=== PATIENT | female | born 1960 | race Caucasian/White ===

== ENCOUNTER 2019-05-27 18:10 | Inpatient (IN) | payer BC, SELFPAY ==
[2019-05-27 18:37] VITALS: BP 158/95; PULSE 78; RESP 16; TEMP 36.6; O2SAT 100; BMI 40.3
[2019-05-27 19:18] LABS: Basophils % 0.4 %; Eosinophils # 0.3 10^3/uL (0.0-0.8); Eosinophils % 2.6 %; Hematocrit 33.9 % (37.0-47.0); Hemoglobin 9.9 g/dL (11.5-15.3); Lymphocytes # 2.7 10^3/uL (0.8-4.8); Lymphocytes % 23.6 %; Mean Corpuscular HGB Conc 29.2 g/dL (30.0-36.0); Mean Corpuscular Hemoglobin 22.8 pg (28.0-34.0); Mean Corpuscular Volume 78.1 fL (81-99); Mean Platelet Volume 8.2 fL (7.4-10.4); Monocytes # 0.8 10^3/uL (0.2-0.9); Monocytes % 6.7 %; Neutrophils # 7.5 10^3/uL (1.8-7.7); Neutrophils % 65.1 %; Nucleated Red Blood Cells % 0 %; Platelet Count 613 10^3/cmm (130-400); Red Blood Count 4.34 10^6/uL (4.1-5.3); White Blood Count 11.4 10^3/uL (4.0-10.0)
[2019-05-27 19:31] LABS: Alanine Aminotransferase 13 U/L (0-33); Albumin Level 3.4 g/dL (3.5-5.2); Alkaline Phosphatase 183 IU/L (35-105); Anion Gap 17.2 (5-19); Aspartate Amino Transferase 17 U/L (0-32); Blood Urea Nitrogen 21 mg/dL (6-20); Calcium 9.6 mg/Dl (8.6-10.0); Carbon Dioxide 28 mmol/L (22-29); Chloride 98 mmol/L (98-107); Globulin 6.2 g/dL (1.3-4.6); Glomerular Filtration Rate 27.2 mL/min (90-130); Glucose 127 mg/dL (74-109); Lipase 58 U/L (13-60); Potassium 4.2 mmol/L (3.5-5.1); Sodium 139 mmol/L (136-145); Total Bilirubin 0.4 mg/dL (0.15-1.2); Total Protein 9.6 g/dL (6.6-8.7)
[2019-05-27 20:11] VITALS: PULSE 72; RESP 16; TEMP 36.6; O2SAT 94
--- NOTE | 2019-05-27 20:35 | ED_ITS ---
Entered by Tania Apple, acting as scribe for Aixa Bueno Heidy May 27, 2019 18:10 HPI - Abdominal Pain General: Chief Complaint: Abdominal Pain Stated Complaint: N/V/D Time Seen by Provider: 05/27/19 20:36 Source: patient and family Mode of arrival: ambulatory History of Present Illness: HPI narrative: 58 y/o female presents to the ED with complaint of L sided abd pain. She reports having N/V/D for about a week. Pt states she was seen by Dr. De La Cruz and was advised to come to the ER for fluids and CTA. MD elicited complaint: abdominal pain Onset (ago): week(s) (1) Severity: moderate Quality: cramping Associated Symptoms: Reports diarrhea, nausea and vomiting; Denies chills, dysuria, fever(s), hematuria and syncope Review of Systems Const: Denies: fever, chills, body aches, fatigue, malaise or diaphoresis Eyes: Denies: change in vision or blurry vision ENMT: Denies: throat pain, painful swallowing, hoarseness, ear pain, ear discharge, Change in hearing or nasal discharge Card: Denies: chest pain, palpitations, irregular heart rhythm, syncope, pre- syncope, shortness of breath on exertion or shortness of breath when lying down Resp: Denies: shortness of breath, productive cough, non-productive cough, wheezing, coughing up blood or chest congestion GI: Reports: nausea, vomiting and diarrhea : Denies: flank pain, painful urination, urinary frequency, urinary urgency, decreased urine ouput, urinary incontinence or blood in urine Musc: Denies: neck pain, back pain, extremity pain, extremity swelling, joint pain, joint swelling, joint warmth or joint stiffness Skin/Breast: Denies: rash, skin tenderness or yellow skin Neuro: Denies: headache, numbness in extremities, weakness in extremities, changes in sensation, lack of coordination, difficulty walking, dizziness, vertigo or confusion Endo: Denies: excessive thirst, tired all the time, cold intolerance, excessive sweating, flushing or hot flashes Zaheer/Lymph: Denies: easy bruising, easy bleeding, petechiae or enlarged lymph nodes All/Imm: Denies: hives, throat swelling, tongue swelling, facial swelling or acute wheezing PFSH ED PFSH: Statuses (acute, chronic, etc) shown below reflect problem list status as previously entered and may not be historically accurate Social History Smoking and tobacco status: never smoked Physical Exam Const: COMMON NORMALS: no apparent distress, oriented x3, no limitations, healthy appearing and well nourished EXAM LIMITATIONS: no altered mental status GENERAL APPEARANCE: cooperative, well kempt and well developed ORIENTATION/CONSCIOUSNESS: Yes awake HENMT: COMMON NORMALS: normocephalic, head/scalp atraumatic, hearing grossly normal bilaterally, external ears normal, EAC's normal, external nose normal and moist oral mucous membranes HEAD & SCALP: normal to inspection, normocephalic and atraumatic FACE & SINUS: normal facial exam and face symmetric NOSE: external nose normal and nares normal EXTERNAL EAR: Yes external ears normal EXTERNAL AUDITORY CANAL: EAC's normal MOUTH: oral and palatal mucosa normal and tongue normal Eye: COMMON NORMALS: PERRL, EOMs intact bilaterally, conjunctivae normal and no scleral icterus GENERAL EYE: normal appearance of both eyes and normal light reflex CONJUNCTIVA: Yes conjunctivae normal SCLERA: sclerae normal CORNEA: Yes corneas normal PUPIL: Yes PERRL DIRECT OPHTHALMOSCOPY: Yes normal light reflex Neck/C-Spine: COMMON NORMALS: full ROM, no lymphadenopathy, supple, no meningeal signs and no JVD GENERAL: Yes normal visual inspection and Yes trachea midline CERVICAL SPINE: Yes cervical ROM normal Chest: COMMONS NORMALS: inspection of chest normal and palpation of chest normal Resp: COMMON NORMALS: normal respiratory effort, no retractions, no use of accessory muscles and clear to auscultation bilaterally EFFORT & INSPECTION: Yes able to speak in complete sentences AUSCULTATION: clear to auscultation bilaterally Cardio: COMMON NORMALS: no JVD, regular rate, regular rhythm, S1 normal heart sound, S2 normal heart sound, no gallops, no clicks, no murmurs and no rub JUGULAR VENOUS DISTENTION: no JVD RATE: regular rate RHYTHM: regular rhythm HEART SOUNDS: S1 normal and S2 normal : COMMON NORMALS: Yes no CVA tenderness BLADDER/KIDNEY EXAM: Yes no CVA tenderness Back/Pelvis: COMMON NORMALS: no CVA tenderness, thoracic and lumbar spine normal to inspection, no thoracic nor lumbar tenderness and thoraco-lumbar ROM normal Extremity: COMMON NORMALS: normal to inspection, full ROM, normal capillary refill, no joint enlargement, no clubbing, cyanosis or edema and no calf tenderness Neuro: COMMON NORMALS: oriented x3, CN's II-XII intact bilaterally, moves all extremities, no focal motor deficits and no sensory deficits noted MENINGEAL SIGNS: Yes no meningeal signs Psych: COMMON NORMALS: mental status grossly normal, thought process normal, cooperative, affect normal, speech normal and activity/motor behavior normal APPEARANCE: Yes well kempt SPEECH: Yes normal speech THOUGHT PROCESS: normal thought process Skin: COMMON NORMALS: no rashes or lesions noted, skin turgor normal, no jaundice, no petechiae and no mottling GENERAL SKIN EXAM: no rashes or lesions noted and turgor normal Course Vital Signs: Vital signs: Vital Signs Temperature 97.9 F 05/27/19 20:11 Pulse Rate 79 05/27/19 21:45 Respiratory Rate 16 05/27/19 20:41 Blood Pressure 156/94 05/27/19 21:45 Pulse Oximetry 94 05/27/19 20:41 MDM - Abdominal Pain MDM Narrative: Medical decision making narrative: The case was reviewed in full with Dr. Waldrop, he will admit to the hospital for further care. The patient will be admitted for IV hydration for her renal insufficiency, Zosyn for her diverticulitis and further evaluation of her anemia and the mass on her liver. Lab Data: Attestation: I reviewed the patient's lab results. Labs: Lab Results 05/27/19 05/27/19 05/27/19 Range/Units 19:12 19:12 19:12 WBC 11.4 H (4.0-10.0) 10^3/ uL RBC 4.34 (4.1-5.3) 10^6/u L Hgb 9.9 L (11.5-15.3) g/dL Hct 33.9 L (37.0-47.0) % MCV 78.1 L (81-99) fL MCH 22.8 L (28.0-34.0) pg MCHC 29.2 L (30.0-36.0) g/dL RDW 19.0 H (12.1-15.1) % Plt Count 613 H (130-400) 10^3/c mm MPV 8.2 (7.4-10.4) fL Neut % (Auto) 65.1 % Lymph % (Auto) 23.6 % Swift % (Auto) 6.7 % Eos % (Auto) 2.6 % Baso % (Auto) 0.4 % Neut # (Auto) 7.5 (1.8-7.7) 10^3/u L Lymph # (Auto) 2.7 (0.8-4.8) 10^3/u L Swift # (Auto) 0.8 (0.2-0.9) 10^3/u L Eos # (Auto) 0.3 (0.0-0.8) 10^3/u L Baso # (Auto) 0.0 (0.0-0.1) 10^3/u L Nucleated RBC % (a uto) 0 % Nucleated RBCs # 0.0 /100WBC Sodium 139 (136-145) mmol/L Potassium 4.2 (3.5-5.1) mmol/L Chloride 98 (98-107) mmol/L Carbon Dioxide 28 (22-29) mmol/L Anion Gap 17.2 (5-19) BUN 21 H (6-20) mg/dL Creatinine 1.9 H (0.5-0.9) mg/dL GFR Calculation 27.2 L (90-130) mL/min Glucose 127 H (74-109) mg/dL Calcium 9.6 (8.6-10.0) mg/Dl Magnesium (1.7-2.3) mg/dL Total Bilirubin 0.4 (0.15-1.2) mg/dL AST 17 (0-32) U/L ALT 13 (0-33) U/L Alkaline Phosphata se 183 H (35-105) IU/L Troponin T Baselin e (0-10) ng/mL Total Protein 9.6 H (6.6-8.7) g/dL Albumin 3.4 L (3.5-5.2) g/dL Globulin 6.2 H (1.3-4.6) g/dL Lipase 58 (13-60) U/L Urine Color (Yellow) Urine Appearance (CLEAR) Urine pH (5-7) Ur Specific Gravit y (1.005-1.030) Urine Protein (Negative) Urine Glucose (UA) (Normal) Urine Ketones (Negative) Urine Occult Blood (Negative) Urine Nitrate (Negative) Urine Bilirubin (NEGATIVE) Urine Urobilinogen (Negative) mg/dL Ur Leukocyte Zarina ase (Negative) Urine RBC (0-2) /hpf Urine WBC (0-5) /hpf Ur Squamous Epith Cells (0-5) Urine Bacteria (NONE) Urine Mucus Serum Ketones Negative (Negative) 05/27/19 05/27/19 05/27/19 Range/Units 19:12 19:12 21:36 WBC (4.0-10.0) 10^3/ uL RBC (4.1-5.3) 10^6/u L Hgb (11.5-15.3) g/dL Hct (37.0-47.0) % MCV (81-99) fL MCH (28.0-34.0) pg MCHC (30.0-36.0) g/dL RDW (12.1-15.1) % Plt Count (130-400) 10^3/c mm MPV (7.4-10.4) fL Neut % (Auto) % Lymph % (Auto) % Swift % (Auto) % Eos % (Auto) % Baso % (Auto) % Neut # (Auto) (1.8-7.7) 10^3/u L Lymph # (Auto) (0.8-4.8) 10^3/u L Swift # (Auto) (0.2-0.9) 10^3/u L Eos # (Auto) (0.0-0.8) 10^3/u L Baso # (Auto) (0.0-0.1) 10^3/u L Nucleated RBC % (a uto) % Nucleated RBCs # /100WBC Sodium (136-145) mmol/L Potassium (3.5-5.1) mmol/L Chloride (98-107) mmol/L Carbon Dioxide (22-29) mmol/L Anion Gap (5-19) BUN (6-20) mg/dL Creatinine (0.5-0.9) mg/dL GFR Calculation (90-130) mL/min Glucose (74-109) mg/dL Calcium (8.6-10.0) mg/Dl Magnesium 2.3 (1.7-2.3) mg/dL Total Bilirubin (0.15-1.2) mg/dL AST (0-32) U/L ALT (0-33) U/L Alkaline Phosphata se (35-105) IU/L Troponin T Baselin e 24 H (0-10) ng/mL Total Protein (6.6-8.7) g/dL Albumin (3.5-5.2) g/dL Globulin (1.3-4.6) g/dL Lipase (13-60) U/L Urine Color Dark yellow (Yellow) Urine Appearance Cloudy (CLEAR) Urine pH 5 (5-7) Ur Specific Gravit y 1.020 (1.005-1.030) Urine Protein 1+ H (Negative) Urine Glucose (UA) Norm (Normal) Urine Ketones 1+ H (Negative) Urine Occult Blood 2+ H (Negative) Urine Nitrate Positive H (Negative) Urine Bilirubin 1+ H (NEGATIVE) Urine Urobilinogen Norm (Negative) mg/dL Ur Leukocyte Zarina ase 2+ H (Negative) Urine RBC 15-25 H (0-2) /hpf Urine WBC Too numerous to c nt H (0-5) /hpf Ur Squamous Epith Cells 5-10 H (0-5) Urine Bacteria 3+ H (NONE) Urine Mucus Trace Serum Ketones (Negative) Imaging Data ^: CT Abd/Pel: Radiologist's impression: [place] [address] CT Scan Report Signed Patient: Nona Sevilla Unit #: [id number] : 1960 Age/Sex: 58 / F ADM Date: 05/27/19 Loc: ER Room/Bed: Attending Dr: Ordering Provider/Ordering MD: Aixa Bueno DO Date of Service: 05/27/19 Procedure(s): CT abdomen pelvis con [id number] Accession Number(s): [id number] Report Number: [id number] PROCEDURE INFORMATION: Exam: CT Abdomen And Pelvis Without Contrast Exam date and time: 05/27/2019 8:53 PM Age: 58 years old Clinical indication: Nausea and vomiting and other: Diarrhea; Abdominal pain; Localized; Left; Prior surgery; Surgery type: Gb TECHNIQUE: Imaging protocol: Computed tomography of the abdomen and pelvis without contrast. Total DLP: 1784.65 mGy-cm Radiation optimization: All CT scans at this facility use at least one of these dose optimization techniques: automated exposure control; mA and/or kV adjustment per patient size (includes targeted exams where dose is matched to clinical indication); or iterative reconstruction. COMPARISON: No relevant prior studies available. FINDINGS: There is scarring and atelectasis within the lung bases. There are degenerative changes of the spine. There is a 2.7 cm mass along the margin of the medial segment of the left lobe of the liver. This is indeterminate on this noncontrast exam. No additional liver masses are identified. The there is no intrahepatic biliary dilatation. The patient is status post cholecystectomy. The pancreas is unremarkable. The spleen is unremarkable. There is no adrenal mass. There is bilateral perinephric fat stranding. No renal mass is identified. There are no renal calculi or hydronephrosis. The ureters are normal in caliber. No calculi are seen along the course of the ureters. The aorta is normal in caliber. The IVC is normal in caliber. There is no retroperitoneal adenopathy. There is no mesenteric adenopathy. The stomach is unremarkable. There is some mild small bowel distention within the left mid abdomen which may represent ileus. No small bowel wall thickening or transition zone is seen. There is no small bowel obstruction. The ascending and transverse colon appear normal. There are diverticuli involving the descending colon. There is noted to be some thickening of the wall of the distal descending colon and sigmoid colon with some mild pericolonic fat stranding. Findings would suggest mild diverticulitis. There is no abscess or perforation. Within the pelvis: The appendix is not visualized to advantage. However, there is no CT evidence for acute appendicitis. The bladder is unremarkable. The patient is status post hysterectomy. There are no adnexal masses. There is no free fluid within the pelvis. There is no inguinal adenopathy. There is no pelvic adenopathy. CT/CT abdomen pelvis wo con [id number] IMPRESSION: 1. Findings suggestive of diverticulitis involving the sigmoid descending junction. No abscess or perforation. 2. There is some adjacent small bowel distention which may represent reactive ileus. No evidence for small bowel obstruction is seen. 3. 2.7 cm indeterminate mass involving the left lobe of the liver. Comparison to old studies would be helpful. Further evaluation with contrast-enhanced CT or MRI on a nonemergent basis could be performed. Radiation Dose CTDIVOL = (mGy): DLP = 1784.65 (mGy-cm) Dictated By: Yoan Llamas MD Signed By: Yoan Llamas MD Signed Date/Time: 05/27/192121 DD/ 20 EKG Data ^: EKG 1: Attestation: I personally reviewed and interpreted this EKG as follows: EKG interpretation date: 05/27/19 EKG interpretation time: 21:06 Interpretation: Normal sinus rhythm at 70 beats a minute, LVH, normal axis, normal ST-T wave segments. Discharge Plan Discharge Patient Disposition: Admitted As Inpatient Clinical Impression: Diverticulitis, Acute kidney insufficiency Condition: Stable Referrals: Ruel Corral DO [Primary Care Provider] - Coding Level of Care Code ED Photoengraving Photographer for Chg Fwd Exam Problem Focused The documentation recorded by the Zechariah iqbal Ashley, accurately reflects the service I personally performed and the decisions made by Ximena silva Eli N May 27, 2019 18:10
[2019-05-27 20:41] VITALS: BP 155/93; PULSE 75; RESP 16; O2SAT 94
--- NOTE | 2019-05-27 20:44 | ECG_ITS ---
Measurements Intervals [place] Rate: 71 P: 23 AL: 160 QRS: 3 QRSD: 107 T: 56 QT: 396 QTc: 431 SINUS RHYTHM MODERATE VOLTAGE CRITERIA FOR LVH, CONSIDER NORMAL VARIANT [MEETS CRITERIA IN ONE ONE OF: R(aVL), S(V1), R(V5), R(V5/V6)+S(V1)] NONSPECIFIC T-WAVE ABNORMALITY No previous ECG available for comparison Electronically Signed On 05-27-2019 22:03:22 DIGESTER CAPPER by Lubna Koenig M.D. [email or web address] renae
--- NOTE | 2019-05-27 20:44 | CTR_ITS ---
PROCEDURE INFORMATION: Exam: CT Abdomen And Pelvis Without Contrast Exam date and time: 05/27/2019 8:53 PM Age: 58 years old Clinical indication: Nausea and vomiting and other: Diarrhea; Abdominal pain; Localized; Left; Prior surgery; Surgery type: Gb TECHNIQUE: Imaging protocol: Computed tomography of the abdomen and pelvis without contrast. Total DLP: 1784.65 mGy-cm Radiation optimization: All CT scans at this facility use at least one of these dose optimization techniques: automated exposure control; mA and/or kV adjustment per patient size (includes targeted exams where dose is matched to clinical indication); or iterative reconstruction. COMPARISON: No relevant prior studies available. FINDINGS: There is scarring and atelectasis within the lung bases. There are degenerative changes of the spine. There is a 2.7 cm mass along the margin of the medial segment of the left lobe of the liver. This is indeterminate on this noncontrast exam. No additional liver masses are identified. The there is no intrahepatic biliary dilatation. The patient is status post cholecystectomy. The pancreas is unremarkable. The spleen is unremarkable. There is no adrenal mass. There is bilateral perinephric fat stranding. No renal mass is identified. There are no renal calculi or hydronephrosis. The ureters are normal in caliber. No calculi are seen along the course of the ureters. The aorta is normal in caliber. The IVC is normal in caliber. There is no retroperitoneal adenopathy. There is no mesenteric adenopathy. The stomach is unremarkable. There is some mild small bowel distention within the left mid abdomen which may represent ileus. No small bowel wall thickening or transition zone is seen. There is no small bowel obstruction. The ascending and transverse colon appear normal. There are diverticuli involving the descending colon. There is noted to be some thickening of the wall of the distal descending colon and sigmoid colon with some mild pericolonic fat stranding. Findings would suggest mild diverticulitis. There is no abscess or perforation. Within the pelvis: The appendix is not visualized to advantage. However, there is no CT evidence for acute appendicitis. The bladder is unremarkable. The patient is status post hysterectomy. There are no adnexal masses. There is no free fluid within the pelvis. There is no inguinal adenopathy. There is no pelvic adenopathy. CT/CT abdomen pelvis wo con [id number] IMPRESSION: 1. Findings suggestive of diverticulitis involving the sigmoid descending junction. No abscess or perforation. 2. There is some adjacent small bowel distention which may represent reactive ileus. No evidence for small bowel obstruction is seen. 3. 2.7 cm indeterminate mass involving the left lobe of the liver. Comparison to old studies would be helpful. Further evaluation with contrast-enhanced CT or MRI on a nonemergent basis could be performed. Radiation Dose CTDIVOL = (mGy): DLP = 1784.65 (mGy-cm)
[2019-05-27] MEDS: ondansetron 2 mg/ML SDV 2 mL 4 MG IVP (21:02)
[2019-05-27] MEDS: sodium chloride 0.9% 1,000 ML 999 ML IV (21:02)
[2019-05-27] MEDS: morphine 4 mg/mL SDV 1 mL IVP (21:02)
[2019-05-27 21:04] LABS: Ketone (Acetest) Serum Negative (Negative)
--- NOTE | 2019-05-27 21:05 | PC.NURSE ---
Introduced self to patient and initiated vital signs. Pt is A&O x 3 and agreeable. Pt states that the reason for the ER visit today is due to abdominal pain in LLQ of torso. Pt also complaining of some n/v. Reassured patient of needs and will continue to monitor. Awaiting provider at bedside.
[2019-05-27 21:09] LABS: Magnesium 2.3 mg/dL (1.7-2.3)
--- NOTE | 2019-05-27 21:28 | ECG_ITS ---
Measurements Intervals [place] Rate: 70 P: -21 MN: 131 QRS: 3 QRSD: 108 T: 47 QT: 388 QTc: 419 SINUS RHYTHM MODERATE VOLTAGE CRITERIA FOR LVH, CONSIDER NORMAL VARIANT [MEETS CRITERIA IN ONE ONE OF: R(aVL), S(V1), R(V5), R(V5/V6)+S(V1)] NONSPECIFIC T-WAVE ABNORMALITY No previous ECG available for comparison Electronically Signed On 05-27-2019 22:03:17 DISTRIBUTION ANALYST by Lubna Koenig M.D. [email or web address]
[2019-05-27 21:44] LABS: Troponin(5th) Baseline 24 ng/mL (0-10)
[2019-05-27 21:45] VITALS: BP 131/88; BP 143/86; BP 156/94; PULSE 79; PULSE 85; PULSE 98
[2019-05-27 21:55] LABS: Blood Urine 2+ (Negative); Glucose Urine UA Norm (Normal); Ketones Urine 1+ (Negative); Protein Urine 1+ (Negative); Urine Appearance Cloudy (CLEAR); Urine Color Dark Yellow (Yellow); pH Urine 5 (5-7)
[2019-05-27 21:56] LABS: Bilirubin Urine 1+ (NEGATIVE); Leukocyte Esterase Urine 2+ (Negative); Nitrate Urine Positive (Negative); Urobilinogen Urine Norm (Negative)
[2019-05-27 22:04] LABS: Add Urine Culture? Yes; Bacteria Urine 3+; Mucus Urine TRACE; RBC Urine 15-25 /hpf (0-2); WBC Urine TOO NUMEROUS TO CNT /hpf (0-5)
[2019-05-27] MEDS: piperacillin-tazobactam 3.375 GM in sodium chloride 0.9% (plus) 50 ML IV (22:50)
[2019-05-27 23:02] LABS: Glucose Point of Care 93 mg/dL (70-110)
--- NOTE | 2019-05-27 23:07 | P.HP_ITS ---
Providers/Chief Complaint Primary Care Provider: Ruel Corral DO Chief Complaint: DIVERTICULITIS History of Present Illness Nona Sevilla is a 58 year old female who presented to the hospital with chief complaint of 1 week history of nausea vomiting and diarrhea. Patient is stating that she went to [place] with her and 8 breakfast at [facility] last week around Sunday and since then she has been having nausea and vomiting, she has not been able to keep anything down, she has had more than 20 episodes of emesis, she has not noticed any blood in her vomitus, she also experienced diarrhea after few episodes of nausea and vomiting her diarrhea consisted of small quantity of liquid stools without any blood, she did notice subjective fever but did not measure temperature with thermometer, she was feeling extrem marsha tired and lethargic, for last 1 week her p.o. intake has been very poor, she is denying recent travel outside [facility], camping. She has cats as pets, her has an outside dog. Patient is stating that her PCP Dr. Corral did EGD and colonoscopy. EGD showed gastric ulcer and colonoscopy was unremarkable. She is denying any history of constipation. Diagnostics in ER showed normal hemodynamics with leukocytosis and diverticulitis without abscess hospital service was requested to admit the patient because of her recurrent nausea and vomiting and poor p.o. intake with [facility], there are incidental finding of liver mass, Review of Systems Const: Reports: chills, body aches, change in appetite, change in weight, fatigue and malaise Eyes: Denies: change in vision ENMT: Denies: throat pain Card: Denies: chest pain Resp: Denies: shortness of breath GI: Reports: abdominal pain, nausea, vomiting, heartburn/indigestion and diarrhea; Denies: vomiting blood, coffee grounds in vomit, difficulty swallowing, constipation, bloating or cramping : Denies: flank pain or difficulty urinating Musc: Denies: neck pain Skin/Breast: Denies: rash Neuro: Denies: headache Psych: Reports: anxiety Endo: Denies: excessive urination Zaheer/Lymph: Denies: easy bruising All/Imm: Denies: hives Medications/Allergies Allergies Allergy/AdvReac Type Severity Reaction Status Date / Time nabumetone [From Relafen] Allergy ADR-Nausea Verified 05/27/19 18:37 prochlorperazine Allergy ADR/ALGY-Pa Verified 05/27/19 18:37 [From Compazine] lpitations topiramate [From Topamax] Allergy ADR-Agitate Verified 05/27/19 18:37 d lodine Allergy ADV-Weaknes Uncoded 05/27/19 18:37 s nasoquart Allergy ADR-Nausea Uncoded 05/27/19 18:37 PFSH Acute PFSH: Statuses (acute, chronic, etc) shown below reflect problem list status as previously entered and may not be historically accurate Medical History (Updated 05/27/19 @ 23:32 by Aria Waldrop MD) Anxiety (Acute) Chronic GERD (Acute) Gastric ulcer (Acute) HX: benign breast biopsy (Acute) Insulin dependent diabetes mellitus (Acute) Iron deficiency anemia (Acute) Normal colonoscopy (Acute) Type 2 diabetes mellitus (Acute) Surgical History (Updated 05/27/19 @ 23:32 by Aria Waldrop MD) H/O arthroscopic knee surgery (Acute) H/O discectomy (Acute) History of esophagogastroduodenoscopy (EGD) (Acute) History of hysterectomy (Acute) History of tubal ligation (Acute) Hx of cholecystectomy (Acute) Family History (Updated 05/27/19 @ 23:33 by Aria Waldrop MD) Father CAD (coronary artery disease) Mother CAD (coronary artery disease) Social History (Updated 05/27/19 @ 23:33 by Aria Waldrop MD) Smoking and tobacco status: never smoked Alcohol intake: never Substance/Drug Use: never Lives independently: Yes Household members: spouse Marital status: Vitals/I&O/Wt Last Vital Signs Temp 97.9 F 05/27/19 20:11 Pulse 79 05/27/19 21:45 Resp 16 05/27/19 20:41 BP 156/94 05/27/19 21:45 Pulse Ox 94 05/27/19 20:41 05/27/19 05/27/19 05/28/19 14:59 22:59 06:59 Intake Total 340.19 / 340.19 Balance 340.19 / 340.19 Weight last 48 hrs Weight 113.398 kg Physical Exam Narrative: EXAM NARRATIVE: Morbidly obese female who is sitting comfortably in her bed Normal hemodynamics S1-S2 without any murmur or signs of heart failure or JVD Clear to auscultation lungs without any adventitious sounds or wheezing Abdomen is soft, bowel sounds are present in all quadrants, visceral obesity positive, mild tenderness on deep palpation left lower quadrant otherwise no signs of peritonitis No CVA tenderness Nonfocal neurological exam Skin shows no signs ischemia gangrene ulcer No lower extremity swelling Appropriate mood and affect Data : 05/27/19 19:12 05/27/19 19:12 A&P Assessment and plan (1) Diverticulitis: Status: Acute Code(s): K57.92 - Diverticulitis of intestine, part unspecified, without perforation or abscess without bleeding (2) Acute kidney insufficiency: Status: Acute Code(s): N28.9 - Disorder of kidney and ureter, unspecified (3) Anemia: Status: Acute Code(s): D64.9 - Anemia, unspecified (4) Liver mass: Status: Acute Code(s): R16.0 - Hepatomegaly, not elsewhere classified Additional A&P Information Mild non-complicated diverticulitis No signs of abscess on CT abdomen Recurrent nausea vomiting secondary to ileus necessitating inpatient care I will keep her on IV fluids with clear liquid diet and advance diet as tolerated, keep her on Zosyn for now Once she is able to tolerate her diet she will be ready for discharge Incidental finding of liver mass 2.7 cm No previous history of cancers or family history of gastric cancers however she had EGD with positive gastric ulcer PCP is Dr. Corral would request records in the morning I will get liver ultrasound, she will need another ultrasound in 6 months Iron deficiency anemia She had EGD and colonoscopy in 2019 which showed gastric ulcer Acute kidney injury secondary to dehydration and recurrent emesis I will keep her on IV fluids, anticipating improvement with IV fluid resuscitation GERD and gastric ulcer: I would keep her on Protonix 20mg IV daily Full code DVT prophylaxis: Contraindicated her hemoglobin trended down to 9, her baseline is around 10-11, I would use SCDs for now Attestations Medical Necessity Statement*: Anticipating her discharge in less than 48 hours once she is able to tolerate her diet Time Spent in Patient Care: (>than 50% of time spent in counselling and/or direct pt care on unit) . 50 Coding Level of Care Code Acute Capacitor Repairer for Chg Fwd Diagnoses Diverticulitis K57.92 Acute kidney insufficiency N28.9 Anemia D64.9 Liver mass R16.0
[2019-05-28] VITALS (8 sets, daily range): BP systolic 115–137; BP diastolic 76–89; PULSE 71–93; RESP 16–32; TEMP 36.7–37; O2SAT 90–97
[2019-05-28] MEDS: ondansetron 2 mg/ML SDV 2 mL 4 MG IVP ×4 (01:50→19:42)
[2019-05-28] MEDS: sodium chloride 0.9% 1,000 ML 75 ML IV ×2 (01:50→16:45)
[2019-05-28 02:28] LABS: Ferritin 85 ng/mL (15-150); Iron 31 ug/dL (37-145); Percent Saturation 12.7 % (20-50); Total Iron Binding Capacity 244 mg/dL; Unsaturated Iron Binding 213 ug/dL (112-347)
[2019-05-28] MEDS: piperacillin-tazobactam 3.375 GM in sodium chloride 0.9% (plus) 50 ML IV ×3 (06:19→22:41)
[2019-05-28 06:49] LABS: Glucose Point of Care 45 mg/dL (70-110)
--- NOTE | 2019-05-28 06:52 | PC.NURSE ---
HYPOGLYCEMIA BS in AM is 42, per protocol patient given 8 oz of orange juice, patient is alert and oriented x 4 and no acute distress at this time. Will recheck BS again in 15 minutes.
--- NOTE | 2019-05-28 07:19 | PC.NURSE ---
HYPOGLYCEMIA BS in AM is 45, per protocol patient given 8 oz of orange juice, patient is alert and oriented x 4 and no acute distress at this time. Will recheck BS again in 15 minutes
[2019-05-28 07:27] LABS: Glucose Point of Care 45 mg/dL (70-110)
[2019-05-28 07:49] LABS: Glucose Point of Care 70 mg/dL (70-110)
[2019-05-28] MEDS: pantoprazole 40 mg SDV 20 MG IVP (09:45)
--- NOTE | 2019-05-28 10:35 | PC.RESP ---
pt sleeping with s/s ayad
[2019-05-28 12:14] LABS: Glucose Point of Care 161 mg/dL (70-110)
[2019-05-28 16:49] LABS: Glucose Point of Care 138 mg/dL (70-110)
--- NOTE | 2019-05-28 19:31 | PM.PN ---
Subjective Subjective: Interval history: Patient states that she is doing better this morning, mild, no vomiting, no lightheadedness, no dizziness, continues to have some left lower quadrant pain, no fevers, no chills Vitals/I&O/Wt Last Vital Signs Temp 98.6 F 05/28/19 15:51 Pulse 72 05/28/19 15:51 Resp 16 05/28/19 15:51 BP 115/76 05/28/19 15:51 Pulse Ox 96 05/28/19 15:51 05/28/19 05/28/19 05/28/19 06:59 14:59 22:59 Intake Total 4693.00 / 5033.19 530 / 530 1476.75 / Balance 4693.00 / 5033.19 530 / 530 1476.75 / Weight last 48 hrs Weight 113.398 kg Physical Exam Const: COMMON NORMALS: no apparent distress and oriented x3 HENMT: COMMON NORMALS: normocephalic HEAD & SCALP: normocephalic Neck/C-Spine: COMMON NORMALS: no JVD Resp: COMMON NORMALS: normal respiratory effort, no retractions, no use of accessory muscles and clear to auscultation bilaterally AUSCULTATION: clear to auscultation bilaterally Cardio: COMMON NORMALS: no JVD, regular rate, regular rhythm, S1 normal heart sound and S2 normal heart sound RATE: regular rate RHYTHM: regular rhythm HEART SOUNDS: S1 normal and S2 normal GI: COMMON NORMALS: normal to inspection, nondistended, normoactive bowel sounds, soft to palpation, no hepatosplenomegaly and no masses AUSCULTATION: Yes hypoactive bowel sounds PALPATION: Yes soft, Yes tender Details: LLQ and Yes no hepatosplenomegaly Extremity: COMMON NORMALS: normal capillary refill, no clubbing, cyanosis or edema, no calf tenderness and no pedal edema Neuro: COMMON NORMALS: oriented x3 Psych: COMMON NORMALS: mental status grossly normal Data : 05/27/19 19:12 05/27/19 19:12 A&P Assessment and plan (1) Diverticulitis: -Continue gentle hydration -Advance to full liquid diet -Continue Zosyn Status: Acute Code(s): K57.92 - Diverticulitis of intestine, part unspecified, without perforation or abscess without bleeding (2) Acute kidney insufficiency: Continue IV fluids Status: Acute Code(s): N28.9 - Disorder of kidney and ureter, unspecified (3) Anemia: Likely related to slow GI bleed related to gastric ulcer seen on EGD a year ago Continue Protonix, add Carafate Ferrous sulfate twice daily Will require an outpatient EGD once stable Status: Acute Code(s): D64.9 - Anemia, unspecified (4) Liver mass: Has a 2.7 cm liver mass We will order an AFP Will require outpatient follow-up with oncology Status: Acute Code(s): R16.0 - Hepatomegaly, not elsewhere classified Additional A&P Information Mild non-complicated diverticulitis No signs of abscess on CT abdomen Recurrent nausea vomiting secondary to ileus necessitating inpatient care I will keep her on IV fluids with clear liquid diet and advance diet as tolerated, keep her on Zosyn for now Once she is able to tolerate her diet she will be ready for discharge Incidental finding of liver mass 2.7 cm No previous history of cancers or family history of gastric cancers however she had EGD with positive gastric ulcer PCP is Dr. Corral would request records in the morning I will get liver ultrasound, she will need another ultrasound in 6 months Iron deficiency anemia She had EGD and colonoscopy in 2019 which showed gastric ulcer Acute kidney injury secondary to dehydration and recurrent emesis I will keep her on IV fluids, anticipating improvement with IV fluid resuscitation GERD and gastric ulcer: I would keep her on Protonix 20mg IV daily Full code DVT prophylaxis: Contraindicated her hemoglobin trended down to 9, her baseline is around 10-11, I would use SCDs for now Attestations Medical Necessity Statement*: Patient requires continued hospitalization, for acute diverticulitis Coding Level of Care Code Acute Clinical Services Manager for [facility] Diagnoses Diverticulitis K57.92 Acute kidney insufficiency N28.9 Anemia D64.9 Liver mass R16.0
[2019-05-28] MEDS: ferrous sulfate EC 325 mg Tablet PO (20:08)
[2019-05-28] MEDS: sucralfate 1 gm Tablet PO (20:25)
[2019-05-28 20:47] LABS: Tumor Marker Alpha Fetoprotein 1.1 ng/mL (0-8.3)
[2019-05-28 21:19] LABS: Glucose Point of Care 133 mg/dL (70-110)
[2019-05-28] MEDS: insulin glargine 100 units/1 mL 30 UNIT SUBCUT (22:41)
[2019-05-29] VITALS: BP 127/74; PULSE 78; RESP 20; TEMP 36.9; O2SAT 95
[2019-05-29] MEDS: ondansetron 2 mg/ML SDV 2 mL 4 MG IVP ×2 (01:05→08:49)
[2019-05-29 04:00] VITALS: BP 132/76; PULSE 74; RESP 20; TEMP 36.6; O2SAT 94
[2019-05-29 06:05] LABS: Basophils % 0.3 %; Eosinophils # 0.2 10^3/uL (0.0-0.8); Eosinophils % 2.6 %; Hematocrit 29.1 % (37.0-47.0); Hemoglobin 8.3 g/dL (11.5-15.3); Lymphocytes # 1.6 10^3/uL (0.8-4.8); Lymphocytes % 21.6 %; Mean Corpuscular HGB Conc 28.5 g/dL (30.0-36.0); Mean Corpuscular Hemoglobin 23.4 pg (28.0-34.0); Mean Corpuscular Volume 82.2 fL (81-99); Mean Platelet Volume 7.8 fL (7.4-10.4); Monocytes # 0.5 10^3/uL (0.2-0.9); Neutrophils % 67.6 %; Nucleated Red Blood Cells % 0 %; Platelet Count 449 10^3/cmm (130-400); Red Blood Count 3.54 10^6/uL (4.1-5.3); Red Cell Distribution Width 19.4 % (12.1-15.1); White Blood Count 7.4 10^3/uL (4.0-10.0)
[2019-05-29] MEDS: sucralfate 1 gm Tablet PO ×2 (06:15→12:21)
[2019-05-29] MEDS: sodium chloride 0.9% 1,000 ML 75 ML IV (06:17)
[2019-05-29] MEDS: piperacillin-tazobactam 3.375 GM in sodium chloride 0.9% (plus) 50 ML IV (06:17)
[2019-05-29 06:25] LABS: Alanine Aminotransferase 7 U/L (0-33); Albumin Level 2.7 g/dL (3.5-5.2); Alkaline Phosphatase 133 IU/L (35-105); Anion Gap 14.1 (5-19); Aspartate Amino Transferase 11 U/L (0-32); Blood Urea Nitrogen 11 mg/dL (6-20); Calcium 8.8 mg/Dl (8.6-10.0); Carbon Dioxide 27 mmol/L (22-29); Chloride 108 mmol/L (98-107); Globulin 5.1 g/dL (1.3-4.6); Glomerular Filtration Rate 38.6 mL/min (90-130); Glucose 68 mg/dL (74-109); Magnesium 1.9 mg/dL (1.7-2.3); Phosphorus 3.4 mg/dL (2.5-4.5); Potassium 4.1 mmol/L (3.5-5.1); Sodium 145 mmol/L (136-145); Total Bilirubin 0.4 mg/dL (0.15-1.2); Total Protein 7.8 g/dL (6.6-8.7)
[2019-05-29 07:01] LABS: Glucose Point of Care 61 mg/dL (70-110)
[2019-05-29 07:44] VITALS: BP 134/79; PULSE 70; RESP 18; TEMP 37.2; O2SAT 93
[2019-05-29] MEDS: pantoprazole 40 mg SDV IVP (08:49)
[2019-05-29] MEDS: ferrous sulfate EC 325 mg Tablet PO (08:49)
[2019-05-29 11:09] LABS: Glucose Point of Care 197 mg/dL (70-110)
[2019-05-29 12:00] VITALS: BP 133/82; PULSE 79; RESP 18; TEMP 36.9; O2SAT 94
[2019-05-29] MEDS: metroNIDAZOLE 500 MG Tablet PO (14:25)
--- NOTE | 2019-05-29 15:01 | PM.DCS ---
Discharge Providers Date of Admission: 05/28/19 19:35 Date of Discharge: 05/29/19 Attending Provider at Admission: Aria Waldrop MD Attending Provider at Discharge: Baudilio Navarrete MD Primary Care Provider: Ruel Corral DO Diagnoses at Discharge Discharge Diagnosis (1) Diverticulitis: Status: Acute (2) Acute kidney insufficiency: Status: Acute (3) Anemia: Status: Acute (4) Liver mass: Status: Acute Reason for Visit Reason for Visit: Reason For Visit: DIVERTICULITIS Hospital Course Hospital Course: This is a 15-year-old female who presents to clinic for a one-week history of abdominal pain, nausea, vomiting and diarrhea. Patient was admitted for acute diverticulitis, received IV hydration, pain control, broad-spectrum antibiotics, clinically improved, was discharged on ciprofloxacin and Flagyl for 12 remaining days, and instructions to drink plenty of electrolyte balance fluids, and to slowly advance diet as tolerated. Patient was also found to have anemia on admission, had a an EGD in 2019 which showed a gastric ulcer, has a history of iron deficiency anemia, thus likely patient has a slow upper GI bleed related to her gastric ulcer. She was discharged on Protonix 40 twice daily, Carafate, hemoglobin on discharge was 8.3, she was instructed to recheck her hemoglobin in 3 days, with a follow-up with primary care provider next week, and consideration of a repeat EGD with surgery as outpatient in 1 month. Patient was advised if she had bloody or black stools or lightheadedness or dizziness come back to the emergency room. Patient was advised to avoid NSAIDs or aspirin. In addition patient on imaging was found to have an incidental 2.7 cm indeterminate mass involving the left lobe of the liver, her AFP was 1.1, patient was instructed to follow-up with oncology in 1 month. Physical Exam Const: COMMON NORMALS: no apparent distress and oriented x3 HENMT: COMMON NORMALS: normocephalic HEAD & SCALP: normocephalic Neck/C-Spine: COMMON NORMALS: no JVD Resp: COMMON NORMALS: normal respiratory effort, no retractions, no use of accessory muscles and clear to auscultation bilaterally AUSCULTATION: clear to auscultation bilaterally Cardio: COMMON NORMALS: no JVD, regular rate, regular rhythm, S1 normal heart sound and S2 normal heart sound RATE: regular rate RHYTHM: regular rhythm HEART SOUNDS: S1 normal and S2 normal GI: COMMON NORMALS: normal to inspection, nondistended, normoactive bowel sounds, soft to palpation and no hepatosplenomegaly AUSCULTATION: Yes hypoactive bowel sounds PALPATION: Yes soft, Yes tender and Yes no hepatosplenomegaly Extremity: COMMON NORMALS: normal capillary refill, no clubbing, cyanosis or edema, no calf tenderness and no pedal edema Neuro: COMMON NORMALS: oriented x3 Psych: COMMON NORMALS: mental status grossly normal Discharge Data Data Completed and Pending: Completed Studies During Hospitalization Category Date Time Status CT abdomen pelvis wo con [id number] Urge nt Cat Scan 05/27/19 20:44 Completed Pending at discharge Category Date Time Status CBC [Complete Blo od Count w/Auto] A M LABS Lab 05/30/19 04:00 Ordered CBC [Complete Blo od Count w/Auto] A M LABS Lab 05/31/19 04:00 Ordered Comprehensive Met abolic Panel AM LA BS Lab 05/30/19 04:00 Ordered Comprehensive Met abolic Panel AM LA BS Lab 05/31/19 04:00 Ordered Gastricult Occult BLD Routine Lab 05/28/19 01:27 Ordered Magnesium AM LABS Lab 05/30/19 04:00 Ordered Magnesium AM LABS Lab 05/31/19 04:00 Ordered Phosphorus AM LAB S Lab 05/30/19 04:00 Ordered Phosphorus AM LAB S Lab 05/31/19 04:00 Ordered Urine Culture Sta t Lab 05/27/19 21:36 Results Labs from last 24 hours 05/29/19 05/29/19 05/29/19 11:03 06:43 05:54 WBC RBC Hgb Hct MCV MCH MCHC RDW Plt Count MPV Neut % (Auto) Lymph % (Auto) [place] % (Auto) Eos % (Auto) Baso % (Auto) Neut # (Auto) Lymph # (Auto) [place] # (Auto) Eos # (Auto) Baso # (Auto) Nucleated RBC % (a uto) Nucleated RBCs # Sodium 145 Potassium 4.1 Chloride 108 H Carbon Dioxide 27 Anion Gap 14.1 BUN 11 Creatinine 1.4 H GFR Calculation 38.6 L Glucose 68 L POC Glucose 197 61 Calcium 8.8 Phosphorus 3.4 Magnesium 1.9 Total Bilirubin 0.4 AST 11 ALT 7 Alkaline Phosphata se 133 H Total Protein 7.8 Albumin 2.7 L Globulin 5.1 H Tumor Marker AFP 05/29/19 05/28/19 05/28/19 05:54 21:10 19:56 WBC 7.4 RBC 3.54 L Hgb 8.3 L Hct 29.1 L MCV 82.2 MCH 23.4 L MCHC 28.5 L RDW 19.4 H Plt Count 449 H MPV 7.8 Neut % (Auto) 67.6 Lymph % (Auto) 21.6 [place] % (Auto) 7.0 Eos % (Auto) 2.6 Baso % (Auto) 0.3 Neut # (Auto) 5.0 Lymph # (Auto) 1.6 [place] # (Auto) 0.5 Eos # (Auto) 0.2 Baso # (Auto) 0.0 Nucleated RBC % (a uto) 0 Nucleated RBCs # 0.0 Sodium Potassium Chloride Carbon Dioxide Anion Gap BUN Creatinine GFR Calculation Glucose POC Glucose 133 Calcium Phosphorus Magnesium Total Bilirubin AST ALT Alkaline Phosphata se Total Protein Albumin Globulin Tumor Marker AFP 1.1 05/28/19 16:43 WBC RBC Hgb Hct MCV MCH MCHC RDW Plt Count MPV Neut % (Auto) Lymph % (Auto) [place] % (Auto) Eos % (Auto) Baso % (Auto) Neut # (Auto) Lymph # (Auto) [place] # (Auto) Eos # (Auto) Baso # (Auto) Nucleated RBC % (a uto) Nucleated RBCs # Sodium Potassium Chloride Carbon Dioxide Anion Gap BUN Creatinine GFR Calculation Glucose POC Glucose 138 Calcium Phosphorus Magnesium Total Bilirubin AST ALT Alkaline Phosphata se Total Protein Albumin Globulin Tumor Marker AFP Vitals: Last Vital Signs Temp 98.4 F 05/29/19 12:00 Pulse 79 05/29/19 12:00 Resp 18 05/29/19 12:00 BP 133/82 05/29/19 12:00 Pulse Ox 94 05/29/19 12:00 Discharge Plan Discharge Patient Disposition: Home, Self-Care Condition: Stable Prescriptions: New sucralfate 1 gram Tablet 1 g PO AC&BEDTIME 14 Days Qty: 28 RF: 0 metronidazole 500 mg Tablet 500 mg PO TID 12 Days Qty: 36 RF: 0 ciprofloxacin HCl 500 mg Tablet 500 mg PO BID 12 Days Qty: 24 RF: 0 ferrous sulfate 325 mg (65 mg iron) Tablet,Delayed Release (Dr/Ec) 325 mg PO BIDWM 30 Days Qty: 6 RF: 0 Continued Lantus U-100 Insulin 100 unit/mL Solution 80 unit SUBCUT BID RF: 0 Effexor XR 150 mg Capsule,Extended Release 24hr 150 mg PO DAILY RF: 0 metformin 1,000 mg Tablet Extended Release 24hr 1,000 mg PO BID RF: 0 Changed pantoprazole 40 mg Tablet,Delayed Release (Dr/Ec) 40 mg PO BIDWM 30 Days Qty: 60 RF: 0 Discontinued iron 325 mg (65 mg iron) Tablet 325 mg PO DAILY RF: 0 Discharge Orders: Discharge Order (Routine); Ordered 05/29/19 Ordered By: Baudilio Navarrete Other Ambulatory Orders: Complete Blood Count w/Auto (Routine) Timeframe: 3 Days Location: Determined by Patient Ordered By: Baudilio Navarrete Referrals: Fer Grady MD [Physician] - 1 month Joaquin Natarajan MD [Hospitalist] - 1 month Ruel Corral DO [Primary Care Provider] - Discharge Diet: Advance as tolerated Discharge Activity: Resume usual activity Patient Instructions: Diverticulitis (GEN) Activity Restrictions/Additional Instructions: -For your diverticulitis take antibiotics as prescribed -Please drink plenty of electrolyte balance fluids -If you have recurrent abdominal pain, fevers, nausea please come to the emergency room -For your anemia, follow-up with primary care, continue iron, Protonix, Carafate as prescribed -Please follow-up with general surgery in 1 month for consideration for repeat EGD -For your liver mass please follow-up with oncology in 1 month -For your anemia, hemoglobin discharge was 8.3, recheck hemoglobin in 3 days, follow-up with primary care Discharge Attestations Time Spent in Discharge Care*: greater than 30 min Quality Metrics Clinical Quality Measures During this hospital stay, did patient experience: None Coding Level of Care Code Acute Calibration Engineer for g Fwd Diagnoses Diverticulitis K57.92 Acute kidney insufficiency N28.9 Anemia D64.9 Liver mass R16.0
[2019-05-29 15:13] VITALS: BP 133/82; PULSE 79; RESP 18; TEMP 36.9; O2SAT 94
[2019-05-29 15:35] VITALS: BP 120/71; PULSE 81; RESP 16; TEMP 36.7; O2SAT 95
== END 2019-05-29 15:59 | disposition home or self-care (01) | DRG 392 ==
LOC: ER 23:39 → MEDSURG 05-28 07:44
PROVIDERS: Admitting Provider Internal Medicine; Emergency Provider Emergency Medicine; Family Provider Electrodiagnostic Medicine; PCP Electrodiagnostic Medicine; Visit Provider Family Medicine
DX: K57.92 Diverticulitis of intestine, part unspecified, without perforation or abscess without bleeding (principal); N17.9 Acute kidney failure, unspecified; K56.7 Ileus, unspecified; F41.9 Anxiety disorder, unspecified; K21.9 Gastro-esophageal reflux disease without esophagitis; E86.0 Dehydration; K25.9 Gastric ulcer, unspecified as acute or chronic, without hemorrhage or perforation; E11.9 Type 2 diabetes mellitus without complications; D50.9 Iron deficiency anemia, unspecified; Z90.710 Acquired absence of both cervix and uterus; Z90.49 Acquired absence of other specified parts of digestive tract; R16.0 Hepatomegaly, not elsewhere classified
CPT/HCPCS: 12345; 36415; 36416; 74176; 80053; 81001; 82009; 82105; 82728; 82962; 83540; 83550; 83690; 83735; 84100; 84484; 85025; 87077; 87086; 87186; 93005; 96361; 96365; 96366; 96372; 96374; 96375; 99283; C9113; G0378; J1815; J2270; J2405; J2543; J7030

== ENCOUNTER 2019-06-09 08:02 | Outpatient (CLI) | payer BC, SELFPAY ==
--- NOTE | 2019-06-09 08:21 | CT_ITS ---
WS: [id number] CT ABDOMEN NON-CONTRAST PLUS CONTRAST TECHNIQUE: Noncontrast CT of the abdomen and contrast-enhanced CT of the abdomen with coronal and sag ittal reformatted images. CLINICAL INFORMATION: LIVER MASS COMPARISON: May 27, 2019 DLP: [id number] scans at [facility] use at least one of these dose optimization techniques: automat ed exposure control; mA and/or kV adjustment per patient size (includes targeted exams where dose is matched to clinical indication); or iterative reconstruction. FINDINGS: Again seen is the lobulated low-attenuation lesion in the left hepatic lobe measuring 2.2 x 2.5 cm ad jacent to the falciform ligament. Central stellate enhancement on the arterial phase with persistence on the 5 minute delayed images. Differential considerations include FNH, atypical cavernous hemangio ma, or less likely hepatic adenoma. Recommend 3-6 month follow-up contrast enhanced liver MRI. Lung bases are well aerated. Normal gastroesophageal junction. Normal pancreas. Adrenal glands are no rmal. Normal renal parenchymal enhancement. Upper abdominal aorta is normal. Small disc protrusion L3 -4. CT/CT abdomen wo/w con [id number] IMPRESSION: 1. Again seen is the 2.2 x 2.5 cm low-attenuation lesion left hepatic lobe wit h central stellate enhancement. This persists on the delayed imaging. Different ial considerations include focal nodular hyperplasia, atypical cavernous estella ioma, or less likely hepatic adenoma. Recommend 3-6 month follow-up with gadoli nium enhanced MRI 2. Otherwise no significant changes from the recent examination
[2019-06-09] MEDS: iohexol 300 mg/mL 50 mL Btl PO (08:42)
[2019-06-09] MEDS: iodixanol 320 mg/mL 100mL Btl IV (09:01)
== END 2019-06-09 08:03 | disposition home or self-care (01) ==
LOC: RAD 08:13
PROVIDERS: Family Provider Electrodiagnostic Medicine; PCP Electrodiagnostic Medicine; Visit Provider Electrodiagnostic Medicine
DX: R16.0 Hepatomegaly, not elsewhere classified (principal)
CPT/HCPCS: 74170

== ENCOUNTER 2019-07-08 10:02 | Emergency (ER) | payer BC, SELFPAY ==
[2019-07-08 10:08] VITALS: BP 196/125; PULSE 105; RESP 16; TEMP 36.4; O2SAT 98; BMI 38.7
[2019-07-08 10:57] LABS: Basophils % 0.3 %; Eosinophils # 0.2 10^3/uL (0.0-0.8); Eosinophils % 1.7 %; Hematocrit 36.3 % (37.0-47.0); Hemoglobin 10.8 g/dL (11.5-15.3); Lymphocytes # 2.4 10^3/uL (0.8-4.8); Lymphocytes % 18.4 %; Mean Corpuscular HGB Conc 29.8 g/dL (30.0-36.0); Mean Corpuscular Hemoglobin 24.3 pg (28.0-34.0); Mean Corpuscular Volume 81.8 fL (81-99); Mean Platelet Volume 8.9 fL (7.4-10.4); Monocytes # 0.6 10^3/uL (0.2-0.9); Monocytes % 4.9 %; Neutrophils # 9.5 10^3/uL (1.8-7.7); Neutrophils % 74.4 %; Nucleated Red Blood Cells % 0 %; Platelet Count 328 10^3/cmm (130-400); Red Blood Count 4.44 10^6/uL (4.1-5.3); Red Cell Distribution Width 19.3 % (12.1-15.1); White Blood Count 12.8 10^3/uL (4.0-10.0)
[2019-07-08 11:12] LABS: Alanine Aminotransferase 11 U/L (0-33); Albumin Level 3.8 g/dL (3.5-5.2); Alkaline Phosphatase 127 IU/L (35-105); Anion Gap 18.8 (5-19); Aspartate Amino Transferase 16 U/L (0-32); Blood Urea Nitrogen 10 mg/dL (6-20); Carbon Dioxide 25 mmol/L (22-29); Chloride 100 mmol/L (98-107); Globulin 5.6 g/dL (1.3-4.6); Glomerular Filtration Rate 64.3 mL/min (90-130); Glucose 145 mg/dL (65-115); Lipase 8 U/L (13-60); Potassium 3.8 mmol/L (3.5-5.1); Sodium 140 mmol/L (136-145); Total Bilirubin 0.4 mg/dL (0.15-1.2); Total Protein 9.4 g/dL (6.6-8.7)
--- NOTE | 2019-07-08 11:55 | ED_ITS ---
Entered by Ila Jay, acting as scribe for Jez Lake DO HPI - Abdominal Pain General: Chief Complaint: Abdominal Pain Stated Complaint: ABD PAIN Time Seen by Provider: 07/08/19 11:55 Review of Systems Musc: Denies: joint warmth All/Imm: Denies: acute wheezing PFSH ED PFSH: Social History (Updated 05/27/19 @ 23:33 by Aria Waldrop MD) Smoking and tobacco status: never smoked Alcohol intake: never Lives independently: Yes Household members: spouse Marital status: Course Vital Signs: Vital signs: Vital Signs Temperature 97.6 F 07/08/19 10:08 Pulse Rate 79 07/08/19 13:04 Respiratory Rate 18 07/08/19 13:04 Blood Pressure 155/104 07/08/19 13:04 Pulse Oximetry 98 07/08/19 13:04 MDM - Abdominal Pain Lab Data: Labs: Lab Results 07/08/19 07/08/19 07/08/19 Range/Units 10:40 10:40 12:20 WBC 12.8 H (4.0-10.0) 10^3/ uL RBC 4.44 (4.1-5.3) 10^6/u L Hgb 10.8 L (11.5-15.3) g/dL Hct 36.3 L (37.0-47.0) % MCV 81.8 (81-99) fL MCH 24.3 L (28.0-34.0) pg MCHC 29.8 L (30.0-36.0) g/dL RDW 19.3 H (12.1-15.1) % Plt Count 328 (130-400) 10^3/c mm MPV 8.9 (7.4-10.4) fL Neut % (Auto) 74.4 % Lymph % (Auto) 18.4 % [place] % (Auto) 4.9 % Eos % (Auto) 1.7 % Baso % (Auto) 0.3 % Neut # (Auto) 9.5 H (1.8-7.7) 10^3/u L Lymph # (Auto) 2.4 (0.8-4.8) 10^3/u L [place] # (Auto) 0.6 (0.2-0.9) 10^3/u L Eos # (Auto) 0.2 (0.0-0.8) 10^3/u L Baso # (Auto) 0.0 (0.0-0.1) 10^3/u L Nucleated RBC % (a uto) 0 % Nucleated RBCs # 0.0 /100WBC Sodium 140 (136-145) mmol/L Potassium 3.8 (3.5-5.1) mmol/L Chloride 100 (98-107) mmol/L Carbon Dioxide 25 (22-29) mmol/L Anion Gap 18.8 (5-19) BUN 10 (6-20) mg/dL Creatinine 0.9 (0.5-0.9) mg/dL GFR Calculation 64.3 L (90-130) mL/min Glucose 145 H (65-115) mg/dL Calcium 10.0 (8.5-10.5) mg/dL Total Bilirubin 0.4 (0.15-1.2) mg/dL AST 16 (0-32) U/L ALT 11 (0-33) U/L Alkaline Phosphata se 127 H (35-105) IU/L Total Protein 9.4 H (6.6-8.7) g/dL Albumin 3.8 (3.5-5.2) g/dL Globulin 5.6 H (1.3-4.6) g/dL Lipase 8 L (13-60) U/L Urine Color Yellow (Yellow) Urine Appearance Sl hazy (CLEAR) Urine pH 5 (5-7) Ur Specific Gravit y 1.020 (1.005-1.030) Urine Protein 1+ H (Negative) Urine Glucose (UA) Norm (Normal) Urine Ketones 1+ H (Negative) Urine Blood Neg (Negative) Urine Nitrate Negative (Negative) Urine Bilirubin 1+ H (NEGATIVE) Urine Urobilinogen 1 H (Negative) mg/dL Ur Leukocyte Zarina ase Negative (Negative) Urine RBC 0-4 H (0-2) /hpf Urine WBC 10-15 H (0-5) /hpf Ur Squamous Epith Cells 15-25 H (0-5) Urine Bacteria 1+ H (NONE) Hyaline Casts 0-4 H Urine Mucus 2+ Discharge Plan Discharge Patient Disposition: Home, Self-Care Clinical Impression: Abdominal pain Qualifiers: Abdominal location: left lower quadrant Qualified Code(s): R10.32 - Left lower quadrant pain Condition: Stable Prescriptions: New dicyclomine 20 mg tablet 20 mg PO QID Qty: 20 RF: 0 No Action Lantus U-100 Insulin 100 unit/mL Solution 80 unit SUBCUT BID RF: 0 venlafaxine [Effexor XR] 150 mg Capsule,Extended Release 24hr 150 mg PO DAILY RF: 0 metformin 1,000 mg Tablet Extended Release 24hr 1,000 mg PO BID RF: 0 omeprazole 40 mg Capsule,Delayed Release(Dr/Ec) 40 mg PO DAILY RF: 0 iron 325 mg (65 mg iron) Tablet 325 mg PO DAILY RF: 0 ibuprofen 400 mg Tablet 400 mg PO Q6H PRN (Reason: Pain) RF: 0 Basaglar KwikPen U-100 Insulin 100 unit/mL (3 mL) Insulin Pen See Rx Instructions .ROUTE .COMPLEX RF: 0 Discharge Orders: Discharge Order (Routine); Ordered 07/08/19 Ordered By: Jez Lake Referrals: Ruel Corral DO [Primary Care Provider] - Patient Instructions: Cholecystitis (ED), Abdominal Pain (ED) Coding Level of Care Code ED Manager Validation for Chg Fwd The documentation recorded by the Pierre iqbal Bridget Annette, accurately reflects the service I personally performed and the decisions made by Aleksandra silva Donald P, DO Jul 08, 2019 10:02
--- NOTE | 2019-07-08 12:19 | CT_ITS ---
WS: [id number] CT scan of the abdomen and pelvis with IV contrast. Additional two-dimensional coronal and sagittal r econstruction was performed. 07/08/2019 Clinical Data: diverticulitis Comparison: CT abdomen and pelvis, 06/09/2019. DLP: 1781.[address] scans at [facility] use at least one of these dose optimization techniques: automat ed exposure control; mA and/or kV adjustment per patient size (includes targeted exams where dose is matched to clinical indication); or iterative reconstruction. Findings: The lower lungs show no nodules, masses or effusions. The gallbladder, spleen, adrenal glands and pancreas are normal. The low-attenuation changes in the l eft lobe of liver again are seen. This could also represent focal fat. No change has occurred since t he last examination. The kidneys show equal bilateral contrast excretion with no cyst or masses. The abdominal aorta is normal in size. No appendicitis or diverticulitis is seen. The stomach, small bowel and colon again show only sigmoid diverticula. The bladder is unremarkable. The uterus is absent. No inguinal hernia is seen. 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 L3 and L4 with disc space narrowing and then disc space narrowing at L5-S1.. CT/CT abdomen pelvis w con* [id number] Impression: 1. Numerous sigmoid diverticula but no diverticulitis is seen. 2. Low-density lesion in the left lobe of the liver unchanged.
[2019-07-08 13:04] VITALS: BP 155/104; PULSE 79; RESP 18; O2SAT 98
[2019-07-08 13:30] LABS: Add Urine Microscopic? YES; Bilirubin Urine 1+ (NEGATIVE); Blood Urine Neg (Negative); Glucose Urine UA Norm (Normal); Ketones Urine 1+ (Negative); Leukocyte Esterase Urine Negative (Negative); Nitrate Urine Negative (Negative); Protein Urine 1+ (Negative); Urine Appearance SL Hazy (CLEAR); Urine Color Yellow (Yellow); Urobilinogen Urine 1 mg/dL (Negative); pH Urine 5 (5-7)
[2019-07-08 13:44] LABS: RBC Urine 0-4 /hpf (0-2)
[2019-07-08 13:45] LABS: Bacteria Urine 1+; Mucus Urine 2+; Squamous Epithelial Cell Urine 15-25 (0-5)
[2019-07-08 13:46] LABS: Hyaline Casts Urine 0-4
[2019-07-08 13:47] LABS: Add Urine Culture? No
[2019-07-08] MEDS: iohexol 300 mg/mL 100 mL Btl 95 ML IV (13:57)
[2019-07-08 15:35] VITALS: BP 146/64; PULSE 86; RESP 18; O2SAT 96
== END 2019-07-08 15:35 | disposition home or self-care (01) ==
PROVIDERS: Nurse Practitioner Family; Emergency Provider Family Medicine; Family Provider Electrodiagnostic Medicine; PCP Electrodiagnostic Medicine
DX: R10.9 Unspecified abdominal pain (principal)
CPT/HCPCS: 36415; 74177; 80053; 81001; 83690; 85025; 99282; 99283; Q9967

== ENCOUNTER 2020-03-10 12:05 | Emergency (ER) | payer BC, SELFPAY ==
[2020-03-10 12:15] VITALS: BP 177/146; PULSE 91; RESP 20; TEMP 36.2; O2SAT 97; BMI 42.4
--- NOTE | 2020-03-10 12:24 | XR_ITS ---
WS: [id number] XR chest 1V portable [id number] REASON FOR EXAM: COVID r/o FINDINGS: Mediastinum is somewhat prominent which is likely due to excess mediastinal fat and moderate tortuosi ty of the thoracic aorta. The heart size is normal. No active pulmonary parenchymal pleural disease is noted. The bony thorax is intact. XR/XR chest 1V portable [id number] IMPRESSION: No acute chest abnormality.
--- NOTE | 2020-03-10 12:49 | W.ED.COVID ---
HPI - COVID General: Chief Complaint: COVID symptoms Stated Complaint: SOB, MUSCLE ACHES, DIARRHEA, FEVER Time Seen by Provider: 03/10/20 12:16 Triage information: Has fever, cough or shortness of breath. Exposure to COVID + person last 14 days History of Present Illness: HPI Narrative: This patient is a 59-year-old female who presents today with concerns for Covid. She started having symptoms on Sunday which include body aches, fever, shortness of breath, cough, sore throat, headache, decreased taste and smell. She denies nausea vomiting or diarrhea. She has had 3 potential exposures over the past week. 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 She cannot tell me exactly when the exposures were. She has not been tested. She has a history of diabetes controlled with pills and insulin. She is obese. She denies any history of heart or lung problems. MD complaint: reported COVID exposure and has COVID symptoms Prior covid testing: no COVID 19 common symptoms: positive fever(s), chills, cough, non-productive cough, dyspnea, fatigue, body aches, headache(s), loss of sense of smell and/or taste, throat pain and nasal congestion; negative nausea or vomiting COVID 19 other sytmptoms: negative chest pain Onset (ago): day(s) (4) Severity: moderate Pertinent comorbid conditions: diabetes and obesity Treatment prior to arrival: none COVID Results: SARS-CoV-2 Antigen (Rapid) Negative (Negative) 03/10/20 12:58 03/10/20 Review of Systems General: Reports: 10 or more systems reviewed and unremarkable except in HPI and below Const: Reports: fever(s), chills, body aches and fatigue Eyes: Denies: change in vision ENMT: Reports: throat pain and nasal congestion Card: Denies: chest pain or swelling of feet/ankles Resp: Reports: dyspnea and non-productive cough GI: Denies: abdominal pain, nausea or vomiting : Denies: flank pain or difficulty voiding Musc: Denies: neck pain or back pain Skin/Breast: Denies: rash Neuro: Reports: headache(s) Zaheer/Lymph: Denies: easy bruising or easy bleeding PFS ED PFSH: Medical History Anxiety Chronic GERD Gastric ulcer HX: benign breast biopsy Insulin dependent diabetes mellitus Iron deficiency anemia Normal colonoscopy Type 2 diabetes mellitus Surgical History H/O arthroscopic knee surgery H/O discectomy History of esophagogastroduodenoscopy (EGD) History of hysterectomy History of tubal ligation Hx of cholecystectomy Family History Father CAD (coronary artery disease) Mother CAD (coronary artery disease) Social History Smoking and tobacco status: never smoked Alcohol intake: never Lives independently: Yes Household members: spouse Marital status: Physical Exam Const: COMMON NORMALS: patient oriented x3, no limitations and alert GENERAL APPEARANCE: cooperative HENMT: HEAD & SCALP: normal to inspection FACE & SINUS: normal facial exam Eye: GENERAL EYE: appearance normal, both eyes and all related structures Neck/C-Spine: COMMON NORMALS: supple, no meningeal signs and no JVD Chest: COMMONS NORMALS: normal inspection of the chest Resp: COMMON NORMALS: normal respiratory effort and No use of accessory muscles EFFORT & INSPECTION: Yes decreased respiratory effort Cardio: COMMON NORMALS: no JVD, regular rate, regular rhythm and No murmurs present (Cardio) RATE: regular rate RHYTHM: regular rhythm GI: COMMON NORMALS: Normal to inspection, nondistended, normoactive bowel sounds present, Soft to palpation and non-tender INSPECTION: Yes normal to inspection AUSCULTATION: Yes normoactive bowel sounds PALPATION: Yes Soft to palpation Back/Pelvis: COMMON NORMALS: thoracic and lumbar spine normal to inspection Extremity: COMMON NORMALS: normal to inspection Neuro: COMMON NORMALS: patient oriented x3, moves all extremities, no focal motor deficits and no sensory deficits noted SENSORIUM/ORIENTATION: Yes alert MENINGEAL SIGNS: Yes no meningeal signs Psych: COMMON NORMALS: mental status grossly normal, cooperative and normal affect Skin: COMMON NORMALS: no rashes or lesions noted and turgor normal GENERAL SKIN EXAM: no rashes or lesions noted and turgor normal Course ED course: Patient presents with multiple complaints which could be related to Covid infection. She says she has had 3 exposures over the past week or 2. She has been having malaise. Sats are excellent in the ER. Her work-up is quite benign with no significant changes in inflammatory markers. After some fluid and rest she said she did feel better. We discussed that even though everything looks good today she needs to return if she is feeling worse in any way. What ever is causing her symptoms is still likely contagious and I put her off work until she is symptom-free for 24 hours. Vital Signs: Vital signs: Vital Signs Temperature 97.2 F L 03/10/20 12:15 Pulse Rate 86 03/10/20 16:28 Respiratory Rate 21 H 03/10/20 16:28 Blood Pressure 132/75 03/10/20 16:28 Pulse Oximetry 96 03/10/20 16:28 MDM - COVID Lab Data Result diagrams: 03/10/20 12:58 03/10/20 12:58 Labs: Lab Results 03/10/20 03/10/20 03/10/20 Range/Units 12:58 12:58 12:58 WBC 10.0 (4.0-10.0) 10^3/uL RBC 4.80 (4.1-5.3) 10^6/uL Hgb 11.6 (11.5-15.3) g/dL Hct 39.6 (37.0-47.0) % MCV 82.5 (81-99) fL MCH 24.2 L (28.0-34.0) pg MCHC 29.3 L (30.0-36.0) g/dL RDW 16.4 H (12.1-15.1) % Plt Count 381 (130-400) 10^3/cmm MPV 8.9 (7.4-10.4) fL Neut % (Auto) 73.7 % Lymph % (Auto) 17.5 % Routt % (Auto) 5.5 % Eos % (Auto) 2.2 % Baso % (Auto) 0.8 % Neut # (Auto) 7.35 (1.8-7.7) 10^3/uL Lymph # (Auto) 1.8 (0.8-4.8) 10^3/uL Routt # (Auto) 0.6 (0.2-0.9) 10^3/uL Eos # (Auto) 0.2 (0.0-0.8) 10^3/uL Baso # (Auto) 0.1 (0.0-0.1) 10^3/uL Nucleated RBC % (auto) 0 % Nucleated RBCs # 0.0 /100WBC Fibrinogen 494 (174-498) mg/dL D-Dimer 0.41 (0-0.59) ug/mIFEU Sodium 137 (136-145) mmol/L Potassium 4.5 (3.5-5.1) mmol/L Chloride 100 (98-107) mmol/L Carbon Dioxide 24 (22-29) mmol/L Anion Gap 17.5 (5-19) BUN 18 (6-20) mg/dL Creatinine 1.0 H (0.5-0.9) mg/dL GFR Calculation 56.7 L (90-130) mL/min Glucose 208 H (65-115) mg/dL Calculated Osmolality 292 (285-295) mOsm/kg Lactic Acid (0.5-2.2) mmol/L Lactic Acid (Sepsis) (0.5-2.2) mmol/L Calcium 9.4 (8.5-10.5) mg/dL Ferritin 25 (15-150) ng/mL Total Bilirubin 0.4 (0.15-1.2) mg/dL AST 17 (0-32) U/L ALT 14 (0-33) U/L Alkaline Phosphatase 139 H (35-105) IU/L Troponin T Baseline (0-10) ng/L Troponin T 120 Minute (0-10) ng/L Delta Troponin T (0-10) ABS# C-Reactive Protein 22.8 H (0.0-4.9) mg/L NT-Pro-B Natriuret Pep 31 (0-125) pg/mL Total Protein 8.1 (6.6-8.7) g/dL Albumin 3.9 (3.5-5.2) g/dL Globulin 4.2 (1.3-4.6) g/dL Procalcitonin 0.07 (0-0.5) ng/mL Influenza Type A Ag (Negative) Influenza Type B Ag (Negative) SARS-CoV-2 Ag (Rapid) (Negative) 03/10/20 03/10/20 03/10/20 Range/Units 12:58 12:58 12:58 WBC (4.0-10.0) 10^3/uL RBC (4.1-5.3) 10^6/uL Hgb (11.5-15.3) g/dL Hct (37.0-47.0) % MCV (81-99) fL MCH (28.0-34.0) pg MCHC (30.0-36.0) g/dL RDW (12.1-15.1) % Plt Count (130-400) 10^3/cmm MPV (7.4-10.4) fL Neut % (Auto) % Lymph % (Auto) % Routt % (Auto) % Eos % (Auto) % Baso % (Auto) % Neut # (Auto) (1.8-7.7) 10^3/uL Lymph # (Auto) (0.8-4.8) 10^3/uL Routt # (Auto) (0.2-0.9) 10^3/uL Eos # (Auto) (0.0-0.8) 10^3/uL Baso # (Auto) (0.0-0.1) 10^3/uL Nucleated RBC % (auto) % Nucleated RBCs # /100WBC Fibrinogen (174-498) mg/dL D-Dimer (0-0.59) ug/mIFEU Sodium (136-145) mmol/L Potassium (3.5-5.1) mmol/L Chloride (98-107) mmol/L Carbon Dioxide (22-29) mmol/L Anion Gap (5-19) BUN (6-20) mg/dL Creatinine (0.5-0.9) mg/dL GFR Calculation (90-130) mL/min Glucose (65-115) mg/dL Calculated Osmolality (285-295) mOsm/kg Lactic Acid 2.3 H (0.5-2.2) mmol/L Lactic Acid (Sepsis) (0.5-2.2) mmol/L Calcium (8.5-10.5) mg/dL Ferritin (15-150) ng/mL Total Bilirubin (0.15-1.2) mg/dL AST (0-32) U/L ALT (0-33) U/L Alkaline Phosphatase (35-105) IU/L Troponin T Baseline 15 H (0-10) ng/L Troponin T 120 Minute (0-10) ng/L Delta Troponin T (0-10) ABS# C-Reactive Protein (0.0-4.9) mg/L NT-Pro-B Natriuret Pep (0-125) pg/mL Total Protein (6.6-8.7) g/dL Albumin (3.5-5.2) g/dL Globulin (1.3-4.6) g/dL Procalcitonin (0-0.5) ng/mL Influenza Type A Ag Negative (Negative) Influenza Type B Ag Negative (Negative) SARS-CoV-2 Ag (Rapid) (Negative) 03/10/20 03/10/20 03/10/20 Range/Units 12:58 14:45 15:31 WBC (4.0-10.0) 10^3/uL RBC (4.1-5.3) 10^6/uL Hgb (11.5-15.3) g/dL Hct (37.0-47.0) % MCV (81-99) fL MCH (28.0-34.0) pg MCHC (30.0-36.0) g/dL RDW (12.1-15.1) % Plt Count (130-400) 10^3/cmm MPV (7.4-10.4) fL Neut % (Auto) % Lymph % (Auto) % Routt % (Auto) % Eos % (Auto) % Baso % (Auto) % Neut # (Auto) (1.8-7.7) 10^3/uL Lymph # (Auto) (0.8-4.8) 10^3/uL Routt # (Auto) (0.2-0.9) 10^3/uL Eos # (Auto) (0.0-0.8) 10^3/uL Baso # (Auto) (0.0-0.1) 10^3/uL Nucleated RBC % (auto) % Nucleated RBCs # /100WBC Fibrinogen (174-498) mg/dL D-Dimer (0-0.59) ug/mIFEU Sodium (136-145) mmol/L Potassium (3.5-5.1) mmol/L Chloride (98-107) mmol/L Carbon Dioxide (22-29) mmol/L Anion Gap (5-19) BUN (6-20) mg/dL Creatinine (0.5-0.9) mg/dL GFR Calculation (90-130) mL/min Glucose (65-115) mg/dL Calculated Osmolality (285-295) mOsm/kg Lactic Acid (0.5-2.2) mmol/L Lactic Acid (Sepsis) 1.8 (0.5-2.2) mmol/L Calcium (8.5-10.5) mg/dL Ferritin (15-150) ng/mL Total Bilirubin (0.15-1.2) mg/dL AST (0-32) U/L ALT (0-33) U/L Alkaline Phosphatase (35-105) IU/L Troponin T Baseline (0-10) ng/L Troponin T 120 Minute 15.04 H (0-10) ng/L Delta Troponin T 0.04 (0-10) ABS# C-Reactive Protein (0.0-4.9) mg/L NT-Pro-B Natriuret Pep (0-125) pg/mL Total Protein (6.6-8.7) g/dL Albumin (3.5-5.2) g/dL Globulin (1.3-4.6) g/dL Procalcitonin (0-0.5) ng/mL Influenza Type A Ag (Negative) Influenza Type B Ag (Negative) SARS-CoV-2 Ag (Rapid) Negative (Negative) COVID Results: SARS-CoV-2 Antigen (Rapid) Negative (Negative) 03/10/20 12:58 03/10/20 Discharge Plan Discharge Patient Disposition: Home Clinical Impression: Acute viral syndrome, Exposure to severe acute respiratory syndrome coronavirus 2 (SARS-CoV-2) Condition: Stable Prescriptions: No Action Tylenol Extra Strength 500 mg Tablet 1,000 mg PO PRN RF: 0 metformin 1,000 mg tablet 1,000 mg PO BID RF: 0 duloxetine 60 mg capsule,delayed release(DR/EC) 60 mg PO DAILY RF: 0 omeprazole 40 mg Capsule,Delayed Release(Dr/Ec) 40 mg PO DAILY RF: 0 ferrous sulfate [iron] 325 mg (65 mg iron) Tablet 325 mg PO DAILY RF: 0 Basaglar KwikPen U-100 Insulin 100 unit/mL (3 mL) Insulin Pen 80 unit SUBCUT BID RF: 0 Discharge Orders: Discharge Order (Routine); Ordered 03/10/20 Ordered By: Tiana Lo Referrals: Ruel Corral, [Primary Care Provider] - Discharge Diet: Usual diet Discharge Activity: Resume usual activity Patient Instructions: Viral Syndrome (ED) Stand Alone Forms: Work/School Release Discharge Date/Time: 03/10/20 16:29 Coding Level of Care Code ED Transit Planning Director for Chg Fwd Exam Comprehensive
--- NOTE | 2020-03-10 13:02 | ECG_ITS ---
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 Measurements Intervals [place] Rate: 79 P: -33 NV: 108 QRS: 9 QRSD: 88 T: 67 QT: 353 QTc: 405 Interpretive Statements SINUS RHYTHM WITH SHORT NV INTERVAL NONSPECIFIC T-WAVE ABNORMALITY Compared to ECG 05/27/2019 21:31:43 Short NV interval now present T-wave abnormality still present Electronically Signed On 03-10-2020 18:59:05 COLOR TELEVISION CONSOLE MONITOR by Nuzhat Carter M.D. [id number]
[2020-03-10 13:12] LABS: Basophils # 0.1 10^3/uL (0.0-0.1); Basophils % 0.8 %; Eosinophils # 0.2 10^3/uL (0.0-0.8); Eosinophils % 2.2 %; Hematocrit 39.6 % (37.0-47.0); Hemoglobin 11.6 g/dL (11.5-15.3); Lymphocytes # 1.8 10^3/uL (0.8-4.8); Lymphocytes % 17.5 %; Mean Corpuscular HGB Conc 29.3 g/dL (30.0-36.0); Mean Corpuscular Hemoglobin 24.2 pg (28.0-34.0); Mean Corpuscular Volume 82.5 fL (81-99); Mean Platelet Volume 8.9 fL (7.4-10.4); Monocytes # 0.6 10^3/uL (0.2-0.9); Monocytes % 5.5 %; Neutrophils # 7.35 10^3/uL (1.8-7.7); Neutrophils % 73.7 %; Nucleated Red Blood Cells % 0 %; Platelet Count 381 10^3/cmm (130-400); Red Cell Distribution Width 16.4 % (12.1-15.1)
[2020-03-10 13:34] LABS: SARS Covid-2 Antigen Negative (Negative)
[2020-03-10 13:35] LABS: Influenza A by IFA Negative (Negative); Influenza B by IFA Negative (Negative)
[2020-03-10 13:40] LABS: Lactic Sepsis W/Reflex 2.3 mmol/L (0.5-2.2)
[2020-03-10 13:43] LABS: Fibrinogen 494 mg/dL (174-498)
[2020-03-10 13:45] LABS: D Dimer 0.41 ug/mIFEU (0-0.59)
[2020-03-10 13:51] LABS: NT Pro B Type Natriuretic Pept 31 pg/mL (0-125); Procalcitonin 0.07 ng/mL (0-0.5)
[2020-03-10 14:02] LABS: Alanine Aminotransferase 14 U/L (0-33); Albumin Level 3.9 g/dL (3.5-5.2); Alkaline Phosphatase 139 IU/L (35-105); Anion Gap 17.5 (5-19); Aspartate Amino Transferase 17 U/L (0-32); Blood Urea Nitrogen 18 mg/dL (6-20); C Reactive Protein 22.8 mg/L (0.0-4.9); Calcium 9.4 mg/dL (8.5-10.5); Carbon Dioxide 24 mmol/L (22-29); Chloride 100 mmol/L (98-107); Ferritin 25 ng/mL (15-150); Globulin 4.2 g/dL (1.3-4.6); Glomerular Filtration Rate 56.7 mL/min (90-130); Glucose 208 mg/dL (65-115); Osmolality Calculated 292 mOsm/kg (285-295); Potassium 4.5 mmol/L (3.5-5.1); Sodium 137 mmol/L (136-145); Total Bilirubin 0.4 mg/dL (0.15-1.2); Total Protein 8.1 g/dL (6.6-8.7)
[2020-03-10 14:29] LABS: Troponin(5th) Baseline 15 ng/L (0-10)
[2020-03-10 14:53] VITALS: BP 122/83; PULSE 73; RESP 20; O2SAT 96
[2020-03-10 14:57] LABS: Reflex Lactate Order REFLEX LACTIC ORDERD
--- NOTE | 2020-03-10 15:02 | ECG_ITS ---
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 Measurements Intervals [place] Rate: 79 P: -8 OH: 141 QRS: 19 QRSD: 89 T: 76 QT: 316 QTc: 364 Interpretive Statements SINUS RHYTHM NONSPECIFIC T-WAVE ABNORMALITY Compared to ECG 03/10/2020 13:17:32 Short OH interval no longer present T-wave abnormality still present Electronically Signed On 03-10-2020 19:29:30 ROLL EXAMINER by Nuzhat Carter M.D. [email or web address]
[2020-03-10 15:16] LABS: Troponin 5 2HR 15.04 ng/L (0-10); Troponin 5 2HR Delta 0.04 ABS# (0-10)
[2020-03-10 16:00] LABS: Lactic Acid level (Lactate) 1.8 mmol/L (0.5-2.2)
[2020-03-10 16:28] VITALS: BP 132/75; PULSE 86; RESP 21; O2SAT 96
== END 2020-03-10 16:29 | disposition home or self-care (01) ==
PROVIDERS: Emergency Provider Emergency Medicine; PCP Electrodiagnostic Medicine
DX: B34.9 Viral infection, unspecified (principal); Z20.828 Contact with and (suspected) exposure to other viral communicable diseases; Z79.4 Long term (current) use of insulin; E11.9 Type 2 diabetes mellitus without complications
CPT/HCPCS: 12345; 71045; 80053; 82728; 83605; 83880; 84145; 84484; 85025; 85378; 85384; 86140; 87426; 87804; 93005; 99283; 99284

== ENCOUNTER → 2021-02-15 13:16 | Outpatient (BNVA) | payer BC, SELFPAY | PROVIDERS: PCP Electrodiagnostic Medicine; Referring Provider Electrodiagnostic Medicine; Visit Provider Internal Medicine | DX: E11.22 Type 2 diabetes mellitus with diabetic chronic kidney disease (principal); N18.31 Chronic kidney disease, stage 3a; R53.83 Other fatigue; Z79.4 Long term (current) use of insulin | CPT/HCPCS: 99204 ==

== ENCOUNTER 2021-02-15 14:48 | Outpatient (CLI) | payer BC, SELFPAY ==
[2021-02-15 16:18] LABS: Thyroid Stimulating Hormone 2.82 uIU/mL (0.27-4.20)
[2021-02-15 17:00] LABS: Free T4 Free Thyroxine 0.97 ng/dL (0.82-1.77)
== END 2021-02-15 14:49 | disposition home or self-care (01) ==
LOC: LAB 14:56
PROVIDERS: Visit Provider Internal Medicine
DX: E11.9 Type 2 diabetes mellitus without complications (principal)
CPT/HCPCS: 36415; 84439; 84443

== ENCOUNTER → 2021-03-02 14:45 | Outpatient (BNVA) | payer BC, SELFPAY | PROVIDERS: Visit Provider Internal Medicine | DX: R53.83 Other fatigue (principal); E11.22 Type 2 diabetes mellitus with diabetic chronic kidney disease; N18.31 Chronic kidney disease, stage 3a; Z79.4 Long term (current) use of insulin | CPT/HCPCS: 99213; 99214 ==

== ENCOUNTER → 2021-03-17 08:49 | Outpatient (BNVA) | payer BC, SELFPAY | PROVIDERS: Visit Provider Internal Medicine | DX: E11.22 Type 2 diabetes mellitus with diabetic chronic kidney disease (principal); N18.30 Chronic kidney disease, stage 3 unspecified; R53.83 Other fatigue; T78.40XA Allergy, unspecified, initial encounter; Z79.4 Long term (current) use of insulin; Z79.84 Long term (current) use of oral hypoglycemic drugs | CPT/HCPCS: 99214 ==

== ENCOUNTER → 2021-05-12 10:47 | Outpatient (BNVA) | payer BC, SELFPAY | PROVIDERS: Visit Provider Nurse Practitioner Family | DX: Z20.822 Contact with and (suspected) exposure to COVID-19 (principal) | CPT/HCPCS: 87635 ==

== ENCOUNTER → 2021-05-16 15:10 | Outpatient (BNVA) | payer BC, SELFPAY | PROVIDERS: Visit Provider Registered Nurse Neonatal Intensive Care | DX: Z20.822 Contact with and (suspected) exposure to COVID-19 (principal) | CPT/HCPCS: 87635 ==

== ENCOUNTER → 2021-05-17 06:02 | Outpatient (BNVA) | payer BC, SELFPAY | PROVIDERS: Visit Provider Registered Nurse Neonatal Intensive Care | DX: Z20.822 Contact with and (suspected) exposure to COVID-19 (principal); H66.91 Otitis media, unspecified, right ear | CPT/HCPCS: 87801 ==

== ENCOUNTER 2021-05-18 11:57 | Outpatient (CLI) | payer BC, SELFPAY ==
--- NOTE | 2021-05-18 12:06 | XR_ITS ---
WS: [id number] PROCEDURE: XR chest 2V* [id number] CLINICAL INFORMATION: SOB/Wheezing COMPARISON: March 20, 2020 FINDINGS: Heart: Cardiomegaly. Tortuous thoracic aorta. Lungs: Hyperinflation. Mild chronic emphysematous changes. No acute pulmonary infiltrates. Segmental elevation right hemidiaphragm unchanged. Bones: Mild thoracic curve. XR/XR chest 2V* [id number] IMPRESSION: 1. Stable cardiomegaly and tortuous thoracic aorta. 2. Hyperinflation. No acute pulmonary infiltrates. 3. No acute chest findings.
== END 2021-05-18 11:58 | disposition home or self-care (01) ==
LOC: RAD 12:00
PROVIDERS: PCP Nurse Practitioner Family; Visit Provider Nurse Practitioner Family
DX: R06.02 Shortness of breath (principal); R06.2 Wheezing; I51.7 Cardiomegaly; Q25.46 Tortuous aortic arch
CPT/HCPCS: 71046

== ENCOUNTER 2021-05-24 11:29 | Outpatient (CLI) | payer BC, SELFPAY ==
[2021-05-24 12:39] LABS: Chol HDL Ratio 4.09 mg/dL (0.0-4.40); Cholesterol 188 mg/dL (0-200); HDL Cholesterol 46 mg/dL (60-100); LDL Cholesterol Calculated 114 mg/dL (50-129); LDL HDL Ratio 2.48 RATIO (0.00-3.22); Triglycerides 140 mg/dL (0-150)
[2021-05-24 13:10] LABS: Estmated Average Glucose 189; Hemoglobin A1C 8.2 % (4.0-6.0)
== END 2021-05-24 11:30 | disposition home or self-care (01) ==
PROVIDERS: PCP Nurse Practitioner Family; Visit Provider Internal Medicine
DX: E11.22 Type 2 diabetes mellitus with diabetic chronic kidney disease (principal); N18.30 Chronic kidney disease, stage 3 unspecified; R53.83 Other fatigue
CPT/HCPCS: 80061; 83036

== ENCOUNTER 2021-08-01 06:29 | Outpatient (CLI) | payer BC, SELFPAY ==
[2021-08-01 11:19] LABS: Estmated Average Glucose 206; Hemoglobin A1C 8.8 % (4.0-6.0)
[2021-08-01 11:29] LABS: Chol HDL Ratio 3.46 mg/dL (0.0-4.40); Cholesterol 180 mg/dL (0-200); HDL Cholesterol 52 mg/dL (60-100); LDL Cholesterol Calculated 96 mg/dL (50-129); LDL HDL Ratio 1.85 RATIO (0.00-3.22); Triglycerides 161 mg/dL (0-150)
== END 2021-08-01 06:30 | disposition home or self-care (01) ==
LOC: LAB 06:31
PROVIDERS: PCP Nurse Practitioner Family; Visit Provider Internal Medicine
DX: E11.65 Type 2 diabetes mellitus with hyperglycemia (principal); E78.2 Mixed hyperlipidemia
CPT/HCPCS: 80061; 83036

== ENCOUNTER → 2021-08-16 16:02 | Outpatient (BNVA) | payer BC, SELFPAY | PROVIDERS: PCP Nurse Practitioner Family; Visit Provider Internal Medicine | DX: E11.22 Type 2 diabetes mellitus with diabetic chronic kidney disease (principal); N18.30 Chronic kidney disease, stage 3 unspecified; E11.65 Type 2 diabetes mellitus with hyperglycemia | CPT/HCPCS: 80053 ==

== ENCOUNTER 2021-11-01 04:55 | Emergency (ER) | payer BC, SELFPAY ==
--- NOTE | 2021-11-01 05:05 | XRR_ITS ---
PROCEDURE INFORMATION: Exam: XR Chest Exam date and time: 11/01/2021 5:18 AM Age: 61 years old Clinical indication: Pain; Shortness of breath; Chest pressure; Prior surgery; Surgery type: Gb; Patient HX: C/O chest discomfort with SOB. ; Additional info: Cp TECHNIQUE: Imaging protocol: Radiologic exam of the chest. Views: 1 view. COMPARISON: CR XR chest 2V* [id number] 05/18/2021 12:15 PM FINDINGS: Lungs: Unremarkable. No consolidation. Pleural spaces: Unremarkable. No pleural effusion. No pneumothorax. Heart/Mediastinum: Unremarkable. No cardiomegaly. Bones/joints: Unremarkable. XR/XR chest 1V portable [id number] IMPRESSION: No acute findings.
--- NOTE | 2021-11-01 05:05 | ECG_ITS ---
[facility] Test Date: 2021-11-01 Pat Name: Nona Sevilla Department: Room: Gender: Female Proposition Player: : 1960 Requested By: Izaiah Hodges Order Number: [id number] Nancy MD: Lubna Koenig M.D. Measurements Intervals [place] Rate: 71 P: -9 NE: 97 QRS: 20 QRSD: 96 T: 46 QT: 373 QTc: 406 Interpretive Statements SINUS RHYTHM WITH SHORT NE INTERVAL Compared to ECG 03/10/2020 15:29:59 Short NE interval now present T-wave abnormality no longer present Electronically Signed On 11-01-2021 20:05:20 CDT by Lubna Koenig M.D. [id number]
--- NOTE | 2021-11-01 05:06 | ED_ITS ---
Documented by User: Izaiah Hodges MD 11/01/21 18:59 HPI - Chest Pain General: Chief Complaint: Chest Pain Stated Complaint: blood sugar issues Time Seen by Provider: 11/01/21 04:58 Source: patient Mode of arrival: ambulatory Limitations: no limitations History of Present Illness: 61-year-old female who states that she has been having chest pain or shortness of breath and blood glucose issues over the last day to 2 days. States she actually having chest pain since midnight she states that her blood sugars been going up and down actually for days but has had this pressure type pain in her chest since midnight. States she has been getting injections in her left eye due to a blood vessel that it burst by Dr. Mir. Patient is a diabetic. Patient's blood sugar here is 155. States she has had mild pain currently rates her pain a 2 out of 10. Denies any cough or fever. Associated symptoms: Reports dyspnea; Deny abdominal pain, fever(s), nausea or vomiting Review of Systems Const: Denies: fever(s), chills, body aches or change in appetite Eyes: Denies: blurry vision or eye discomfort ENMT: Denies: throat pain or dental pain Card: Reports: chest pain Resp: Reports: dyspnea GI: Denies: abdominal pain, nausea, vomiting or diarrhea : Denies: dysuria Musc: Denies: neck pain or back pain Skin/Breast: Denies: rash Neuro: Denies: headache(s) Psych: Denies: depression Zaheer/Lymph: Denies: easy bruising All/Imm: Denies: urticaria PFSH ED PFSH: Medical History Anxiety Chronic GERD Gastric ulcer HX: benign breast biopsy Insulin dependent diabetes mellitus Iron deficiency anemia Normal colonoscopy Type 2 diabetes mellitus Surgical History H/O arthroscopic knee surgery H/O discectomy History of esophagogastroduodenoscopy (EGD) History of hysterectomy History of tubal ligation Hx of cholecystectomy Family History Father CAD (coronary artery disease) Mother CAD (coronary artery disease) Social History Smoking and tobacco status: never smoked Alcohol intake: never Lives independently: Yes Household members: spouse Marital status: Physical Exam Const: COMMON NORMALS: no acute distress, patient oriented x3 and healthy appearing HENMT: COMMON NORMALS: normocephalic and atraumatic HEAD & SCALP: normocephalic and atraumatic Eye: COMMON NORMALS: Equal, round and reactive pupils present and EOMs intact bilaterally PUPIL: Yes Equal, round and reactive pupils present Neck/C-Spine: COMMON NORMALS: full ROM and supple Chest: COMMONS NORMALS: normal inspection of the chest and normal palpation of entire chest wall Resp: COMMON NORMALS: normal respiratory effort, No retractions, No use of accessory muscles and clear to auscultation bilaterally AUSCULTATION: clear to auscultation bilaterally Cardio: COMMON NORMALS: regular rate, regular rhythm and No murmurs present (Cardio) RATE: regular rate RHYTHM: regular rhythm GI: COMMON NORMALS: Normal to inspection, nondistended, normoactive bowel sounds present, Soft to palpation, non-tender and no masses PALPATION: Yes Soft to palpation Extremity: COMMON NORMALS: normal to inspection and full ROM Neuro: COMMON NORMALS: patient oriented x3, moves all extremities and no focal motor deficits Psych: COMMON NORMALS: mental status grossly normal, Normal thought process present and cooperative THOUGHT PROCESS: Normal thought process present Skin: COMMON NORMALS: no rashes or lesions noted and no wounds GENERAL SKIN EXAM: no rashes or lesions noted Course Vital Signs: Vital signs: Vital Signs Temperature 98.0 F 11/01/21 05:08 Pulse Rate 68 11/01/21 08:25 Respiratory Rate 18 11/01/21 08:25 Blood Pressure 142/81 11/01/21 08:25 Pulse Oximetry 96 11/01/21 08:25 MDM - Chest Pain Medical Decision Making Patient presents here with atypical chest pain blood sugar issues her initial blood sugar here is normal patient is awaiting 2-hour troponin patient care turned over to Dr. Pearson at this time. Lab Data : 11/01/21 05:20 11/01/21 05:20 Radiology Impressions Chest X-Ray 11/01/21 05:05 IMPRESSION: No acute findings. Laboratory Results WBC 9.3 10^3/uL (4.0-10.0) 11/01/21 05:20 RBC 4.32 10^6/uL (4.1-5.3) 11/01/21 05:20 Hgb 10.4 g/dL (11.5-15.3) L 11/01/21 05:20 Hct 32.8 % (37.0-47.0) L 11/01/21 05:20 MCV 75.9 fl (81-99) L 11/01/21 05:20 MCH 24.1 pg (28.0-34.0) L 11/01/21 05:20 MCHC 31.7 g/dL (30.0-36.0) 11/01/21 05:20 RDW 16.6 % (12.1-15.1) H 11/01/21 05:20 Plt Count 276 10^3/cmm (130-400) 11/01/21 05:20 MPV 8.5 fL (7.4-10.4) 11/01/21 05:20 Neut % (Auto) 64.9 % 11/01/21 05:20 Lymph % (Auto) 24.0 % 11/01/21 05:20 [place] % (Auto) 6.6 % 11/01/21 05:20 Eos % (Auto) 3.8 % 11/01/21 05:20 Baso % (Auto) 0.5 % 11/01/21 05:20 Neut # (Auto) 6.02 10^3/uL (1.8-7.7) 11/01/21 05:20 Lymph # (Auto) 2.2 10^3/uL (0.8-4.8) 11/01/21 05:20 [place] # (Auto) 0.6 10^3/uL (0.2-0.9) 11/01/21 05:20 Eos # (Auto) 0.4 10^3/uL (0.0-0.8) 11/01/21 05:20 Baso # (Auto) 0.1 10^3/uL (0.0-0.1) 11/01/21 05:20 Nucleated RBC % (auto) 0 % 11/01/21 05:20 Nucleated RBCs # 0.0 /100WBC 11/01/21 05:20 Sodium 136 mmol/L (136-145) 11/01/21 05:20 Potassium 3.6 mmol/L (3.5-5.1) 11/01/21 05:20 Chloride 100 mmol/L (98-107) 11/01/21 05:20 Carbon Dioxide 24 mmol/L (22-29) 11/01/21 05:20 Anion Gap 15.6 (5-19) 11/01/21 05:20 BUN 12 mg/dL (8-23) 11/01/21 05:20 Creatinine 0.9 mg/dL (0.5-0.9) 11/01/21 05:20 GFR Calculation 63.7 mL/min (90-130) L 11/01/21 05:20 Glucose 153 mg/dL (65-115) H 11/01/21 05:20 POC Glucose 155 mg/dL (70-110) H 11/01/21 05:05 Calculated Osmolality 285 mOsm/kg (285-295) 11/01/21 05:20 Calcium 8.7 mg/dL (8.5-10.5) 11/01/21 05:20 Total Bilirubin 0.4 mg/dL (0.15-1.2) 11/01/21 05:20 AST 14 U/L (0-32) 11/01/21 05:20 ALT 11 U/L (0-33) 11/01/21 05:20 Alkaline Phosphatase 116 IU/L (35-105) H 11/01/21 05:20 Troponin T Baseline 20 ng/L (0-10) H 11/01/21 05:20 Troponin T 120 Minute 18.22 ng/L (0-10) H 11/01/21 07:25 Delta Troponin T -1.78 ABS# (0-10) L 11/01/21 07:25 NT-Pro-B Natriuret Pep 305 pg/mL (0-125) H 11/01/21 05:20 Total Protein 8.0 g/dL (6.6-8.7) 11/01/21 05:20 Albumin 3.6 g/dL (3.5-5.2) 11/01/21 05:20 Globulin 4.4 g/dL (1.3-4.6) 11/01/21 05:20 EKG Data EKG 1: I personally reviewed and interpreted this EKG as follows: EKG interpretation date: 11/01/21 EKG interpretation time: 05:22 Interpretation: nsr hr [address] or t wave abnormalities qrs 96 qtc 395 Discharge Plan Discharge Patient Disposition: Home Clinical Impression: Atypical chest pain, Diabetes type 2, uncontrolled Condition: Stable Prescriptions: New aspirin 81 mg tablet,delayed release (DR/EC) 81 mg PO DAILY Qty: 30 0RF isosorbide mononitrate 30 mg tablet extended release 24 hr 30 mg PO DAILY Qty: 30 0RF No Action atorvastatin 40 mg tablet 40 mg PO DAILY Qty: 90 3RF Rx Instructions: Take one tablet by mouth daily. (DME) Dexcom G6 Health And Safety Director Misc See Rx Instructions .Route Qty: 1 0RF Rx Instructions: Check BS 4 times a day. (DME) Dexcom G6 Sensor Device See Rx Instructions .Route Qty: 3 3RF Rx Instructions: Change every 10 days. (DME) Dexcom G6 Transmitter Device See Rx Instructions .Route Qty: 1 3RF Rx Instructions: As directed albuterol sulfate 90 mcg/actuation HFA aerosol inhaler 2 puff inhalation Q6H PRN (Reason: shortness of breath or wheezing) Qty: 8.5 0RF (DME) nebulizer accessories Kit See Rx Instructions .Route Qty: 1 0RF Rx Instructions: Sphere 3d full Nebulizer Kit Use As directed budesonide 1 mg/2 mL suspension for nebulization 1 mg inhalation Q12H 14 Days Qty: 56 0RF Basaglar KwikPen U-100 Insulin 100 unit/mL (3 mL) insulin pen 80 unit SUBCUT BID Qty: 45 3RF Rx Instructions: Administer 80 units subcut twice a day. metformin 1,000 mg tablet 1,000 mg PO BID 0RF duloxetine 60 mg capsule,delayed release(DR/EC) 60 mg PO DAILY 0RF omeprazole 40 mg Capsule,Delayed Release(Dr/Ec) 40 mg PO DAILY 0RF ferrous sulfate [iron] 325 mg (65 mg iron) Tablet 325 mg PO DAILY 0RF Discharge Orders: Discharge ED (Routine); Ordered 11/01/21 Ordered By: Richy Pearson Referrals: Gale Gore FNP-C [Primary Care Provider] - Discharge Diet: Usual diet Discharge Activity: Limit activity as instructed Patient Instructions: Opioid Safety Activity Restrictions/Additional Instructions: Avoid strenuous activity. Case management will contact you regarding a stress test. Sign Out Sign Out Data: Patient Sign Out occurred on 11/01/21 at 07:07. Patient's care was discussed, and care was transferred from to Richy Pearson DO. Coding Level of Care Code ED Nurse Practitioner Home Assessments for Chg Fwd Exam Comprehensive Documented by User: Richy Pearson DO 11/02/21 06:03 HPI - Chest Pain General: Chief Complaint: Chest Pain Stated Complaint: blood sugar issues Time Seen by Provider: 11/01/21 04:58 PFSH ED PFSH: Medical History Anxiety Chronic GERD Gastric ulcer HX: benign breast biopsy Insulin dependent diabetes mellitus Iron deficiency anemia Normal colonoscopy Type 2 diabetes mellitus Surgical History H/O arthroscopic knee surgery H/O discectomy History of esophagogastroduodenoscopy (EGD) History of hysterectomy History of tubal ligation Hx of cholecystectomy Family History Father CAD (coronary artery disease) Mother CAD (coronary artery disease) Social History Smoking and tobacco status: never smoked Alcohol intake: never Lives independently: Yes Household members: spouse Marital status: Course Vital Signs: Vital signs: Vital Signs Temperature 98.0 F 11/01/21 05:08 Pulse Rate 68 11/01/21 08:25 Respiratory Rate 18 11/01/21 08:25 Blood Pressure 142/81 11/01/21 08:25 Pulse Oximetry 96 11/01/21 08:25 MDM - Chest Pain Medical Decision Making Patient presents here with atypical chest pain blood sugar issues her initial blood sugar here is normal patient is awaiting 2-hour troponin patient care turned over to Dr. Pearson at this time. Care assumed at change of shift. Labs and imaging reviewed. Second troponin unremarkable. Will discharge patient home set up patient for outpatient Lexiscan sestamibi stress test. Medical Records I reviewed the patient's medical records. Lab Data I reviewed the patient's lab results. : 11/01/21 05:20 11/01/21 05:20 Radiology Impressions Chest X-Ray 11/01/21 05:05 IMPRESSION: No acute findings. Laboratory Results WBC 9.3 10^3/uL (4.0-10.0) 11/01/21 05:20 RBC 4.32 10^6/uL (4.1-5.3) 11/01/21 05:20 Hgb 10.4 g/dL (11.5-15.3) L 11/01/21 05:20 Hct 32.8 % (37.0-47.0) L 11/01/21 05:20 MCV 75.9 fl (81-99) L 11/01/21 05:20 MCH 24.1 pg (28.0-34.0) L 11/01/21 05:20 MCHC 31.7 g/dL (30.0-36.0) 11/01/21 05:20 RDW 16.6 % (12.1-15.1) H 11/01/21 05:20 Plt Count 276 10^3/cmm (130-400) 11/01/21 05:20 MPV 8.5 fL (7.4-10.4) 11/01/21 05:20 Neut % (Auto) 64.9 % 11/01/21 05:20 Lymph % (Auto) 24.0 % 11/01/21 05:20 [place] % (Auto) 6.6 % 11/01/21 05:20 Eos % (Auto) 3.8 % 11/01/21 05:20 Baso % (Auto) 0.5 % 11/01/21 05:20 Neut # (Auto) 6.02 10^3/uL (1.8-7.7) 11/01/21 05:20 Lymph # (Auto) 2.2 10^3/uL (0.8-4.8) 11/01/21 05:20 [place] # (Auto) 0.6 10^3/uL (0.2-0.9) 11/01/21 05:20 Eos # (Auto) 0.4 10^3/uL (0.0-0.8) 11/01/21 05:20 Baso # (Auto) 0.1 10^3/uL (0.0-0.1) 11/01/21 05:20 Nucleated RBC % (auto) 0 % 11/01/21 05:20 Nucleated RBCs # 0.0 /100WBC 11/01/21 05:20 Sodium 136 mmol/L (136-145) 11/01/21 05:20 Potassium 3.6 mmol/L (3.5-5.1) 11/01/21 05:20 Chloride 100 mmol/L (98-107) 11/01/21 05:20 Carbon Dioxide 24 mmol/L (22-29) 11/01/21 05:20 Anion Gap 15.6 (5-19) 11/01/21 05:20 BUN 12 mg/dL (8-23) 11/01/21 05:20 Creatinine 0.9 mg/dL (0.5-0.9) 11/01/21 05:20 GFR Calculation 63.7 mL/min (90-130) L 11/01/21 05:20 Glucose 153 mg/dL (65-115) H 11/01/21 05:20 POC Glucose 155 mg/dL (70-110) H 11/01/21 05:05 Calculated Osmolality 285 mOsm/kg (285-295) 11/01/21 05:20 Calcium 8.7 mg/dL (8.5-10.5) 11/01/21 05:20 Total Bilirubin 0.4 mg/dL (0.15-1.2) 11/01/21 05:20 AST 14 U/L (0-32) 11/01/21 05:20 ALT 11 U/L (0-33) 11/01/21 05:20 Alkaline Phosphatase 116 IU/L (35-105) H 11/01/21 05:20 Troponin T Baseline 20 ng/L (0-10) H 11/01/21 05:20 Troponin T 120 Minute 18.22 ng/L (0-10) H 11/01/21 07:25 Delta Troponin T -1.78 ABS# (0-10) L 11/01/21 07:25 NT-Pro-B Natriuret Pep 305 pg/mL (0-125) H 11/01/21 05:20 Total Protein 8.0 g/dL (6.6-8.7) 11/01/21 05:20 Albumin 3.6 g/dL (3.5-5.2) 11/01/21 05:20 Globulin 4.4 g/dL (1.3-4.6) 11/01/21 05:20 Discharge Plan Discharge Patient Disposition: Home Clinical Impression: Atypical chest pain, Diabetes type 2, uncontrolled Condition: Stable Prescriptions: New aspirin 81 mg tablet,delayed release (DR/EC) 81 mg PO DAILY Qty: 30 0RF isosorbide mononitrate 30 mg tablet extended release 24 hr 30 mg PO DAILY Qty: 30 0RF No Action atorvastatin 40 mg tablet 40 mg PO DAILY Qty: 90 3RF Rx Instructions: Take one tablet by mouth daily. (DME) Dexcom G6 Health And Safety Director Misc See Rx Instructions .Route Qty: 1 0RF Rx Instructions: Check BS 4 times a day. (DME) Dexcom G6 Sensor Device See Rx Instructions .Route Qty: 3 3RF Rx Instructions: Change every 10 days. (DME) Dexcom G6 Transmitter Device See Rx Instructions .Route Qty: 1 3RF Rx Instructions: As directed albuterol sulfate 90 mcg/actuation HFA aerosol inhaler 2 puff inhalation Q6H PRN (Reason: shortness of breath or wheezing) Qty: 8.5 0RF (DME) nebulizer accessories Kit See Rx Instructions .Route Qty: 1 0RF Rx Instructions: Sphere 3d full Nebulizer Kit Use As directed budesonide 1 mg/2 mL suspension for nebulization 1 mg inhalation Q12H 14 Days Qty: 56 0RF Basaglar KwikPen U-100 Insulin 100 unit/mL (3 mL) insulin pen 80 unit SUBCUT BID Qty: 45 3RF Rx Instructions: Administer 80 units subcut twice a day. metformin 1,000 mg tablet 1,000 mg PO BID 0RF duloxetine 60 mg capsule,delayed release(DR/EC) 60 mg PO DAILY 0RF omeprazole 40 mg Capsule,Delayed Release(Dr/Ec) 40 mg PO DAILY 0RF ferrous sulfate [iron] 325 mg (65 mg iron) Tablet 325 mg PO DAILY 0RF Discharge Orders: Discharge ED (Routine); Ordered 11/01/21 Ordered By: Richy Perason Referrals: Gale Gore FNP-C [Primary Care Provider] - Discharge Diet: Usual diet Discharge Activity: Limit activity as instructed Patient Instructions: Opioid Safety Activity Restrictions/Additional Instructions: Avoid strenuous activity. Case management will contact you regarding a stress test. Sign Out Sign Out Data: Patient Sign Out occurred on 11/01/21 at 07:07. Patient's care was discussed, and care was transferred from to Richy Pearson DO. Coding Level of Care Code ED Nurse Practitioner Home Assessments for Chg Fwd Exam Comprehensive
[2021-11-01 05:08] VITALS: BP 180/120; PULSE 81; RESP 18; TEMP 36.7; O2SAT 95; BMI 42.7
[2021-11-01 05:09] LABS: Glucose Point of Care 155 mg/dL (70-110)
[2021-11-01 05:28] LABS: Basophils # 0.1 10^3/uL (0.0-0.1); Basophils % 0.5 %; Eosinophils # 0.4 10^3/uL (0.0-0.8); Eosinophils % 3.8 %; Hematocrit 32.8 % (37.0-47.0); Hemoglobin 10.4 g/dL (11.5-15.3); Lymphocytes # 2.2 10^3/uL (0.8-4.8); Mean Corpuscular HGB Conc 31.7 g/dL (30.0-36.0); Mean Corpuscular Hemoglobin 24.1 pg (28.0-34.0); Mean Corpuscular Volume 75.9 fl (81-99); Mean Platelet Volume 8.5 fL (7.4-10.4); Monocytes # 0.6 10^3/uL (0.2-0.9); Monocytes % 6.6 %; Neutrophils # 6.02 10^3/uL (1.8-7.7); Neutrophils % 64.9 %; Nucleated Red Blood Cells % 0 %; Platelet Count 276 10^3/cmm (130-400); Red Blood Count 4.32 10^6/uL (4.1-5.3); Red Cell Distribution Width 16.6 % (12.1-15.1); White Blood Count 9.3 10^3/uL (4.0-10.0)
[2021-11-01] MEDS: morphine 4 mg/mL SDV 1 mL IVP (05:35)
[2021-11-01] MEDS: ondansetron 2 mg/ML SDV 2 mL 4 MG IVP (05:35)
[2021-11-01 05:50] LABS: Troponin(5th) Baseline 20 ng/L (0-10)
[2021-11-01 05:56] LABS: Alanine Aminotransferase 11 U/L (0-33); Albumin Level 3.6 g/dL (3.5-5.2); Alkaline Phosphatase 116 IU/L (35-105); Anion Gap 15.6 (5-19); Aspartate Amino Transferase 14 U/L (0-32); Blood Urea Nitrogen 12 mg/dL (8-23); Calcium 8.7 mg/dL (8.5-10.5); Carbon Dioxide 24 mmol/L (22-29); Chloride 100 mmol/L (98-107); Globulin 4.4 g/dL (1.3-4.6); Glomerular Filtration Rate 63.7 mL/min (90-130); Glucose 153 mg/dL (65-115); NT Pro B Type Natriuretic Pept 305 pg/mL (0-125); Osmolality Calculated 285 mOsm/kg (285-295); Potassium 3.6 mmol/L (3.5-5.1); Sodium 136 mmol/L (136-145); Total Bilirubin 0.4 mg/dL (0.15-1.2)
--- NOTE | 2021-11-01 06:16 | PC.NURSE ---
patients blood pressure went from 180/120 to 155/90. medication no longer needed.
--- NOTE | 2021-11-01 07:05 | ECG_ITS ---
[facility] Test Date: 2021-11-01 Pat Name: Nona Sevilla Department: Room: Gender: Female Pre Sales Technical Consultant: : [id number] Requested By: Izaiah Hodges Order Number: [id number] Nancy MD: Lubna Koenig M.D. Measurements Intervals [place] Rate: 65 P: -3 NE: 144 QRS: 14 QRSD: 88 T: 44 QT: 396 QTc: 414 Interpretive Statements SINUS RHYTHM MINIMAL VOLTAGE CRITERIA FOR LVH, CONSIDER NORMAL VARIANT [MEETS CRITERIA IN ONE OF: R(aVL), S(V1), R(V5), R(V5/V6)+S(V1)] NONSPECIFIC T-WAVE ABNORMALITY Compared to ECG 11/01/2021 05:22:12 T-wave abnormality now present Short NE interval no longer present Electronically Signed On 11-01-2021 20:10:47 CDT by Lubna Koenig M.D. [email or web address]
[2021-11-01 07:12] VITALS: BP 142/101; PULSE 67; RESP 18; O2SAT 96
[2021-11-01 07:50] LABS: Troponin 5 2HR 18.22 ng/L (0-10)
[2021-11-01 07:55] LABS: Troponin 5 2HR Delta -1.78 ABS# (0-10)
[2021-11-01 08:25] VITALS: BP 142/81; PULSE 68; RESP 18; O2SAT 96
--- NOTE | 2021-11-09 11:15 | DCPLANNER ---
Addendum entered by Sujey Alvarado 05/11/22 13:11: recruiter account manager had message from centralized scheduling that patient did not want the test ordered. Original Note: recruiter account manager had message to schedule an outpatient stress test for patient. recruiter account manager faxed signed order to centralized scheduling, who will call patient with appointment information.
== END 2021-11-01 08:15 | disposition home or self-care (01) ==
PROVIDERS: Emergency Medicine; Emergency Provider Family Medicine; PCP Nurse Practitioner Family
DX: R07.89 Other chest pain (principal); E11.9 Type 2 diabetes mellitus without complications; Z79.84 Long term (current) use of oral hypoglycemic drugs; Z79.4 Long term (current) use of insulin
CPT/HCPCS: 36416; 71045; 80053; 82962; 83880; 84484; 85025; 93005; 96374; 96375; 99285; J2270; J2405

== ENCOUNTER 2021-11-11 10:19 | Outpatient (CLI) | payer BC, SELFPAY ==
[2021-11-11 11:27] LABS: Estmated Average Glucose 212
[2021-11-11 11:35] LABS: Chol HDL Ratio 3.59 mg/dL (0.0-4.40); Cholesterol 176 mg/dL (0-200); HDL Cholesterol 49 mg/dL (60-100); LDL Cholesterol Calculated 106 mg/dL (50-129); LDL HDL Ratio 2.16 RATIO (0.00-3.22); Triglycerides 106 mg/dL (0-150)
== END 2021-11-11 10:20 | disposition home or self-care (01) ==
PROVIDERS: PCP Family Medicine Adult Medicine; Visit Provider Internal Medicine
DX: E11.22 Type 2 diabetes mellitus with diabetic chronic kidney disease (principal); E11.65 Type 2 diabetes mellitus with hyperglycemia; N18.30 Chronic kidney disease, stage 3 unspecified
CPT/HCPCS: 36415; 80061; 83036

== ENCOUNTER 2022-02-09 06:14 | Outpatient (CLI) | payer BC, SELFPAY ==
[2022-02-09 06:56] LABS: Estmated Average Glucose 174; Hemoglobin A1C 7.7 % (4.0-6.0)
[2022-02-09 07:05] LABS: Chol HDL Ratio 3.42 mg/dL (0.0-4.40); Cholesterol 164 mg/dL (0-200); HDL Cholesterol 48 mg/dL (60-100); LDL Cholesterol Calculated 95 mg/dL (50-129); LDL HDL Ratio 1.98 RATIO (0.00-3.22); Triglycerides 105 mg/dL (0-150)
== END 2022-02-09 06:15 | disposition home or self-care (01) ==
LOC: LAB 06:16
PROVIDERS: PCP Family Medicine; Visit Provider Internal Medicine
DX: Z01.89 Encounter for other specified special examinations (principal)
CPT/HCPCS: 36415; 80061; 83036

== ENCOUNTER 2022-04-11 11:47 | Emergency (ER) | payer BC, SELFPAY ==
[2022-04-11 12:06] VITALS: BP 118/87; PULSE 73; RESP 18; TEMP 36.4; O2SAT 97
--- NOTE | 2022-04-11 13:17 | W.ED.NAVMDI ---
HPI - Nausea/Vomiting/Diarrhea General: Chief complaint: Nausea/Vomiting/Diarrhea Stated complaint: D/throwing up, dizzy, blood sugar low or high. Time Seen by Provider: 04/11/22 13:15 History of Present Illness: Ms. Sevilla is a 61-year-old lady with history of insulin-dependent diabetes, CKD, history of diverticulitis presenting to the emergency department due to GI complaints. She reports onset of symptoms approximately 2 weeks ago. Since that time she has had progressively worsening nausea, vomiting, left lower quadrant sharp stabbing abdominal pain, and diarrhea. She has also had generalized malaise. She feels dehydrated and symptoms have progressed to the point that she has dizziness upon standing. Intensity symptoms is moderate to severe. Course has worsened. No other specific changes in health, exacerbating, or alleviating factors identified. Onset (ago): week(s) Description of vomiting: watery Description of diarrhea: watery Associated nausea: Yes Associated abdominal pain: Yes Location of pain: Diffuse Severity: moderate Exacerbating factors: eating Associated symtoms: Reports dizziness, nausea and weakness Review of Systems General: Reports: 10 or more systems reviewed and unremarkable except in HPI and below GI: Reports: nausea Neuro: Reports: dizziness PFSH ED PFSH: Medical History Anxiety Chronic GERD Gastric ulcer HX: benign breast biopsy Insulin dependent diabetes mellitus Iron deficiency anemia Liver mass benign Normal colonoscopy Pneumonia Type 2 diabetes mellitus Vomiting Surgical History H/O arthroscopic knee surgery Left H/O discectomy L4-L5 History of colonoscopy History of esophagogastroduodenoscopy (EGD) History of hysterectomy IGNACIO-BSO. Benign History of tubal ligation Hx of cholecystectomy Family History Father CAD (coronary artery disease) Mother CAD (coronary artery disease) Social History Smoking and tobacco status: never smoked Alcohol intake: never Lives independently: Yes Household members: spouse Marital status: Physical Exam Const: COMMON NORMALS: patient oriented x3 and alert GENERAL APPEARANCE: cooperative and well developed HENMT: COMMON NORMALS: normocephalic and atraumatic HEAD & SCALP: normocephalic and atraumatic THROAT: posterior oropharynx normal Eye: COMMON NORMALS: conjunctivae normal CONJUNCTIVA: Yes conjunctivae normal SCLERA: sclerae normal Neck/C-Spine: COMMON NORMALS: supple GENERAL: Yes trachea midline Resp: COMMON NORMALS: clear to auscultation bilaterally EFFORT & INSPECTION: Yes able to speak in complete sentences AUSCULTATION: clear to auscultation bilaterally Cardio: COMMON NORMALS: regular rate and regular rhythm RATE: regular rate RHYTHM: regular rhythm GI: COMMON NORMALS: Soft to palpation PALPATION: Yes Soft to palpation, Yes Tenderness to palpation present (GI), No Guarding due to palpation present (GI) and No Rigid due to palpation Extremity: GENERAL: Yes normal exam except as noted and No edema Neuro: COMMON NORMALS: patient oriented x3, CN's II-XII intact bilaterally, moves all extremities, no focal motor deficits and no sensory deficits noted SENSORIUM/ORIENTATION: Yes alert and No Orientation impaired Psych: COMMON NORMALS: mental status grossly normal and Normal thought process present THOUGHT PROCESS: Normal thought process present Course Vital Signs: Vital signs: Vital Signs Temperature 97.6 F 04/11/22 12:06 Pulse Rate 78 04/11/22 18:12 Respiratory Rate 18 04/11/22 17:17 Blood Pressure 150/93 04/11/22 18:12 Pulse Oximetry 99 04/11/22 18:12 MDM - Nausea/Vomiting/Diarrhea Medical Decision Making 61-year-old female with history of diverticulitis, CKD, diabetes presenting to the emergency department due to progressively worsening abdominal symptoms. Exam as above. Labs notable for no leukocytosis, mild microcytic anemia, normal platelet count. Metabolic panel without significant electrolyte derangement. Evidence of urinary tract infection present on urinalysis. CT shows likely improving diverticulitis and bladder wall thickening. Patient feels significantly improved with antiemetic, analgesia, fluids. She is able to tolerate p.o. intake. Antibiotics given. Discussed possible disposition options and patient is comfortable with outpatient management trial with strict return precautions. Most likely etiology of patient's symptoms is resolving diverticulitis and urinary tract infection. The results of ED evaluation were discussed with the patient including prescriptions and/or symptomatic cares (if applicable) including appropriate and responsible use, followup plan, and return precautions. The patient verbalized understanding and felt safe for discharge. Medical Records I reviewed the patient's medical records. Lab Data I reviewed the patient's lab results. 04/11/22 14:15 04/11/22 14:15 Radiology Impressions Abdomen/Pelvis CT 04/11/22 13:39 IMPRESSION: 1. Sigmoid diverticulosis with trace free fluid noted adjacent to the sigmoid colon. Findings most likely reflect a recent bout of diverticulitis. 2. Circumferential wall thickening of the bladder. Findings may reflect cystitis or reactive changes secondary to the inflammatory findings near the sigmoid colon. Laboratory Results WBC 9.3 10^3/uL (4.0-10.0) 04/11/22 14:15 RBC 4.53 10^6/uL (4.1-5.3) 04/11/22 14:15 Hgb 10.7 g/dL (11.5-15.3) L 04/11/22 14:15 Hct 36.1 % (37.0-47.0) L 04/11/22 14:15 MCV 79.7 fl (81-99) L 04/11/22 14:15 MCH 23.6 pg (28.0-34.0) L 04/11/22 14:15 MCHC 29.6 g/dL (30.0-36.0) L 04/11/22 14:15 RDW 16.7 % (12.1-15.1) H 04/11/22 14:15 Plt Count 331 10^3/cmm (130-400) 04/11/22 14:15 MPV 8.8 fL (7.4-10.4) 04/11/22 14:15 Neut % (Auto) 63.0 % 04/11/22 14:15 Lymph % (Auto) 28.0 % 04/11/22 14:15 Iron % (Auto) 4.9 % 04/11/22 14:15 Eos % (Auto) 3.2 % 04/11/22 14:15 Baso % (Auto) 0.6 % 04/11/22 14:15 Neut # (Auto) 5.85 10^3/uL (1.8-7.7) 04/11/22 14:15 Lymph # (Auto) 2.6 10^3/uL (0.8-4.8) 04/11/22 14:15 Iron # (Auto) 0.5 10^3/uL (0.2-0.9) 04/11/22 14:15 Eos # (Auto) 0.3 10^3/uL (0.0-0.8) 04/11/22 14:15 Baso # (Auto) 0.1 10^3/uL (0.0-0.1) 04/11/22 14:15 Nucleated RBC % (auto) 0 % 04/11/22 14:15 Nucleated RBCs # 0.0 /100WBC 04/11/22 14:15 Sodium 136 mmol/L (136-145) 04/11/22 14:15 Potassium 3.9 mmol/L (3.5-5.1) 04/11/22 14:15 Chloride 100 mmol/L (98-107) 04/11/22 14:15 Carbon Dioxide 25 mmol/L (22-29) 04/11/22 14:15 Anion Gap 14.9 (5-19) 04/11/22 14:15 BUN 10 mg/dL (8-23) 04/11/22 14:15 Creatinine 0.9 mg/dL (0.5-0.9) 04/11/22 14:15 GFR Calculation 63.7 mL/min (90-130) L 04/11/22 14:15 Glucose 140 mg/dL (65-115) H 04/11/22 14:15 POC Glucose 145 mg/dL (70-110) H 04/11/22 13:56 Calculated Osmolality 283 mOsm/kg (285-295) L 04/11/22 14:15 Calcium 9.2 mg/dL (8.5-10.5) 04/11/22 14:15 Total Bilirubin 0.4 mg/dL (0.15-1.2) 04/11/22 14:15 AST 20 U/L (0-32) 04/11/22 14:15 ALT 15 U/L (0-33) 04/11/22 14:15 Alkaline Phosphatase 129 U/L (35-105) H 04/11/22 14:15 Total Protein 8.3 g/dL (6.6-8.7) 04/11/22 14:15 Albumin 3.7 g/dL (3.5-5.2) 04/11/22 14:15 Globulin 4.6 g/dL (1.3-4.6) 04/11/22 14:15 Lipase 12 U/L (13-60) L 04/11/22 14:15 Urine Color Yellow (Yellow) 04/11/22 15:45 Urine Appearance Clear (CLEAR) 04/11/22 15:45 Urine pH 5 (5-7) 04/11/22 15:45 Ur Specific [place] 1.010 (1.005-1.030) 04/11/22 15:45 Urine Protein Trace (Negative) 04/11/22 15:45 Urine Glucose (UA) Norm (Normal) 04/11/22 15:45 Urine Ketones Negative (Negative) 04/11/22 15:45 Urine Blood Neg (Negative) 04/11/22 15:45 Urine Nitrate Positive (Negative) H 04/11/22 15:45 Urine Bilirubin Neg (Negative) 04/11/22 15:45 Urine Urobilinogen Norm mg/dL (Negative) 04/11/22 15:45 Ur Leukocyte Esterase 2+ (Negative) H 04/11/22 15:45 Urine RBC None /hpf (0-2) 04/11/22 15:45 Urine WBC 55-80 /hpf (0-5) H 04/11/22 15:45 Ur Squamous Epith Cells 0-4 /hpf (0-5) H 04/11/22 15:45 Amorphous Sediment Not Reportable 04/11/22 15:45 Urine Bacteria 4+ /hpf (NONE) H 04/11/22 15:45 Discharge Plan Discharge Patient Disposition: Home Clinical Impression: Diverticulitis, UTI (urinary tract infection) Condition: Stable Prescriptions: New ciprofloxacin HCl 500 mg tablet 500 mg PO BID Qty: 20 0RF ondansetron 4 mg tablet,disintegrating 4 mg PO Q8H PRN (Reason: nausea and vomiting) Qty: 15 0RF No Action metformin 500 mg tablet extended release 24 hr 1,000 mg PO BID Qty: 360 3RF ondansetron HCl 4 mg tablet 4 mg PO Q6H PRN (Reason: nausea and vomiting) Qty: 20 0RF buspirone 5 mg tablet 5 mg PO TID Qty: 270 1RF duloxetine 60 mg capsule,delayed release(DR/EC) 60 mg PO DAILY omeprazole 40 mg Capsule,Delayed Release(Dr/Ec) 40 mg PO DAILY ferrous sulfate [iron] 325 mg (65 mg iron) Tablet 325 mg PO DAILY rosuvastatin 10 mg tablet 10 mg PO BEDTIME Elijah Banks U-100 Insulin 100 unit/mL (3 mL) insulin pen 74 unit SUBCUT BID Rx Instructions: Administer 73 units subcut twice a day. Please disregard prior Rx Discharge Orders: Discharge ED (Routine); Ordered 04/11/22 Ordered By: Regino Lomas Referrals: Mila Garzon, [Primary Care Provider] - Discharge Diet: Advance as tolerated and Clear Liquid Discharge Activity: Increase activity as tolerated Patient Instructions: Diverticulitis (ED), Urinary Tract Infection in Women (ED), Opioid Safety, Pain Management Activity Restrictions/Additional Instructions: Thank you for visiting the emergency department. You were seen and evaluate for abdominal pain and generalized symptoms. The likely cause of your symptoms is associated with recent diverticulitis and also urinary tract infection. This will be treated with antibiotics. Please follow-up with your primary care provider. You may use [id number] medications such as acetaminophen and ibuprofen for pain however please do not exceed the daily recommended dosage as listed on the packaging and please keep in mind that many namebrand medications contain the same active ingredients. Return to the emergency department for uncontrolled symptoms, inability to tolerate oral intake, or anything else that you are concerned about a feel needs emergency department evaluation. Stand Alone Forms: Work/School Release Coding Level of Care Code ED [employer] Inter[employer] Controller Supervisor for Fang Lewis
--- NOTE | 2022-04-11 13:39 | CTR_ITS ---
PROCEDURE INFORMATION: Exam: CT Abdomen And Pelvis With Contrast Exam date and time: 04/11/2022 3:05 PM Age: 61 years old Clinical indication: Abdominal pain; Localized; Left lower quadrant (llq); Prior surgery; Surgery type: Gb, tubal ; Additional info: N/v/d, llq pain TECHNIQUE: Imaging protocol: Computed tomography of the abdomen and pelvis with contrast. Radiation optimization: All CT scans at this facility use at least one of these dose optimization techniques: automated exposure control; mA and/or kV adjustment per patient size (includes targeted exams where dose is matched to clinical indication); or iterative reconstruction. Contrast material: OMNI 350; Contrast volume: 100 ml; Contrast route: INTRAVENOUS (IV); COMPARISON: CT abdomen pelvis w con* [id number] 07/08/2019 2:08 PM RADIATION DOSE METRICS: Total DLP (mGy-cm): 1039.49 FINDINGS: Liver: Normal. No mass. Gallbladder and bile ducts: Cholecystectomy. No ductal dilation. Pancreas: Normal. No ductal dilation. Spleen: Normal. No splenomegaly. Adrenal glands: Normal. No mass. Kidneys and ureters: Normal. No hydronephrosis. Stomach and bowel: Trace free fluid noted along the anti mesenteric border of the sigmoid colon. There is sigmoid diverticulosis in this region. No obstruction. No mucosal thickening. Appendix: No evidence of appendicitis. Intraperitoneal space: No free air. No significant fluid collection. Vasculature: No abdominal aortic aneurysm. Lymph nodes: No enlarged lymph nodes. Urinary bladder: Circumferential wall thickening of the bladder. Reproductive: Hysterectomy. Bones/joints: No acute fracture. Soft tissues: Unremarkable. CT/CT abdomen pelvis w con* [id number] IMPRESSION: 1. Sigmoid diverticulosis with trace free fluid noted adjacent to the sigmoid colon. Findings most likely reflect a recent bout of diverticulitis. 2. Circumferential wall thickening of the bladder. Findings may reflect cystitis or reactive changes secondary to the inflammatory findings near the sigmoid colon.
[2022-04-11 14:01] LABS: Glucose Point of Care 145 mg/dL (70-110)
[2022-04-11 14:03] VITALS: RESP 18
[2022-04-11] MEDS: ondansetron 2 mg/ML SDV 2 mL 4 MG IVP (14:03)
[2022-04-11] MEDS: morphine 4 mg/mL SDV 1 mL IVP ×2 (14:03→17:17)
[2022-04-11] MEDS: meclizine 25 mg tablet PO (14:03)
[2022-04-11] MEDS: sodium chloride 0.9% 1,000 ML 999 ML IV (14:04)
[2022-04-11 14:20] LABS: Basophils # 0.1 10^3/uL (0.0-0.1); Basophils % 0.6 %; Eosinophils # 0.3 10^3/uL (0.0-0.8); Eosinophils % 3.2 %; Hematocrit 36.1 % (37.0-47.0); Hemoglobin 10.7 g/dL (11.5-15.3); Lymphocytes # 2.6 10^3/uL (0.8-4.8); Mean Corpuscular HGB Conc 29.6 g/dL (30.0-36.0); Mean Corpuscular Hemoglobin 23.6 pg (28.0-34.0); Mean Corpuscular Volume 79.7 fl (81-99); Mean Platelet Volume 8.8 fL (7.4-10.4); Monocytes # 0.5 10^3/uL (0.2-0.9); Monocytes % 4.9 %; Neutrophils # 5.85 10^3/uL (1.8-7.7); Nucleated Red Blood Cells % 0 %; Platelet Count 331 10^3/cmm (130-400); Red Blood Count 4.53 10^6/uL (4.1-5.3); Red Cell Distribution Width 16.7 % (12.1-15.1); White Blood Count 9.3 10^3/uL (4.0-10.0)
[2022-04-11 14:39] LABS: Alanine Aminotransferase 15 U/L (0-33); Albumin Level 3.7 g/dL (3.5-5.2); Alkaline Phosphatase 129 U/L (35-105); Anion Gap 14.9 (5-19); Aspartate Amino Transferase 20 U/L (0-32); Blood Urea Nitrogen 10 mg/dL (8-23); Calcium 9.2 mg/dL (8.5-10.5); Carbon Dioxide 25 mmol/L (22-29); Chloride 100 mmol/L (98-107); Globulin 4.6 g/dL (1.3-4.6); Glomerular Filtration Rate 63.7 mL/min (90-130); Glucose 140 mg/dL (65-115); Lipase 12 U/L (13-60); Osmolality Calculated 283 mOsm/kg (285-295); Potassium 3.9 mmol/L (3.5-5.1); Sodium 136 mmol/L (136-145); Total Bilirubin 0.4 mg/dL (0.15-1.2); Total Protein 8.3 g/dL (6.6-8.7)
[2022-04-11] MEDS: iohexol 350 mg/mL 500 mL Btl (per mL) IV (15:12)
[2022-04-11] MEDS: diphenhydrAMINE 50 mg/mL SDV 1mL 12.5 MG IVP (15:36)
[2022-04-11] MEDS: metoclopramide 5 mg/mL SDV 2 mL 10 MG IVP (15:36)
[2022-04-11 15:39] VITALS: BP 122/70; PULSE 82; RESP 18; O2SAT 98
[2022-04-11 16:51] LABS: Urine Appearance Clear (CLEAR); Urine Color Yellow (Yellow)
[2022-04-11 16:52] LABS: Add Urine Microscopic? YES; Bilirubin Urine Neg (Negative); Blood Urine Neg (Negative); Glucose Urine UA Norm (Normal); Ketones Urine Negative (Negative); Leukocyte Esterase Urine 2+ (Negative); Nitrate Urine Positive (Negative); Protein Urine Trace (Negative); Urobilinogen Urine Norm (Negative); pH Urine 5 (5-7)
[2022-04-11 16:53] LABS: WBC Urine 55-80 /hpf (0-5)
[2022-04-11 16:54] LABS: Add Urine Culture? Yes; Bacteria Urine 4+ /hpf; Squamous Epithelial Cell Urine 0-4 /hpf (0-5)
[2022-04-11] MEDS: cefTRIAXone 1,000 MG in sodium chloride 0.9% (plus) 50 ML 100 MG IV (17:04)
[2022-04-11 17:17] VITALS: RESP 18; O2SAT 95
[2022-04-11 18:12] VITALS: BP 150/93; PULSE 78; O2SAT 99
== END 2022-04-11 18:30 | disposition home or self-care (01) ==
PROVIDERS: Nurse Practitioner Family; Emergency Provider Emergency Medicine; PCP Family Medicine
DX: K57.92 Diverticulitis of intestine, part unspecified, without perforation or abscess without bleeding (principal); N39.0 Urinary tract infection, site not specified; Z79.84 Long term (current) use of oral hypoglycemic drugs; Z79.4 Long term (current) use of insulin; E11.9 Type 2 diabetes mellitus without complications
CPT/HCPCS: 36416; 74177; 80053; 81001; 82962; 83690; 85025; 87077; 87086; 87186; 96365; 96375; 96376; 99285; J0696; J1200; J2270; J2405; J2765; J7030; J8597; Q9967

== ENCOUNTER 2022-07-19 07:17 | Outpatient (CLI) | payer BC, SELFPAY ==
[2022-07-19 08:38] LABS: Alanine Aminotransferase 9 U/L (0-33); Albumin Level 3.5 g/dL (3.5-5.2); Alkaline Phosphatase 126 U/L (35-105); Anion Gap 16.8 (5-19); Aspartate Amino Transferase 11 U/L (0-32); Blood Urea Nitrogen 15 mg/dL (8-23); Calcium 8.1 mg/dL (8.5-10.5); Carbon Dioxide 26 mmol/L (22-29); Chloride 101 mmol/L (98-107); Chol HDL Ratio 3.41 mg/dL (0.0-4.40); Cholesterol 191 mg/dL (0-200); Globulin 4.3 g/dL (1.3-4.6); Glomerular Filtration Rate 63.7 mL/min (90-130); Glucose 213 mg/dL (65-115); HDL Cholesterol 56 mg/dL (60-100); LDL Cholesterol Calculated 115 mg/dL (50-129); LDL HDL Ratio 2.05 RATIO (0.00-3.22); Osmolality Calculated 295 mOsm/kg (285-295); Potassium 4.8 mmol/L (3.5-5.1); Sodium 139 mmol/L (136-145); Total Bilirubin 0.5 mg/dL (0.15-1.2); Total Protein 7.8 g/dL (6.6-8.7); Triglycerides 102 mg/dL (0-150)
[2022-07-19 08:45] LABS: Estmated Average Glucose 237; Hemoglobin A1C 9.9 % (4.0-6.0)
== END 2022-07-19 07:18 | disposition home or self-care (01) ==
LOC: LAB 07:19
PROVIDERS: PCP Family Medicine; Visit Provider Internal Medicine
DX: E11.22 Type 2 diabetes mellitus with diabetic chronic kidney disease (principal); E78.2 Mixed hyperlipidemia; N18.30 Chronic kidney disease, stage 3 unspecified
CPT/HCPCS: 36415; 80053; 80061; 83036

== ENCOUNTER → 2022-08-16 13:54 | Outpatient (BNVA) | payer BC, SELFPAY | PROVIDERS: PCP Family Medicine; Visit Provider Internal Medicine | DX: E11.22 Type 2 diabetes mellitus with diabetic chronic kidney disease (principal); N18.30 Chronic kidney disease, stage 3 unspecified; E78.2 Mixed hyperlipidemia; E16.0 Drug-induced hypoglycemia without coma; T38.3X5A Adverse effect of insulin and oral hypoglycemic [antidiabetic] drugs, initial encounter; E66.01 Morbid (severe) obesity due to excess calories; E11.65 Type 2 diabetes mellitus with hyperglycemia | CPT/HCPCS: 36415; 80048; 84681 ==

== ENCOUNTER → 2023-01-05 15:36 | Outpatient (BNVA) | payer BC, SELFPAY | PROVIDERS: PCP Family Medicine; Visit Provider Family Medicine | DX: E11.649 Type 2 diabetes mellitus with hypoglycemia without coma (principal) | CPT/HCPCS: 80053; 82728; 83036; 83550; 85025 ==

== ENCOUNTER 2023-05-11 06:32 | Outpatient (CLI) | payer BC, SELFPAY ==
[2023-05-11 07:26] LABS: Alanine Aminotransferase 7 U/L (0-33); Albumin Level 3.6 g/dL (3.5-5.2); Alkaline Phosphatase 129 U/L (35-105); Anion Gap 14.4 (5-19); Aspartate Amino Transferase 8 U/L (0-32); Blood Urea Nitrogen 13 mg/dL (8-23); Calcium 8.9 mg/dL (8.5-10.5); Carbon Dioxide 26 mmol/L (22-29); Chloride 103 mmol/L (98-107); Chol HDL Ratio 3.32 mg/dL (0.0-4.40); Cholesterol 186 mg/dL (0-200); Globulin 4.5 g/dL (1.3-4.6); Glomerular Filtration Rate 63.4 mL/min (90-130); Glucose 100 mg/dL (65-115); HDL Cholesterol 56 mg/dL (60-100); LDL Cholesterol Calculated 106 mg/dL (50-129); LDL HDL Ratio 1.89 RATIO (0.00-3.22); Osmolality Calculated 290 mOsm/kg (285-295); Potassium 3.4 mmol/L (3.5-5.1); Sodium 140 mmol/L (136-145); Total Bilirubin 0.5 mg/dL (0.15-1.2); Total Protein 8.1 g/dL (6.6-8.7); Triglycerides 121 mg/dL (0-150)
[2023-05-11 07:30] LABS: Estmated Average Glucose 226; Hemoglobin A1C 9.5 % (4.0-6.0)
[2023-05-11 07:35] LABS: Creatinine Urine, Random 153 mg/dL (28-217); Microalbum Creatinine Ratio Ur 20 mg/dL (0-20); Microalbumin Random Urine 3 ug/dL (0-20)
== END 2023-05-11 06:33 | disposition home or self-care (01) ==
LOC: LAB 06:32
PROVIDERS: PCP Family Medicine; Visit Provider Internal Medicine
DX: E11.65 Type 2 diabetes mellitus with hyperglycemia (principal)
CPT/HCPCS: 36415; 80053; 80061; 82044; 83036

== ENCOUNTER 2023-08-06 07:24 | Outpatient (CLI) | payer BC, SELFPAY ==
[2023-08-06 08:20] LABS: Estmated Average Glucose 217; Hemoglobin A1C 9.2 % (4.0-6.0)
[2023-08-06 08:22] LABS: Creatinine Urine, Random 315 mg/dL (28-217); Microalbum Creatinine Ratio Ur 35 mg/dL (0-20); Microalbumin Random Urine 11 ug/dL (0-20)
[2023-08-06 08:27] LABS: Alanine Aminotransferase < 5 U/L (0-33); Albumin Level 3.7 g/dL (3.5-5.2); Alkaline Phosphatase 126 U/L (35-105); Anion Gap 14.4 (5-19); Aspartate Amino Transferase 8 U/L (0-32); Blood Urea Nitrogen 16 mg/dL (8-23); Calcium 8.9 mg/dL (8.5-10.5); Carbon Dioxide 27 mmol/L (22-29); Chloride 103 mmol/L (98-107); Chol HDL Ratio 3.07 mg/dL (0.0-4.40); Cholesterol 166 mg/dL (0-200); Globulin 4.4 g/dL (1.3-4.6); Glomerular Filtration Rate 56.2 mL/min (90-130); Glucose 250 mg/dL (65-115); HDL Cholesterol 54 mg/dL (60-100); LDL Cholesterol Calculated 91 mg/dL (50-129); LDL HDL Ratio 1.69 RATIO (0.00-3.22); Osmolality Calculated 300 mOsm/kg (285-295); Potassium 4.4 mmol/L (3.5-5.1); Sodium 140 mmol/L (136-145); Total Bilirubin 0.4 mg/dL (0.15-1.2); Total Protein 8.1 g/dL (6.6-8.7); Triglycerides 105 mg/dL (0-150)
== END 2023-08-06 07:25 | disposition home or self-care (01) ==
LOC: LAB 07:27
PROVIDERS: PCP Family Medicine; Visit Provider Internal Medicine
DX: E11.22 Type 2 diabetes mellitus with diabetic chronic kidney disease (principal); N18.30 Chronic kidney disease, stage 3 unspecified
CPT/HCPCS: 36415; 80053; 80061; 82044; 83036

== ENCOUNTER → 2023-08-21 18:00 | Outpatient (BNVA) | payer BC, SELFPAY | PROVIDERS: PCP Family Medicine; Visit Provider Registered Nurse Neonatal Intensive Care | DX: W19.XXXA Unspecified fall, initial encounter (principal); M25.511 Pain in right shoulder | CPT/HCPCS: 73030 ==

== ENCOUNTER → 2023-10-22 15:01 | Outpatient (BNVA) | payer BC, SELFPAY | PROVIDERS: PCP Family Medicine; Visit Provider Family Medicine | DX: F32.9 Major depressive disorder, single episode, unspecified (principal); D64.9 Anemia, unspecified; Z13.6 Encounter for screening for cardiovascular disorders; D50.9 Iron deficiency anemia, unspecified; R47.01 Aphasia | CPT/HCPCS: 82728; 83550; 85025 ==

== ENCOUNTER 2023-11-06 20:35 | Emergency (ER) | payer BC, SELFPAY ==
[2023-11-06 20:39] VITALS: BP 157/66; PULSE 70; RESP 16; TEMP 36.2; O2SAT 100; BMI 36.3
[2023-11-06] MEDS: ondansetron 2 mg/ML SDV 2 mL 4 MG IVP ×2 (20:59→23:20)
[2023-11-06] MEDS: sodium chloride 0.9% 1,000 ML 999 ML IV (21:00)
--- NOTE | 2023-11-06 21:23 | ED_ITS ---
HPI - Nausea/Vomiting/Diarrhea 2 General: Chief complaint: Nausea/Vomiting/Diarrhea Stated complaint: N/D/V X 4DAYS Time Seen by Provider: 11/06/23 20:37 History of Present Illness: Presents to the ER with complaints of nausea vomiting diarrhea since Sunday. Patient stayed at the [facility] and thinks she may have had food poisoning. Patient has been sick ever since. Patient also has some mild epigastric pain. Patient has a history of cholecystectomy and hysterectomy. Patient is unable to keep any food or fluid down at this moment. Patient is actively vomiting in ER. Patient also complains of a headache that is behind her eyes in a bandlike fashion. Patient states she has a history of migraines but has not had a migraine in 20 years and they were a little bit different than his headache. is here with the same exact complaints. Review of Systems 2 General: Reports: 10 or more systems reviewed and unremarkable except in HPI and below PFSH ED 2 PFSH: Medical History Pneumonia Vomiting Iron deficiency anemia Normal colonoscopy HX: benign breast biopsy Gastric ulcer Chronic GERD Insulin dependent diabetes mellitus Type 2 diabetes mellitus Anxiety Liver mass benign Surgical History History of colonoscopy History of esophagogastroduodenoscopy (EGD) H/O discectomy L4-L5 History of hysterectomy IGNACIO-BSO. Benign H/O arthroscopic knee surgery Left History of tubal ligation Hx of cholecystectomy Family History Father CAD (coronary artery disease) Mother CAD (coronary artery disease) Social History Smoking and tobacco/nicotine status: never used tobacco/nicotine Alcohol intake: never Substance/Drug Use: never Lives independently: Yes Household members: spouse Marital status: Physical Exam 2 Const: COMMON NORMALS: no acute distress, average body habitus, patient oriented x3, no limitations, healthy appearing, alert and well nourished HENMT: COMMON NORMALS: normocephalic, atraumatic, hearing grossly normal bilaterally, external ears normal, Normal external nose present, moist oral mucous membranes and oropharynx normal HEAD & SCALP: normocephalic and atraumatic NOSE: Normal external nose present EXTERNAL EAR: Yes external ears normal Eye: COMMON NORMALS: Equal, round and reactive pupils present, EOMs intact bilaterally, conjunctivae normal and no scleral icterus CONJUNCTIVA: Yes conjunctivae normal PUPIL: Yes Equal, round and reactive pupils present Neck/C-Spine: COMMON NORMALS: full ROM, no lymphadenopathy, supple, no meningeal signs, no JVD and Thyroid normal THYROID: Thyroid normal Chest: COMMONS NORMALS: normal inspection of the chest and normal palpation of entire chest wall Resp: COMMON NORMALS: normal respiratory effort, No retractions, No use of accessory muscles and clear to auscultation bilaterally AUSCULTATION: clear to auscultation bilaterally Cardio: COMMON NORMALS: no JVD, regular rate, regular rhythm, S1 normal heart sound present, S2 normal heart sound present, No gallops present (Cardio), No clicks present (Cardio), No murmurs present (Cardio) and No rub (Cardio) R ATE: regular rate RHYTHM: regular rhythm HEART SOUNDS: S1 normal heart sound present and S2 normal heart sound present GI: COMMON NORMALS: Normal to inspection, nondistended, normoactive bowel sounds present, Soft to palpation, No hepatosplenomegaly present and no masses; negative for non-tender (Mild epigastric tenderness) PALPATION: Yes Soft to palpation and Yes No hepatosplenomegaly present Neuro: COMMON NORMALS: patient oriented x3 SENSORIUM/ORIENTATION: Yes alert MENINGEAL SIGNS: Yes no meningeal signs Course 2 Vital Signs: Vital signs: Vital Signs Temperature 97.1 F L 11/06/23 20:39 Pulse Rate 70 11/06/23 20:39 Respiratory Rate 16 11/06/23 20:39 Blood Pressure 157/66 11/06/23 20:39 Pulse Oximetry 100 11/06/23 20:39 Oxygen Delivery Me thod Nasal Cannula 11/06/23 20:39 MDM - Nausea/Vomiting/Diarrhea Medical Decision Making Patient was given a liter normal saline and 4 mg Zofran for nausea vomiting and diarrhea, lab work was obtained glucose was 182, phosphorus 2.0, alk phos 110, respiratory panel was negative, otherwise unremarkable, patient feels much better after the normal saline and Zofran. Patient be discharged home with a prescription for Zofran to go home on. Differential Diagnosis Likely food poisoning, gastroenteritis and dehydration; Unlikely traveler's diarrhea, clostridium difficile infection or drug-induced nausea and vomiting Medical Records I reviewed the patient's medical records. Lab Data I reviewed the patient's lab results. 11/06/23 21:30 11/06/23 21:30 Laboratory Results WBC 8.72 10^3/uL (3.29-11.43) 11/06/23 21: RBC 4.29 10^6/uL (3.85-5.65) 11/06/23 21: Hgb 11.10 g/dL (11.27-16.99) L 11/06/23 21: Hct 36.0 % (36-47) 11/06/23 21: MCV 83.9 fl (85-98) L 11/06/23 21: MCH 25.9 pg (27-33) L 11/06/23 21: MCHC 30.8 g/dL (30-55) 11/06/23 21: RDW 13.8 % (12.1-15.1) 11/06/23 21: Plt Count 232 10^3/cmm (157-399) 11/06/23 21: MPV 8.8 fL (7.4-10.4) 11/06/23 21: Neut % (Auto) 71.4 % 11/06/23 21: Lymph % (Auto) 20.2 % 11/06/23 21: [place] % (Auto) 6.0 % 11/06/23 21: Eos % (Auto) 1.7 % 11/06/23: Baso % (Auto) 0.5 % 11/06/23: Neut # (Auto) 6.23 10^3/uL (1.8-7.7) 11/06/23 21: Lymph # (Auto) 1.8 10^3/uL (0.8-4.8) 11/06/23: [place] # (Auto) 0.5 10^3/uL (0.2-0.9) 11/06/23 21:30 Eos # (Auto) 0.2 10^3/uL (0.0-0.8) 11/06/23 21:30 Baso # (Auto) 0.0 10^3/uL (0.0-0.1) 11/06/23 21:30 Nucleated RBC % (auto) 0 % 11/06/23 21:30 Nucleated RBCs # 0.0 /100WBC 11/06/23 21:30 Carbon Dioxide 27 mmol/L (22-29) 11/06/23 21:30 BUN 16 mg/dL (8-23) 11/06/23 21:30 Creatinine 1.0 mg/dL (0.5-0.9) H 11/06/23 21:30 GFR Calculation 56.0 mL/min (90-130) L 11/06/23 21:30 Glucose 182 mg/dL (65-115) H 11/06/23 21:30 Calcium 8.7 mg/dL (8.5-10.5) 11/06/23 21: Phosphorus 2.0 mg/dL (2.5-4.5) L 11/06/23 21:30 Magnesium 1.8 mg/dL (1.7-2.3) 11/06/23 21:30 Total Bilirubin 0.6 mg/dL (0.15-1.2) 11/06/23 21:30 AST 8 U/L (0-32) 11/06/23 21:30 ALT 6 U/L (0-33) 11/06/23 21:30 Alkaline Phosphatase 110 U/L (35-105) H 11/06/23 21:30 Total Protein 7.6 g/dL (6.6-8.7) 11/06/23 21:30 Albumin 3.5 g/dL (3.5-5.2) 11/06/23 21:30 Globulin 4.1 g/dL (1.3-4.6) 11/06/23 21:30 Lipase 9 U/L (13-60) L 11/06/23 21:30 Adenovirus (PCR) Not detected (NOT DETECT) 11/06/23 21:47 C. pneumoniae DNA (PCR) Not detected (NOT DETECT) 11/06/23 21:47 Coronavirus 229E (PCR) Not detected (NOT DETECT) 11/06/23 21:47 Human Metapneumovir PCR Not detected (NOT DETECT) 11/06/23 21:47 Influenza A (H1) PCR Not detected (NOT DETECT) 11/06/23 21:47 Influ A (H1/09) PCR Not detected (NOT DETECT) 11/06/23 21:47 Influenza A (H3) PCR Not detected (NOT DETECT) 11/06/23 21:47 Influenza Type A (PCR) Not detected (NOT DETECT) 11/06/23 21:47 Influenza Type B (PCR) Not detected (NOT DETECT) 11/06/23 21:47 M. pneumoniae (PCR) Not detected (NOT DETECT) 11/06/23 21:47 Parainfluenza 1 (PCR) Not detected (NOT DETECT) 11/06/23 21:47 Parainfluenza 2 (PCR) Not detected (NOT DETECT) 11/06/23 21:47 Parainfluenza 3 (PCR) Not detected (NOT DETECT) 11/06/23 21:47 Parainfluenza 4 (PCR) Not detected (NOT DETECT) 11/06/23 21:47 RSV Type A (PCR) Not detected (NOT DETECT) 11/06/23 21:47 RSV Type B (PCR) Not detected (NOT DETECT) 11/06/23 21:47 Entero/Rhino (PCR) Not detected (NOT DETECT) 11/06/23 21:47 SARS-CoV-2 (PCR) Not detected (NOT DETECT) 11/06/23 21:47 All radiology interpretation(s) finalized by discharge Discharge Plan Discharge Patient Disposition: Home Clinical Impression: Gastroenteritis Condition: Stable Prescriptions: New ondansetron HCl 4 mg tablet 4 mg PO Q8H PRN (Reason: nausea and vomiting) Qty: 14 0RF No Action aripiprazole [Abilify] 2 mg tablet 2 mg PO DAILY Qty: 30 1RF insulin glargine [Lantus Solostar U-100 Insulin] 100 unit/mL (3 mL) insulin pen 45 unit SUBCUT DAILY Qty: 90 0RF buspirone 5 mg tablet 5 mg PO TID Qty: 270 1RF duloxetine 60 mg capsule,delayed release(DR/EC) 60 mg PO DAILY Qty: 90 0RF cyclobenzaprine 5 mg tablet 5 mg PO TID PRN (Reason: muscle spasm) Qty: 20 0RF Trulicity 4.5 mg/0.5 mL pen injector 4.5 mg SUBCUT Q7D Qty: 2 5RF Rx Instructions: INJECT 4.5mg weekly rosuvastatin 10 mg tablet See Rx Instructions .ROUTE .COMPLEX Qty: 90 0RF Dose Instruction: TAKE 1 TABLET BY MOUTH EVERYDAY AT BEDTIME Rx Instructions: TAKE 1 TABLET BY MOUTH EVERYDAY AT BEDTIME omeprazole 40 mg Capsule,Delayed Release(Dr/Ec) 40 mg PO DAILY ferrous sulfate [iron] 325 mg (65 mg iron) Tablet 325 mg PO DAILY Discharge Orders: Discharge ED (Routine); Ordered 11/06/23 Ordered By: Mariano Coon Referrals: Mila Garzon DO [Primary Care Provider] - 1 week Patient Instructions: Gastroenteritis (ED) Activity Restrictions/Additional Instructions: Your evaluation in ER did not show any acute cause of your nausea vomiting diarrhea, it is felt to be viral in nature. A prescription for Zofran has been sent to your pharmacy. Please take it as directed and follow-up with your family practice physician within the next 7 days for further evaluation and treatment. Coding Level of Care Code ED Stock Patch Sawyer for Fang Lewis
[2023-11-06 21:40] LABS: Basophils % 0.5 %; Eosinophils # 0.2 10^3/uL (0.0-0.8); Eosinophils % 1.7 %; Lymphocytes # 1.8 10^3/uL (0.8-4.8); Lymphocytes % 20.2 %; Mean Corpuscular HGB Conc 30.8 g/dL (30-55); Mean Corpuscular Hemoglobin 25.9 pg (27-33); Mean Corpuscular Volume 83.9 fl (85-98); Mean Platelet Volume 8.8 fL (7.4-10.4); Monocytes # 0.5 10^3/uL (0.2-0.9); Neutrophils # 6.23 10^3/uL (1.8-7.7); Neutrophils % 71.4 %; Nucleated Red Blood Cells % 0 %; Platelet Count 232 10^3/cmm (157-399); Red Blood Count 4.29 10^6/uL (3.85-5.65); Red Cell Distribution Width 13.8 % (12.1-15.1); White Blood Count 8.72 10^3/uL (3.29-11.43)
[2023-11-06 21:59] LABS: Alanine Aminotransferase 6 U/L (0-33); Albumin Level 3.5 g/dL (3.5-5.2); Alkaline Phosphatase 110 U/L (35-105); Aspartate Amino Transferase 8 U/L (0-32); Blood Urea Nitrogen 16 mg/dL (8-23); Calcium 8.7 mg/dL (8.5-10.5); Carbon Dioxide 27 mmol/L (22-29); Creatinine Clr Calc Pharmacy 69.4526; Globulin 4.1 g/dL (1.3-4.6); Glucose 182 mg/dL (65-115); Lipase 9 U/L (13-60); Magnesium 1.8 mg/dL (1.7-2.3); Total Bilirubin 0.6 mg/dL (0.15-1.2); Total Protein 7.6 g/dL (6.6-8.7)
--- NOTE | 2023-11-06 22:39 | XRR_ITS ---
PROCEDURE INFORMATION: Exam: XR Chest Exam date and time: 11/06/2023 10:44 PM Age: 63 years old Clinical indication: Dyspnea TECHNIQUE: Imaging protocol: Radiologic exam of the chest. Views: 1 view. COMPARISON: CR XR chest 1V portable [id number] 11/01/2021 5:18 AM FINDINGS: Lungs: No focal lung consolidation. Pleural spaces: No pleural effusion. No pneumothorax. Heart/Mediastinum: No cardiomegaly. Bones/joints: No acute bony abnormality. XR/XR chest 1V portable [id number] IMPRESSION: No focal lung consolidation.
[2023-11-06 23:38] LABS: Adenovirus Not Detected (NOT DETECT); Chlamydia Pneumoniae Not Detected (NOT DETECT); Coronavirus 229E,HKU1,NL63,OC4 Not Detected (NOT DETECT); Human Metapneumovirus Not Detected (NOT DETECT); Human Rhinovirus/Enterovirus Not Detected (NOT DETECT); Influenza A Not Detected (NOT DETECT); Influenza A H1 Not Detected (NOT DETECT); Influenza A H1-2009 Not Detected (NOT DETECT); Influenza A H3 Not Detected (NOT DETECT); Influenza B Not Detected (NOT DETECT); Mycoplasma Pneumoniae Not Detected (NOT DETECT); Parainfluenza Virus Type 1 Not Detected (NOT DETECT); Parainfluenza Virus Type 2 Not Detected (NOT DETECT); Parainfluenza Virus Type 3 Not Detected (NOT DETECT); Parainfluenza Virus Type 4 Not Detected (NOT DETECT); Respiratory Syncytial Virus A Not Detected (NOT DETECT); Respiratory Syncytial Virus B Not Detected (NOT DETECT); SARS-COV-2 Not Detected (NOT DETECT)
[2023-11-07 00:05] LABS: Anion Gap 14.9 (5-19); Chloride 103 mmol/L (98-107); Osmolality Calculated 300 mOsm/kg (285-295); Sodium 142 mmol/L (136-145)
[2023-11-07 00:08] VITALS: BP 157/66; PULSE 70; RESP 16; TEMP 36.2; O2SAT 100
[2023-11-07 00:08] LABS: Potassium 2.9 mmol/L (3.5-5.1)
== END 2023-11-07 00:09 | disposition home or self-care (01) ==
PROVIDERS: Emergency Provider Emergency Medicine; PCP Family Medicine
DX: K52.9 Noninfective gastroenteritis and colitis, unspecified (principal); Z79.85 Long-term (current) use of injectable non-insulin antidiabetic drugs; Z79.4 Long term (current) use of insulin; Z11.52 Encounter for screening for COVID-19; E11.9 Type 2 diabetes mellitus without complications
CPT/HCPCS: 36415; 71045; 80053; 83690; 83735; 84100; 85025; 87486; 87581; 87633; 96361; 96374; 96375; 99284; J2405; J7030

== ENCOUNTER 2023-11-19 06:22 | Outpatient (CLI) | payer BC, SELFPAY ==
[2023-11-19 07:14] LABS: Alanine Aminotransferase < 5 U/L (0-33); Albumin Level 3.8 g/dL (3.5-5.2); Alkaline Phosphatase 124 U/L (35-105); Anion Gap 18.9 (5-19); Aspartate Amino Transferase 8 U/L (0-32); Blood Urea Nitrogen 17 mg/dL (8-23); Calcium 8.9 mg/dL (8.5-10.5); Carbon Dioxide 24 mmol/L (22-29); Chloride 101 mmol/L (98-107); Chol HDL Ratio 3.36 mg/dL (0.0-4.40); Cholesterol 205 mg/dL (0-200); Globulin 4.5 g/dL (1.3-4.6); Glomerular Filtration Rate 63.2 mL/min (90-130); Glucose 146 mg/dL (65-115); HDL Cholesterol 61 mg/dL (60-100); LDL Cholesterol Calculated 122 mg/dL (50-129); Osmolality Calculated 294 mOsm/kg (285-295); Potassium 3.9 mmol/L (3.5-5.1); Sodium 140 mmol/L (136-145); Total Bilirubin 0.5 mg/dL (0.15-1.2); Total Protein 8.3 g/dL (6.6-8.7); Triglycerides 111 mg/dL (0-150)
[2023-11-19 08:18] LABS: Estmated Average Glucose 214; Hemoglobin A1C 9.1 % (4.0-6.0)
[2023-11-19 08:37] LABS: Creatinine Urine, Random 172 mg/dL (28-217); Microalbum Creatinine Ratio Ur 29 mg/dL (0-20); Microalbumin Random Urine 5 ug/dL (0-20)
== END 2023-11-19 06:23 | disposition home or self-care (01) ==
PROVIDERS: PCP Family Medicine; Visit Provider Internal Medicine
DX: E78.2 Mixed hyperlipidemia (principal); E11.649 Type 2 diabetes mellitus with hypoglycemia without coma
CPT/HCPCS: 36415; 80053; 80061; 82044; 83036

== ENCOUNTER 2024-03-28 07:59 | Emergency (ER) | payer BC, SELFPAY ==
[2024-03-28 08:02] VITALS: BP 137/76; PULSE 86; RESP 18; TEMP 36.5; O2SAT 100; BMI 32.3
--- NOTE | 2024-03-28 08:07 | XR_ITS ---
WS: [email or web address] Exam: XR shoulder LT min 2V* [id number] Date/Time of Exam: 03/28/2024 8:12 AM Reason For Exam: trauma; get humerus between elbow/shoulder XRs No acute fracture. The joints are preserved. Normal soft tissues. XR/XR shoulder LT min 2V* [id number] IMPRESSION: 1. No acute fracture.
--- NOTE | 2024-03-28 08:07 | XR_ITS ---
WS: [email or web address] Exam: XR shoulder RT min 2V* [id number] Date/Time of Exam: 03/28/2024 8:12 AM Reason For Exam: trauma Comparison 08/21/2023. No acute fracture. Mild degenerative change at the glenohumeral joint and AC joint. Soft tissue calci fication along the humeral head which may indicate calcific bursitis and/or tendinitis. XR/XR shoulder RT min 2V* [id number] IMPRESSION: 1. No acute fracture. 2. Mild degenerative change. Possible calcific tendinitis and/or bursitis.
--- NOTE | 2024-03-28 08:07 | XR_ITS ---
WS: [email or web address] Exam: XR elbow LT min 3V* [id number] Date/Time of Exam: 03/28/2024 8:12 AM Reason For Exam: fall/trauma; get humerus between elbow/shoulder There appears to be a nondisplaced fracture of the lateral margin of the radial head. No other fractu res are identified. Questionable small joint effusion. 8 mm and 2 mm opacities seen in the posterior soft tissues along the proximal ulna. These may be foreign bodies. XR/XR elbow LT min 3V* [id number] IMPRESSION: 1. Findings suspicious for nondisplaced fracture of the lateral margin of the r adial head. Possible small joint effusion. 2. 2 small soft tissue opacities seen along the posterior aspect of the ulna wh ich may represent soft tissue foreign bodies.
--- NOTE | 2024-03-28 08:07 | ED_ITS ---
HPI - Fall General: Chief Complaint: Fall Stated Complaint: FALL Time Seen by Provider: 03/28/24 08:02 Source: patient Mode of arrival: EMS Limitations: no limitations History of Present Illness: Patient is a 63-year-old female who presents to ED today via EMS for evaluation following a fall. Patient states prior to arrival she accidentally tripped over some carpet. She denies striking her head or LOC. She arrives to the ED today complaining of neck pain, bilateral shoulder pain, left elbow pain, right knee pain, and states she feels sore all over . She is not on anticoagulation. complaint: fall Onset (ago): hour(s) Fall from: standing Fall witnessed: no Place fall occurred: home Loss of consciousness: None Prolonged down time: no Symptoms prior to fall: none Context: tripped/slipped Location of injury: neck Location of injury - extremities: Left: elbow and Bilateral: shoulder Associated symptoms-after fall: Reports no associated symptoms and neck pain; Denies abdominal pain, chest pain, headache(s), hematuria or lightheadedness Related Data Home Medications Medication Instructions Recorded Confirmed omeprazole 40 mg capsule,delayed 40 mg PO DAILY 07/08/19 03/28/24 release duloxetine 60 mg capsule,delayed 60 mg PO DAILY 03/28/24 03/28/24 release rosuvastatin 10 mg tablet 10 mg PO QPM 03/28/24 03/28/24 Previous Rx's Medication Instructions Recorded dulaglutide 4.5 mg/0.5 mL 4.5 mg (0.5 mL) SUBCUT Q7D #2 mL 10/24/23 subcutaneous pen injector (Trulicity) insulin glargine 100 unit/mL (3 45 unit (0.45 mL) SUBCUT DAILY #90 11/01/23 mL) subcutaneous pen (Lantus mL Solostar U-100 Insulin) insulin aspart U-100 100 unit/mL 10 unit (0.1 mL) SUBCUT TID #27 mL 11/27/23 (3 mL) subcutaneous pen (Novolog FlexPen U-100 Insulin aspart) blood-glucose sensor (Dexcom G7 #9 ea 11/30/23 Sensor device) blood-glucose meter,continuous #1 ea 02/05/24 (Dexcom G7 Warehouse Processor) hydrocodone 5 mg-acetaminophen 325 1 tab PO Q6H PRN pain #14 tabs 03/28/24 mg tablet ondansetron 4 mg disintegrating 4 mg PO Q8H PRN nausea and 03/28/24 tablet vomiting #14 tabs Allergies Allergy/AdvReac Type Severity Reaction Status Date / Time insulin detemir Allergy Intermediate ALGY-Swell Verified 02/06/24 07:25 [From Levemir U-100 Insulin] Lip/Tongue/Throat acetaminophen [From Percocet] Allergy ADR-Nausea Verified 02/06/24 07:25 atorvastatin Allergy bad Verified 02/06/24 07:25 diarrhea empagliflozin Allergy Unknown Verified 02/06/24 07:25 [From Jardiance] etodolac Allergy Unknown Verified 02/06/24 07:25 liraglutide [From Victoza] Allergy severe Verified 02/06/24 07:25 burps and gas nabumetone [From Relafen] Allergy ADR-Nausea Verified 02/06/24 07:25 oxycodone [From Percocet] Allergy ADR-Nausea Verified 02/06/24 07:25 prochlorperazine Allergy ADR/ALGY-Pa Verified 02/06/24 07:25 [From Compazine] lpitations topiramate [From Topamax] Allergy ADR-Agitate Verified 02/06/24 07:25 d triamcinolone [From Nasacort] Allergy ADR-Nausea Verified 02/08/24 10:53 Review of Systems Eyes: Denies: change in vision, blurry vision, photophobia, eye discharge, floaters or seeing flashes ENMT: Denies: throat pain, odynophagia, ear or mastoid pain, ear discharge, nasal discharge, epistaxis or sinus pain Card: Denies: chest pain, palpitations, lightheadedness, syncope or pre- syncope Resp: Denies: dyspnea or pain on inspiration GI: Denies: abdominal pain : Denies: flank pain or hematuria Musc: Reports: neck pain, joint pain and limited range of motion; Denies: back pain, extremity pain or extremity swelling Neuro: Denies: headache(s), numbness in extremities, weakness in extremities, sensory changes or dizziness PFSH ED PFSH: Medical History Pneumonia Vomiting Iron deficiency anemia Normal colonoscopy HX: benign breast biopsy Gastric ulcer Chronic GERD Insulin dependent diabetes mellitus Type 2 diabetes mellitus Anxiety Liver mass benign Surgical History History of colonoscopy History of esophagogastroduodenoscopy (EGD) H/O discectomy L4-L5 History of hysterectomy IGNACIO-BSO. Benign H/O arthroscopic knee surgery Left History of tubal ligation Hx of cholecystectomy Family History Father CAD (coronary artery disease) Mother CAD (coronary artery disease) Social History Smoking and tobacco/nicotine status: never used tobacco/nicotine Alcohol intake: former Substance/Drug Use: never Adopted: No Lives independently: Yes Household members: spouse Marital status: service: No Current occupational exposures/hazards: No Physical Exam Const: COMMON NORMALS: no acute distress, average body habitus, patient oriented x3, no limitations, healthy appearing, alert and well nourished GENERAL APPEARANCE: cooperative ORIENTATION/CONSCIOUSNESS: Yes awake, Yes oriented to person, Yes oriented to place and Yes oriented to time HENMT: COMMON NORMALS: normocephalic, atraumatic and TM's normal bilaterally HEAD & SCALP: normal to inspection, normocephalic and atraumatic; no Lee's sign, no hematoma and no raccoon eyes FACE & SINUS: normal facial exam TYMPANIC MEMBRANE: TM's normal bilaterally MOUTH: other (no intraoral injuries noted) Eye: COMMON NORMALS: Equal, round and reactive pupils present and EOMs intact bilaterally GENERAL EYE: appearance normal, both eyes and all related structures and normal light reflex PUPIL: Yes Equal, round and reactive pupils present DIRECT OPHTHALMOSCOPY: Yes normal light reflex Neck/C-Spine: COMMON NORMALS: full ROM GENERAL: Yes normal visual inspection CERVICAL SPINE: Yes cervical ROM normal, No pain with cervical ROM, Yes Cervical spine tenderness (minor-lower C spine), No step off deformity and No Paracervical muscle tenderness Chest: COMMONS NORMALS: normal inspection of the chest and normal palpation of entire chest wall Resp: COMMON NORMALS: normal respiratory effort and clear to auscultation bilaterally AUSCULTATION: clear to auscultation bilaterally Cardio: COMMON NORMALS: regular rate and regular rhythm RATE: regular rate RHYTHM: regular rhythm GI: COMMON NORMALS: Normal to inspection, nondistended, normoactive bowel sounds present, Soft to palpation, non-tender, No hepatosplenomegaly present and no masses INSPECTION: Yes normal to inspection and No abdominal wall ecchymosis AUSCULTATION: Yes normoactive bowel sounds PALPATION: Yes Soft to palpation and Yes No hepatosplenomegaly present Back/Pelvis: COMMON NORMALS: thoracic and lumbar spine normal to inspection, no thoracic nor lumbar tenderness and thoraco-lumbar ROM normal Extremity: GENERAL: Yes normal exam except as noted RIGHT UPPER EXTREMITY: Yes shoulder joint Right shoulder: Yes Right shoulder joint ROM exam (fairly good ROM but reports pain) and Yes Right shoulder joint neurovascular exam (normal) LEFT UPPER EXTREMITY: Yes shoulder joint Left shoulder joint: Yes ROM (no ROM due to discomfort) and Yes neurovascular exam (normal) and Yes elbow joint Left elbow: Yes ROM (no ROM due to pain) and Yes neurovascular exam (normal) Neuro: GLYNN COMA SCALE: document GCS findings [place] coma scale eye opening: Spontaneous [place] coma scale verbal response: Orientated [place] coma scale motor response: Obey commands [place] coma scale total score: 15 COMMON NORMALS: patient oriented x3, CN's II-XII intact bilaterally, moves all extremities, no focal motor deficits and no sensory deficits noted SENSORIUM/ORIENTATION: Yes alert, Yes oriented to person, Yes oriented to place and Yes oriented to time SPEECH: speech normal GAIT: Yes Normal gait present Skin: COMMON NORMALS: no rashes or lesions noted GENERAL SKIN EXAM: no rashes or lesions noted TRAUMA: no lacerations or abrasions Course Vital Signs: Vital signs: Vital Signs Temperature 97.7 F 03/28/24 08:02 Pulse Rate 86 03/28/24 08:02 Respiratory Rate 16 03/28/24 08:52 Blood Pressure 137/76 03/28/24 08:02 Pulse Oximetry 100 03/28/24 08:02 Oxygen Delivery Me thod Room Air 03/28/24 08:02 MDM - Fall Medical Decision Making XRs showing a left radial head fracture. Will sling and have her follow up with ortho. Medical Records I reviewed the patient's medical records. Lab Data I reviewed the patient's lab results. Radiology Impressions Cervical Spine X-Ray 03/28/24 08:07 IMPRESSION: 1. Moderate degenerative change. No fracture. Elbow X-Ray 03/28/24 08:07 IMPRESSION: 1. Findings suspicious for nondisplaced fracture of the lateral margin of the radial head. Possible small joint effusion. 2. 2 small soft tissue opacities seen along the posterior aspect of the ulna which may represent soft tissue foreign bodies. Knee X-Ray 03/28/24 08:07 IMPRESSION: 1. No acute fracture. Shoulder X-Ray 03/28/24 08:07 IMPRESSION: 1. No acute fracture. 2. Mild degenerative change. Possible calcific tendinitis and/or bursitis. All radiology interpretation(s) finalized by discharge Discharge Plan Discharge Patient Disposition: Home Clinical Impression: Fall on same level from tripping, Closed fracture of head of left radius Condition: Stable Prescriptions: New hydrocodone-acetaminophen 5-325 mg tablet 1 tab PO Q6H PRN (Reason: pain) Qty: 14 0RF ondansetron 4 mg tablet,disintegrating 4 mg PO Q8H PRN (Reason: nausea and vomiting) Qty: 14 0RF No Action insulin aspart U-100 [Novolog FlexPen U-100 Insulin] 100 unit/mL (3 mL) insulin pen 10 unit SUBCUT TID Qty: 27 1RF insulin glargine [Lantus Solostar U-100 Insulin] 100 unit/mL (3 mL) insulin pen 45 unit SUBCUT DAILY Qty: 90 0RF Trulicity 4.5 mg/0.5 mL pen injector 4.5 mg SUBCUT Q7D Qty: 2 5RF Rx Instructions: INJECT 4.5mg weekly (DME) Dexcom G7 Sensor Device See Rx Instructions .Route Qty: 9 1RF Rx Instructions: As directed (DME) Dexcom G7 Warehouse Processor Misc See Rx Instructions .ROUTE .COMPLEX Qty: 1 0RF Dose Instruction: DIRECTED Rx Instructions: DIRECTED omeprazole 40 mg Capsule,Delayed Release(Dr/Ec) 40 mg PO DAILY rosuvastatin 10 mg tablet 10 mg PO QPM duloxetine 60 mg capsule,delayed release(DR/EC) 60 mg PO DAILY Discharge Orders: Discharge ED (Routine); Ordered 03/28/24 Ordered By: Lynn Alejandro Referrals: Dorothy Christine, [employer] ADMINISTRATOR [Primary Care Provider] - Patient Instructions: Elbow Fracture (DC), Opioid Safety, Pain Management Activity Restrictions/Additional Instructions: You need to stay in your sling at all times apart from showering or bathing. Case management should contact you shortly to help set you up with your follow- up appointment with orthopedics. You may take your pain medication sparingly for severe pain. I have also given you nausea medications to help if you get nauseous with the pain medication. Coding Level of Care Code ED Unit Leader for Fang Lewis
--- NOTE | 2024-03-28 08:07 | XR_ITS ---
WS: [id number] Exam: XR knee RT 3V* [id number] Date/Time of Exam: 03/28/2024 8:12 AM Reason For Exam: trauma/fall No fracture or dislocation. No joint effusion. The joints are preserved. XR/XR knee RT 3V* [id number] IMPRESSION: 1. No acute fracture.
--- NOTE | 2024-03-28 08:07 | XR_ITS ---
WS: [id number] Exam: XR cervical spine 3V* [id number] Date/Time of Exam: 03/28/2024 8:11 AM Reason For Exam: fall No acute fracture. Mild degenerative anterolisthesis of C4 on C5. Mild spondylosis. Degenerative disc narrowing at C3-4, C4-5, and C5-6. Mild facet DJD at all levels. The odontoid is intact. XR/XR cervical spine 3V* [id number] IMPRESSION: 1. Moderate degenerative change. No fracture.
[2024-03-28] MEDS: ondansetron 2 mg/ML SDV 2 mL 4 MG IM (08:50)
[2024-03-28 08:52] VITALS: RESP 16
[2024-03-28] MEDS: morphine 4 mg/mL SDV 1 mL IM (08:52)
[2024-03-28] MEDS: HYDROcodone-acetaminophen 5-325 mg Tablet 1 TAB PO (10:02)
[2024-03-28 10:03] VITALS: BP 158/95; PULSE 74; O2SAT 95
--- NOTE | 2024-03-31 07:18 | DCPLANNER ---
messaged ortho for er f/u
== END 2024-03-28 10:11 | disposition home or self-care (01) ==
PROVIDERS: Emergency Provider Physician Assistant
DX: S52.122A Displaced fracture of head of left radius, initial encounter for closed fracture (principal); W01.0XXA Fall on same level from slipping, tripping and stumbling without subsequent striking against object, initial encounter; Z79.4 Long term (current) use of insulin; Z79.85 Long-term (current) use of injectable non-insulin antidiabetic drugs; E11.9 Type 2 diabetes mellitus without complications
CPT/HCPCS: 72040; 73030; 73080; 73562; 96372; 99284; J2270; J2405

== ENCOUNTER 2024-04-04 13:46 | Emergency (ER) | payer OTHER, SELFPAY ==
[2024-04-04 13:54] VITALS: BP 151/75; PULSE 96; RESP 18; TEMP 36.3; O2SAT 99
--- NOTE | 2024-04-04 13:55 | PC.PHAR ---
patient was discharged from hospital 03/28, went to doctors office this morning stating the same issue was there and hadn't heard from anyone regarding the referral she was supposed to have. So now she has been told to be seen again
--- NOTE | 2024-04-04 14:25 | CT_ITS ---
WS: [id number] CT HEAD NONCONTRAST HISTORY: fall TECHNIQUE: Contiguous axial imaging performed through the brain. Bone and soft tissue windows. Sagitt al and coronal reformats reviewed. All CT scans at [facility] use at least one of these dose optimization techniques: automated exposure control; mA and/or kV adjustment per patient size (includ es targeted exams where dose is matched to clinical indication); or iterative reconstruction. DLP: 2149.32 mGy.cm COMPARISON: CT 05/21/2017 No acute intracranial hemorrhage, midline shift or mass effect. Moderate atrophy and small vessel ischemic disease. Prior lacunar infarct in the LEFT caudate and in the white matter adjacent to the LEFT lateral ventricle. Ventricles: Normal size with no hydrocephalus. No inferior displacement of the cerebellar tonsils. Paranasal sinuses: As visualized are clear. Mastoid air cells: Well pneumatized. Calvarium and scalp: Skull is intact with no soft tissue edema or swelling. CT/CT head wo con* [id number] IMPRESSION: 1. No acute intracranial hemorrhage or edema. 2. Progression of cerebral atrophy and small vessel disease since 2018. 3. Chronic lacunar infarct in the LEFT caudate with an adjacent lacunar infarc t in the LEFT smith radiata. These infarcts are not acute but new since 2018. 4. No skull fracture.
--- NOTE | 2024-04-04 14:25 | CT_ITS ---
WS: [id number] CT CERVICAL SPINE HISTORY: fall TECHNIQUE: Contiguous 2.0 mm axial imaging performed through the entire cervical spine. Sagittal and coronal reformats also performed. All CT scans at [facility] use at least one of these dose o ptimization techniques: automated exposure control; mA and/or kV adjustment per patient size (include s targeted exams where dose is matched to clinical indication); or iterative reconstruction. DLP: 2149.32 mGy.cm COMPARISON: 05/21/2017 Normal posterior cervical alignment. Disc spaces are mildly narrowed with endplate osteophytes. No fr actures. Craniocervical junction is normal. The odontoid is intact. C2-C3: Mild LEFT foraminal stenosis due to vertebral osteophyte. C3-C4: Moderate osteophytic ridging encroaching upon the ventral thecal sac. Mild central and RIGHT f oraminal stenosis. Moderate LEFT foraminal stenosis. C4-C5: Osteophytic ridging with facet joint arthritis. Mild LEFT foraminal stenosis and facet arthrop athy. C5-C6: Moderate osteophytic ridging encroaching upon the ventral thecal sac. Mild central with modera te bilateral foraminal stenosis and facet arthropathy. C6-C7: Osteophytic ridging. Mild foraminal stenosis. C7-T1: Normal. Small cervical chain lymph nodes. CT/CT cervical spin wo con* [id number] IMPRESSION: 1. No acute cervical spine fracture. 2. Cervical osteophytes and facet joint arthritis resulting in central and for aminal stenosis as above.
--- NOTE | 2024-04-04 14:26 | ED_ITS ---
HPI - Nausea/Vomiting/Diarrhea 2 General: Chief complaint: Nausea/Vomiting/Diarrhea Stated complaint: vomitting everyday since fall 7 days ago Time Seen by Provider: 04/04/24 14:17 Source: patient and family Mode of arrival: ambulatory Limitations: no limitations History of Present Illness: Patient is a 63-year-old female presents to ED today with a complaint of nausea and vomiting. Patient states she has vomited several times daily over the past week or so. She feels like symptoms may have started following a fall. I saw patient personally following her fall about a week ago. She tripped over concrete at that time. She sustained a fracture to her left elbow. Case management referral was placed for follow-up with orthopedics. On that visit, patient tells me she did not strike her head. She did have x-rays of her cervical spine performed which were negative. Patient states she is having some abdominal discomfort today. She is not having any diarrhea. She states she has felt feverish. She states she feels sore all over from the fall. She is having a little bit of a headache and some neck soreness. Vital signs are stable upon arrival. She had been taking her hydrocodone for pain. She does not feel like this pain medication made her nauseous. MD elicited complaint: nausea and vomiting Onset (ago): day(s) Associated nausea: Yes Associated abdominal pain: Yes Location of pain: Other (upper abdomen) Pain consistency: intermittent Severity: mild Exacerbating factors: eating Relieving factors: none Associated symtoms: Reports no associated symptoms, headache(s) and nausea; Denies change in vision, chest pain, dizziness, dysuria, fatigue, malaise, palpitations or syncope Related Data Home Medications Medication Instructions Recorded Confirmed omeprazole 40 mg capsule,delayed 40 mg PO DAILY 07/08/19 04/04/24 release Previous Rx's Medication Instructions Recorded dulaglutide 4.5 mg/0.5 mL 4.5 mg (0.5 mL) SUBCUT Q7D #2 mL 10/24/23 subcutaneous pen injector (Trulicity) insulin glargine 100 unit/mL (3 45 unit (0.45 mL) SUBCUT DAILY #90 11/01/23 mL) subcutaneous pen (Lantus mL Solostar U-100 Insulin) insulin aspart U-100 100 unit/mL 10 unit (0.1 mL) SUBCUT TID #27 mL 11/27/23 (3 mL) subcutaneous pen (Novolog FlexPen U-100 Insulin aspart) blood-glucose sensor (Dexcom G7 #9 ea 11/30/23 Sensor device) blood-glucose meter,continuous #1 ea 02/05/24 (Dexcom G7 Air Export Agent) hydrocodone 5 mg-acetaminophen 325 1 tab PO Q6H PRN pain #14 tabs 03/28/24 mg tablet duloxetine 60 mg capsule,delayed 60 mg PO DAILY #90 caps 04/02/24 release rosuvastatin 10 mg tablet 10 mg PO QPM #30 tabs 04/02/24 ondansetron 4 mg disintegrating 4 mg PO Q8H PRN nausea and 04/04/24 tablet vomiting #14 tabs sulfamethoxazole 800 1 tab PO BID 7 days #14 tabs 04/04/24 mg-trimethoprim 160 mg tablet (Bactrim DS) Allergies Allergy/AdvReac Type Severity Reaction Status Date / Time insulin detemir Allergy Intermediate ALGY-Swell Verified 04/04/24 14:00 [From Levemir U-100 Insulin] Lip/Tongue/Throat acetaminophen [From Percocet] Allergy ADR-Nausea Verified 04/04/24 14:00 atorvastatin Allergy bad Verified 04/04/24 14:00 diarrhea empagliflozin Allergy Unknown Verified 04/04/24 14:00 [From Jardiance] etodolac Allergy Unknown Verified 04/04/24 14:00 liraglutide [From Victoza] Allergy severe Verified 04/04/24 14:00 burps and gas nabumetone [From Relafen] Allergy ADR-Nausea Verified 04/04/24 14:00 oxycodone [From Percocet] Allergy ADR-Nausea Verified 04/04/24 14:00 prochlorperazine Allergy ADR/ALGY-Pa Verified 04/04/24 14:00 [From Compazine] lpitations topiramate [From Topamax] Allergy ADR-Agitate Verified 04/04/24 14:00 d triamcinolone [From Nasacort] Allergy ADR-Nausea Verified 04/04/24 14:00 Review of Systems 2 Const: Reports: fever(s) (subjective); Denies: chills, body aches, fatigue or malaise Eyes: Denies: change in vision or blurry vision Card: Denies: chest pain, palpitations, irregular heart rhythm, lightheadedness, syncope or dyspnea on exertion Resp: Denies: dyspnea, productive cough or pain on inspiration GI: Reports: abdominal pain, nausea and vomiting; Denies: hematemesis, diarrhea, constipation or change in bowel habits : Denies: flank pain, difficulty voiding, dysuria, urinary frequency, urinary urgency or urinary hesitancy Musc: Reports: neck pain, joint pain (L elbow-known fracture) and other (states she feels sore all over from her recent fall); Denies: back pain Skin/Breast: Denies: rash Neuro: Reports: headache(s); Denies: numbness in extremities, weakness in extremities, sensory changes, lack of coordination, difficulty walking, frequent falls, dizziness, vertigo, confusion, behavioral changes, Slurred speech present, difficulty communicating thoughts or seizure-like activity PFSH ED 2 PFSH: Medical History Pneumonia Vomiting Iron deficiency anemia Normal colonoscopy HX: benign breast biopsy Gastric ulcer Chronic GERD Insulin dependent diabetes mellitus Type 2 diabetes mellitus Anxiety Liver mass benign Surgical History History of colonoscopy History of esophagogastroduodenoscopy (EGD) H/O discectomy L4-L5 History of hysterectomy IGNACIO-BSO. Benign H/O arthroscopic knee surgery Left History of tubal ligation Hx of cholecystectomy Family History Father CAD (coronary artery disease) Mother CAD (coronary artery disease) Social History Smoking and tobacco/nicotine status: never used tobacco/nicotine Alcohol intake: former Substance/Drug Use: never Adopted: No Lives independently: Yes Household members: spouse Marital status: service: No Current occupational exposures/hazards: No Physical Exam 2 Const: COMMON NORMALS: no acute distress, patient oriented x3, no limitations, alert and well nourished GENERAL APPEARANCE: cooperative O RIENTATION/CONSCIOUSNESS: Yes awake, Yes oriented to person, Yes oriented to place and Yes oriented to time HENMT: COMMON NORMALS: normocephalic and atraumatic HEAD & SCALP: normal to inspection, normocephalic and atraumatic FACE & SINUS: sinuses nontender and face symmetric Eye: GENERAL EYE: appearance normal, both eyes and all related structures and normal light reflex DIRECT OPHTHALMOSCOPY: Yes normal light reflex Neck/C-Spine: COMMON NORMALS: full ROM, no lymphadenopathy, supple and no meningeal signs CERVICAL SPINE: Yes pain with cervical ROM (states it feels sore) Chest: COMMONS NORMALS: normal inspection of the chest Resp: COMMON NORMALS: normal respiratory effort and clear to auscultation bilaterally AUSCULTATION: clear to auscultation bilaterally Cardio: COMMON NORMALS: regular rate and regular rhythm RATE: regular rate RHYTHM: regular rhythm GI: COMMON NORMALS: Normal to inspection, nondistended, normoactive bowel sounds present, Soft to palpation, No hepatosplenomegaly present and no masses INSPECTION: Yes normal to inspection AUSCULTATION: Yes normoactive bowel sounds PALPATION: Yes Soft to palpation, Yes Tenderness to palpation present (GI) (upper abdomen; non surgical exam), No Guarding due to palpation present (GI), No Rigid due to palpation and Yes No hepatosplenomegaly present : COMMON NORMALS: Yes no CVA tenderness BLADDER/KIDNEY EXAM: Yes no CVA tenderness Back/Pelvis: COMMON NORMALS: no CVA tenderness and thoracic and lumbar spine normal to inspection Extremity: COMMON NORMALS: normal to inspection and capillary refill normal GENERAL: Yes normal exam except as noted LEFT UPPER EXTREMITY: Yes elbow joint (in sling due to known fracture) Left elbow: Yes neurovascular exam (normal) Neuro: GLYNN COMA SCALE: document GCS findings Glynn coma scale eye opening: Spontaneous [place] coma scale verbal response: Orientated [place] coma scale motor response: Obey commands Glynn coma scale total score: 15 COMMON NORMALS: patient oriented x3, CN's II-XII intact bilaterally, moves all extremities, no focal motor deficits, no sensory deficits noted and gait normal SENSORIUM/ORIENTATION: Yes alert, Yes oriented to person, Yes oriented to place and Yes oriented to time MENINGEAL SIGNS: Yes no meningeal signs Skin: COMMON NORMALS: no rashes or lesions noted GENERAL SKIN EXAM: no rashes or lesions noted Course 2 Vital Signs: Vital signs: Vital Signs Temperature 97.4 F L 04/04/24 13:54 Pulse Rate 94 04/04/24 16:11 Respiratory Rate 18 04/04/24 13:54 Blood Pressure 122/72 04/04/24 16:11 Pulse Oximetry 97 04/04/24 16:11 Oxygen Delivery Me thod Room Air 04/04/24 13:54 MDM - Nausea/Vomiting/Diarrhea Medical Decision Making Patient is a 63-year-old female here for nausea and vomiting over the past week or so. She also felt like her neck was sore and had a little bit of a headache. Does not remember hitting her head on the fall. CT head/cervical spine unremarkable. She has had some mild upper abdominal pain most likely from her vomiting. Abdomen is nonsurgical. Clinically she appears in no acute distress. Her vital signs are stable. She was given antiemetics and able to hold down fluids and crackers here without difficulty or further vomiting. Her blood work overall is nonactionable. Blood sugars are chronically elevated. Serum ketones are negative. Normal anion gap. Initial urine appearing grossly infected however there was 21-50 squamous cells present. Repeat urine analysis was performed showing only 6-10 squamous but still had a cloudy appearance with positive nitrates, 2+ leuks, and over 100 WBCs therefore she will be treated with antibiotics. She was given IM Rocephin prior to discharge. Will give her prescription for antiemetics. She is following up with orthopedics in regards to her known left elbow fracture on Sunday. Recommend she also follow-up with primary care next week if possible. Return ED precautions given. Medical Records I reviewed the patient's medical records. Lab Data I reviewed the patient's lab results. 04/04/24 14:36 04/04/24 14:36 Radiology Impressions Cervical Spine CT 04/04/24 14:25 IMPRESSION: 1. No acute cervical spine fracture. 2. Cervical osteophytes and facet joint arthritis resulting in central and foraminal stenosis as above. Head CT 04/04/24 14:25 IMPRESSION: 1. No acute intracranial hemorrhage or edema. 2. Progression of cerebral atrophy and small vessel disease since 2018. 3. Chronic lacunar infarct in the LEFT caudate with an adjacent lacunar infarct in the LEFT smith radiata. These infarcts are not acute but new since 2018. 4. No skull fracture. Laboratory Results WBC 6.64 10^3/uL (3.29-11.43) 04/04/24 14:36 RBC 4.34 10^6/uL (3.85-5.65) 04/04/24 14:36 Hgb 11.30 g/dL (11.27-16.99) 04/04/24 14:36 Hct 36.0 % (36-47) 04/04/24 14:36 MCV 82.9 fl (85-98) L 04/04/24 14:36 MCH 26.0 pg (27-33) L 04/04/24 14:36 MCHC 31.4 g/dL (30-55) 04/04/24 14:36 RDW 14.6 % (12.1-15.1) 04/04/24 14:36 Plt Count 211 10^3/cmm (157-399) 04/04/24 14:36 MPV 8.9 fL (7.4-10.4) 04/04/24 14:36 Neut % (Auto) 62.8 % 04/04/24 14:36 Lymph % (Auto) 25.9 % 04/04/24 14:36 [place] % (Auto) 6.6 % 04/04/24 14:36 Eos % (Auto) 3.9 % 04/04/24 14:36 Baso % (Auto) 0.5 % 04/04/24 14:36 Neut # (Auto) 4.17 10^3/uL (1.8-7.7) 04/04/24 14:36 Lymph # (Auto) 1.7 10^3/uL (0.8-4.8) 04/04/24 14:36 [place] # (Auto) 0.4 10^3/uL (0.2-0.9) 04/04/24 14:36 Eos # (Auto) 0.3 10^3/uL (0.0-0.8) 04/04/24 14:36 Baso # (Auto) 0.0 10^3/uL (0.0-0.1) 04/04/24 14:36 Nucleated RBC % (auto) 0 % 04/04/24 14:36 Nucleated RBCs # 0.0 /100WBC 04/04/24 14:36 Sodium 133 mmol/L (136-145) L 04/04/24 14:36 Potassium 3.7 mmol/L (3.5-5.1) 04/04/24 14:36 Chloride 97 mmol/L (98-107) L 04/04/24 14:36 Carbon Dioxide 25 mmol/L (22-29) 04/04/24 14:36 Anion Gap 14.7 (5-19) 04/04/24 14:36 BUN 11 mg/dL (8-23) 04/04/24 14:36 Creatinine 1.0 mg/dL (0.5-0.9) H 04/04/24 14:36 GFR Calculation 56.0 mL/min (90-130) L 04/04/24 14:36 Glucose 230 mg/dL (65-115) H 04/04/24 14:36 Calculated Osmolality 283 mOsm/kg (285-295) L 04/04/24 14:36 Calcium 9.1 mg/dL (8.5-10.5) 04/04/24 14:36 Total Bilirubin 0.6 mg/dL (0.15-1.2) 04/04/24 14:36 AST 8 U/L (0-32) 04/04/24 14:36 ALT < 5 U/L (0-33) 04/04/24 14:36 Alkaline Phosphatase 115 U/L (35-105) H 04/04/24 14:36 Total Protein 7.0 g/dL (6.6-8.7) 04/04/24 14:36 Albumin 3.5 g/dL (3.5-5.2) 04/04/24 14:36 Globulin 3.5 g/dL (1.3-4.6) 04/04/24 14:36 Lipase 15 U/L (13-60) 04/04/24 14:36 Urine Color Dark yellow (Yellow) A 04/04/24 15:01 Urine Appearance Cloudy (CLEAR) A 04/04/24 15:01 Urine pH 6.0 (5-7) 04/04/24 15:01 Ur Specific [place] 1.022 (1.005-1.030) 04/04/24 15:01 Urine Protein 1+ (Negative) A 04/04/24 15:01 Urine Glucose (UA) Trace (Normal) H 04/04/24 15:01 Urine Ketones Trace (Negative) 04/04/24 15:01 Urine Blood Non-haemolysed trace (Negative) 04/04/24 15:01 Urine Nitrate Positive (Negative) A 04/04/24 15:01 Urine Bilirubin Negative (Negative) 04/04/24 15:01 Urine Urobilinogen 1.0 mg/dL (Negative) 04/04/24 15:01 Ur Leukocyte Esterase 2+ (Negative) A 04/04/24 15:01 Urine RBC 0-2 /hpf (0-2) 04/04/24 15:01 Urine WBC >100 /hpf (0-5) H 04/04/24 15:01 Ur Squamous Epith Cells 21-50 /hpf (0-5) 04/04/24 15:01 Amorphous Sediment Not Reportable 04/04/24 15:01 Urine Bacteria 2+ /hpf (NONE) H 04/04/24 15:01 Hyaline Casts 4.52 /lpf 04/04/24 15:01 Serum Ketones Negative (Negative) 04/04/24 14:36 All radiology interpretation(s) finalized by discharge Discharge Plan Discharge Patient Disposition: Home Clinical Impression: UTI (urinary tract infection) Qualifiers: Urinary tract infection type: acute cystitis Hematuria presence: without hematuria Qualified Code(s): N30.00 - Acute cystitis without hematuria Nausea and vomiting Qualifiers: Vomiting type: unspecified Qualified Code(s): R11.2 - Nausea with vomiting, unspecified Condition: Stable Prescriptions: New sulfamethoxazole-trimethoprim [Bactrim DS] 800-160 mg tablet 1 tab PO BID 7 Days Qty: 14 0RF ondansetron 4 mg tablet,disintegrating 4 mg PO Q8H PRN (Reason: nausea and vomiting) Qty: 14 0RF No Action insulin aspart U-100 [Novolog FlexPen U-100 Insulin] 100 unit/mL (3 mL) insulin pen 10 unit SUBCUT TID Qty: 27 1RF insulin glargine [Lantus Solostar U-100 Insulin] 100 unit/mL (3 mL) insulin pen 45 unit SUBCUT DAILY Qty: 90 0RF Trulicity 4.5 mg/0.5 mL pen injector 4.5 mg SUBCUT Q7D Qty: 2 5RF Rx Instructions: INJECT 4.5mg weekly (DME) Dexcom G7 Sensor Device See Rx Instructions .Route Qty: 9 1RF Rx Instructions: As directed (DME) Dexcom G7 Air Export Agent Misc See Rx Instructions .ROUTE .COMPLEX Qty: 1 0RF Dose Instruction: DIRECTED Rx Instructions: DIRECTED rosuvastatin 10 mg tablet 10 mg PO QPM Qty: 30 1RF duloxetine 60 mg capsule,delayed release(DR/EC) 60 mg PO DAILY Qty: 90 0RF omeprazole 40 mg Capsule,Delayed Release(Dr/Ec) 40 mg PO DAILY hydrocodone-acetaminophen 5-325 mg tablet 1 tab PO Q6H PRN (Reason: pain) Qty: 14 0RF Discharge Orders: Discharge ED (Routine); Ordered 04/04/24 Ordered By: Lynn Alejandro Referrals: Dorothy Christine NP [Primary Care Provider] - Patient Instructions: Urinary Tract Infection in Women (DC) Coding Level of Care Code ED [employer] for [employer] [facility]
[2024-04-04 14:41] LABS: Basophils % 0.5 %; Eosinophils # 0.3 10^3/uL (0.0-0.8); Eosinophils % 3.9 %; Lymphocytes # 1.7 10^3/uL (0.8-4.8); Lymphocytes % 25.9 %; Mean Corpuscular HGB Conc 31.4 g/dL (30-55); Mean Corpuscular Volume 82.9 fl (85-98); Mean Platelet Volume 8.9 fL (7.4-10.4); Monocytes # 0.4 10^3/uL (0.2-0.9); Monocytes % 6.6 %; Neutrophils # 4.17 10^3/uL (1.8-7.7); Neutrophils % 62.8 %; Nucleated Red Blood Cells % 0 %; Platelet Count 211 10^3/cmm (157-399); Red Blood Count 4.34 10^6/uL (3.85-5.65); Red Cell Distribution Width 14.6 % (12.1-15.1); White Blood Count 6.64 10^3/uL (3.29-11.43)
[2024-04-04] MEDS: ondansetron 2 mg/ML SDV 2 mL 4 MG IVP (14:42)
[2024-04-04 14:57] LABS: Alanine Aminotransferase < 5 U/L (0-33); Albumin Level 3.5 g/dL (3.5-5.2); Alkaline Phosphatase 115 U/L (35-105); Anion Gap 14.7 (5-19); Aspartate Amino Transferase 8 U/L (0-32); Blood Urea Nitrogen 11 mg/dL (8-23); Calcium 9.1 mg/dL (8.5-10.5); Carbon Dioxide 25 mmol/L (22-29); Chloride 97 mmol/L (98-107); Creatinine Clr Calc Pharmacy 65.3293; Globulin 3.5 g/dL (1.3-4.6); Glucose 230 mg/dL (65-115); Lipase 15 U/L (13-60); Osmolality Calculated 283 mOsm/kg (285-295); Potassium 3.7 mmol/L (3.5-5.1); Sodium 133 mmol/L (136-145); Total Bilirubin 0.6 mg/dL (0.15-1.2)
[2024-04-04 15:13] LABS: Bilirubin Urine Negative (Negative); Blood Urine Non-haemolysed trace (Negative); Glucose Urine UA Trace (Normal); Ketones Urine Trace (Negative); Leukocyte Esterase Urine 2+ (Negative); Nitrate Urine Positive (Negative); Protein Urine 1+ (Negative); Specific Gravity, Urine 1.022 (1.005-1.030); Urine Appearance Cloudy (CLEAR); Urine Color Dark Yellow (Yellow)
[2024-04-04 15:13] LABS: Ketone (Acetest) Serum Negative (Negative)
[2024-04-04 15:15] LABS: Add Urine Microscopic? YES; Bacteria Urine 2+ /hpf; Hyaline Casts Urine 4.52 /lpf; RBC Urine 0-2 /hpf (0-2); Squamous Epithelial Cell Urine 21-50 /hpf (0-5); WBC Urine >100 /hpf (0-5)
[2024-04-04 15:24] LABS: UA Slide Review UA Slide Review Perf
[2024-04-04 15:38] VITALS: BP 147/89; PULSE 97
[2024-04-04 16:11] VITALS: BP 122/72; PULSE 94; O2SAT 97
[2024-04-04 16:19] LABS: Bilirubin Urine Negative (Negative); Blood Urine Trace (Negative); Glucose Urine UA Trace (Normal); Ketones Urine Trace (Negative); Leukocyte Esterase Urine 2+ (Negative); Nitrate Urine Positive (Negative); Protein Urine 1+ (Negative); Specific Gravity, Urine 1.023 (1.005-1.030); Urine Appearance Cloudy (CLEAR); Urine Color Dark Yellow (Yellow); pH Urine 5.5 (5-7)
[2024-04-04 16:24] LABS: Add Urine Microscopic? YES; Bacteria Urine 1+ /hpf; Hyaline Casts Urine 2.87 /lpf; RBC Urine 0-2 /hpf (0-2); WBC Urine >100 /hpf (0-5)
[2024-04-04 16:26] LABS: UA Slide Review UA Slide Review Perf
[2024-04-04 16:27] LABS: Add Urine Culture? Yes
[2024-04-04 17:15] VITALS: BP 122/72; PULSE 78; O2SAT 99
[2024-04-04] MEDS: cefTRIAXone 1,000 MG in water for injection-sterile 2.1 ML 1 MG IM (17:15)
== END 2024-04-04 17:19 | disposition home or self-care (01) ==
PROVIDERS: Emergency Provider Physician Assistant
DX: N30.00 Acute cystitis without hematuria (principal); R11.2 Nausea with vomiting, unspecified; Z79.4 Long term (current) use of insulin; Z79.85 Long-term (current) use of injectable non-insulin antidiabetic drugs; E11.9 Type 2 diabetes mellitus without complications
CPT/HCPCS: 70450; 72125; 80053; 81001; 82009; 83690; 85025; 87077; 87086; 87186; 96372; 96374; 99285; J0696; J2405

== ENCOUNTER → 2024-04-08 13:06 | Outpatient (BNVA) | payer OTHER, SELFPAY | PROVIDERS: Visit Provider Physician Assistant | DX: S52.122A Displaced fracture of head of left radius, initial encounter for closed fracture; W01.0XXA Fall on same level from slipping, tripping and stumbling without subsequent striking against object, initial encounter; S52.512A Displaced fracture of left radial styloid process, initial encounter for closed fracture | CPT/HCPCS: 73080; 73110 ==

== ENCOUNTER 2024-04-08 15:12 | Outpatient (CLI) | payer OTHER, SELFPAY | END 2024-04-08 15:13 | disposition home or self-care (01) | LOC: SPT 15:21 | PROVIDERS: Visit Provider Physician Assistant | DX: Z46.89 Encounter for fitting and adjustment of other specified devices (principal); M25.532 Pain in left wrist | CPT/HCPCS: 97760; L3807 ==

== ENCOUNTER → 2024-04-17 13:30 | Outpatient (BNVA) | payer OTHER, SELFPAY | PROVIDERS: Visit Provider Physician Assistant | DX: S52.122A Displaced fracture of head of left radius, initial encounter for closed fracture (principal); S52.512A Displaced fracture of left radial styloid process, initial encounter for closed fracture; X58.XXXA Exposure to other specified factors, initial encounter | CPT/HCPCS: 73080; 73110 ==

== ENCOUNTER 2024-05-08 07:30 | Outpatient (CLI) | payer BC, SELFPAY ==
[2024-05-08 08:37] LABS: Creatinine Urine, Random 257 mg/dL (28-217); Microalbumin Random Urine 14 ug/dL (0-20)
[2024-05-08 08:40] LABS: Alanine Aminotransferase < 5 U/L (0-33); Albumin Level 3.6 g/dL (3.5-5.2); Alkaline Phosphatase 129 U/L (35-105); Anion Gap 15.3 (5-19); Aspartate Amino Transferase 8 U/L (0-32); Blood Urea Nitrogen 10 mg/dL (8-23); Calcium 9.1 mg/dL (8.5-10.5); Carbon Dioxide 24 mmol/L (22-29); Chloride 102 mmol/L (98-107); Chol HDL Ratio 4.28 mg/dL (0.0-4.40); Cholesterol 184 mg/dL (0-200); Globulin 4.7 g/dL (1.3-4.6); Glomerular Filtration Rate 63.2 mL/min (90-130); Glucose 228 mg/dL (65-115); HDL Cholesterol 43 mg/dL (60-100); LDL Cholesterol Calculated 107 mg/dL (50-129); LDL HDL Ratio 2.49 RATIO (0.00-3.22); Osmolality Calculated 292 mOsm/kg (285-295); Potassium 3.3 mmol/L (3.5-5.1); Sodium 138 mmol/L (136-145); Total Bilirubin 0.6 mg/dL (0.15-1.2); Total Protein 8.3 g/dL (6.6-8.7); Triglycerides 171 mg/dL (0-150)
[2024-05-08 08:42] LABS: Microalbum Creatinine Ratio Ur 54 mg/dL (0-20)
[2024-05-08 08:48] LABS: Estmated Average Glucose 226; Hemoglobin A1C 9.5 % (4.0-6.0)
== END 2024-05-08 07:31 | disposition home or self-care (01) ==
LOC: LAB 07:33
PROVIDERS: Internal Medicine
DX: E11.649 Type 2 diabetes mellitus with hypoglycemia without coma (principal)
CPT/HCPCS: 36415; 80053; 80061; 82044; 83036

== ENCOUNTER 2024-05-10 09:51 | Emergency (ER) | payer BC, SELFPAY ==
[2024-05-10 09:57] VITALS: BP 155/108; PULSE 73; RESP 16; TEMP 36.5; O2SAT 99
[2024-05-10 10:04] VITALS: BP 130/102; PULSE 77; RESP 13; O2SAT 100
--- NOTE | 2024-05-10 10:07 | CTR_ITS ---
PROCEDURE INFORMATION: Exam: CT Head Without Contrast Exam date and time: 05/10/2024 10:25 AM Age: 63 years old Clinical indication: Pain; Headache; Additional info: Headaches, nausea, confusion TECHNIQUE: Imaging protocol: Computed tomography of the head without contrast. Radiation optimization: All CT scans at this facility use at least one of these dose optimization techniques: automated exposure control; mA and/or kV adjustment per patient size (includes targeted exams where dose is matched to clinical indication); or iterative reconstruction. COMPARISON: CT head wo con* [id number] 04/04/2024 2:45 PM RADIATION DOSE METRICS: Total DLP (mGy-cm): 1058.54 FINDINGS: Brain: There are bilateral periventricular white matter and centrum semiovale hypodensities, consistent with chronic ischemic small vessel disease. Age related diffuse parenchymal volume loss. No recent infarct, intracranial bleed or mass effect. Chronic lacunar infarct in the left caudate lobe. Cerebral ventricles: Ex vacuo dilatation of the ventricles. Paranasal sinuses: Visualized sinuses are unremarkable. No fluid levels. Mastoid air cells: Visualized mastoid air cells are well aerated. Orbital cavities: Post bilateral cataract surgery. Bones: Unremarkable. No acute fracture. Soft tissues: Unremarkable. CT/CT head wo con* [id number] IMPRESSION: No large territorial infarct or intracranial bleed.
--- NOTE | 2024-05-10 10:08 | W.ED.HA ---
HPI - Headache General: Chief Complaint: Headache Stated Complaint: headache, n/v Time Seen by Provider: 05/10/24 09:59 History of Present Illness: 63-year-old female with a history of obesity, GERD, diabetes and hyperlipidemia who presents to the emergency room with headaches. She says at around Thanksgiving a month ago she had fallen and had a head injury. She had hit her face. Since then she has been having headaches and nausea. She has had some vomiting. She says today she felt more confused. She has not been sure what to do. No focal motor deficits. No sensory deficits. She does not appear confused on exam. No chest pain. No abdominal pain. She says she just did not feel herself today. Related Data Home Medications Medication Instructions Recorded Confirmed omeprazole 40 mg capsule,delayed 40 mg PO DAILY 07/08/19 05/10/24 release acetaminophen 325 mg tablet 650 mg PO QID PRN Pain 05/10/24 05/10/24 (Tylenol) Previous Rx's Medication Instructions Recorded dulaglutide 4.5 mg/0.5 mL 4.5 mg (0.5 mL) SUBCUT Q7D #2 mL 10/24/23 subcutaneous pen injector ([employer]) insulin glargine 100 unit/mL (3 45 unit (0.45 mL) SUBCUT DAILY #90 11/01/23 mL) subcutaneous pen (Lantus mL Solostar U-100 Insulin) blood-glucose meter,continuous #1 ea 02/05/24 (Dexcom G7 Room Service Supervisor) hydrocodone 5 mg-acetaminophen 325 1 tab PO Q6H PRN pain #14 tabs 03/28/24 mg tablet duloxetine 60 mg capsule,delayed 60 mg PO DAILY #90 caps 04/02/24 release rosuvastatin 10 mg tablet 10 mg PO QPM #30 tabs 04/02/24 ondansetron 4 mg disintegrating 4 mg PO Q8H PRN nausea and 04/04/24 tablet vomiting #14 tabs left arm sling #1 ea 04/08/24 left thumb spika fast form #1 ea 04/08/24 blood-glucose sensor (Dexcom G7 #3 ea 05/01/24 Sensor device) insulin aspart U-100 100 unit/mL See Rx Instructions .Route 05/01/24 (3 mL) subcutaneous pen (Novolog .COMPLEX #15 mL FlexPen U-100 Insulin aspart) cefdinir 300 mg capsule 300 mg PO BID 7 days #14 caps 05/10/24 ondansetron 4 mg disintegrating 4 mg PO Q8H PRN nausea and 05/10/24 tablet vomiting #10 tabs tramadol 50 mg tablet 50 mg PO Q8H PRN pain #10 tabs 05/10/24 Allergies Allergy/AdvReac Type Severity Reaction Status Date / Time insulin detemir Allergy Intermediate ALGY-Swell Verified 05/08/24 16:55 [From Levemir U-100 Insulin] Lip/Tongue/Throat acetaminophen [From Percocet] Allergy ADR-Nausea Verified 05/08/24 16:55 atorvastatin Allergy bad Verified 05/08/24 16:55 diarrhea empagliflozin Allergy Unknown Verified 05/08/24 16:55 [From Jardiance] etodolac Allergy Unknown Verified 05/08/24 16:55 liraglutide [From Victoza] Allergy severe Verified 05/08/24 16:55 burps and gas nabumetone [From Relafen] Allergy ADR-Nausea Verified 05/08/24 16:55 oxycodone [From Percocet] Allergy ADR-Nausea Verified 05/08/24 16:55 prochlorperazine Allergy ADR/ALGY-Pa Verified 05/08/24 16:55 [From Compazine] lpitations topiramate [From Topamax] Allergy ADR-Agitate Verified 05/08/24 16:55 d triamcinolone [From Nasacort] Allergy ADR-Nausea Verified 05/08/24 16:55 Review of Systems Narrative: Constitutional symptoms: Negative except as documented in HPI. Skin symptoms: Negative except as documented in HPI. Eye symptoms: Negative except as documented in HPI. ENMT symptoms: Negative except as documented in HPI. Respiratory symptoms: Negative except as documented in HPI. Cardiovascular symptoms: Negative except as documented in HPI. Gastrointestinal symptoms: Negative except as documented in HPI. Genitourinary symptoms: Negative except as documented in HPI. Musculoskeletal symptoms: Negative except as documented in HPI. Neurologic symptoms: Negative except as documented in HPI. Psychiatric symptoms: Negative except as documented in HPI. Endocrine symptoms: Negative except as documented in HPI. PFSH ED PFSH: Medical History Pneumonia Vomiting Iron deficiency anemia Normal colonoscopy HX: benign breast biopsy Gastric ulcer Chronic GERD Insulin dependent diabetes mellitus Type 2 diabetes mellitus Anxiety Liver mass benign Surgical History History of colonoscopy History of esophagogastroduodenoscopy (EGD) H/O discectomy L4-L5 History of hysterectomy [id number]. Benign H/O arthroscopic knee surgery Left History of tubal ligation Hx of cholecystectomy Family History Father CAD (coronary artery disease) Mother CAD (coronary artery disease) Social History Smoking and tobacco/nicotine status: never used tobacco/nicotine Alcohol intake: former Substance/Drug Use: never Adopted: No Lives independently: Yes Household members: spouse Marital status: service: No Current occupational exposures/hazards: No Physical Exam Narrative: EXAM NARRATIVE: General: Alert, no acute distress. Skin: Warm, dry. Head: Normocephalic, atraumatic. Neck: Supple, trachea midline. Eye: Extraocular movements are intact. Ears, nose, mouth and throat: mucosa moist. Cardiovascular: Regular, Normal peripheral perfusion. Respiratory: Lungs are clear to auscultation, respirations are non-labored, breath sounds are equal, Symmetrical chest wall expansion. Gastrointestinal: Soft, Nontender, Non distended Musculoskeletal: Normal ROM, no deformity. Neurological: Alert and oriented, No focal neurological deficit observed. Psychiatric: Cooperative, appropriate mood & affect. Course Vital Signs: Vital signs: Vital Signs Temperature 97.7 F 05/10/24 09:57 Pulse Rate 89 05/10/24 11:42 Respiratory Rate 13 05/10/24 10:04 Blood Pressure 137/81 05/10/24 11:42 Pulse Oximetry 99 05/10/24 11:42 MDM - Headache Medical Decision Making Medical decision making: Differential diagnosis for this patient presenting with severe headache including but not limited to and based on the above HPI, review of systems and physical exam: Intracranial hemorrhage, stroke, migraine, cluster headache, infections such as influenza, covid or urinary tract infection Orders placed to evaluate differential diagnosis based on the above differential, HPI and physical exam CT head: No acute intracranial process. no intracranial hemorrhage, no evidence of infarct. no evidence of acute fracture.This was reviewed and interpreted by myself the ER physician. Lab Review: Laboratory results were reviewed and interpreted by myself the emergency room physician. No leukocytosis. No anemia. No renal failure. Blood sugar slightly elevated at 232. Patient has a significant urinary tract infection that is nitrate positive, leukocyte esterase positive with 100 whites and 4+ bacteria. This most likely is causing her change in symptoms. I reviewed the patient's medical record. Reexamination: Patient remained stable. No increased work of breathing. No altered mental status. No focal motor deficits. Assessment and plan: Urinary tract infection Headaches ? Toradol, Zofran, IV Rocephin in the emergency room. - Discharged home - Discussed plan with patient. Answered any questions. - Evaluation and treatment of this problem were appropriate in the emergency setting. Lab Data 05/10/24 10:14 05/10/24 10:[address] 05/10/24 10:07 IMPRESSION: No large territorial infarct or intracranial bleed. Laboratory Results WBC 6.57 10^3/uL (3.29-11.43) 05/10/24 10:14 RBC 4.40 10^6/uL (3.85-5.65) 05/10/24 10:14 Hgb 11.50 g/dL (11.27-16.99) 05/10/24 10:14 Hct 36.2 % (36-47) 05/10/24 10:14 MCV 82.3 fl (85-98) L 05/10/24 10:14 MCH 26.1 pg (27-33) L 05/10/24 10:14 MCHC 31.8 g/dL (30-55) 05/10/24 10:14 RDW 14.5 % (12.1-15.1) 05/10/24 10:14 Plt Count 206 10^3/cmm (157-399) 05/10/24 10:14 MPV 9.3 fL (7.4-10.4) 05/10/24 10:14 Neut % (Auto) 50.7 % 05/10/24 10:14 Lymph % (Auto) 37.0 % 05/10/24 10:14 [place] % (Auto) 6.5 % 05/10/24 10:14 Eos % (Auto) 4.6 % 05/10/24 10:14 Baso % (Auto) 0.9 % 05/10/24 10:14 Neut # (Auto) 3.33 10^3/uL (1.8-7.7) 05/10/24 10:14 Lymph # (Auto) 2.4 10^3/uL (0.8-4.8) 05/10/24 10:14 [place] # (Auto) 0.4 10^3/uL (0.2-0.9) 05/10/24 10:14 Eos # (Auto) 0.3 10^3/uL (0.0-0.8) 05/10/24 10:14 Baso # (Auto) 0.1 10^3/uL (0.0-0.1) 05/10/24 10:14 Nucleated RBC % (auto) 0 % 05/10/24 10:14 Nucleated RBCs # 0.0 /100WBC 05/10/24 10:14 Sodium 139 mmol/L (136-145) 05/10/24 10:14 Potassium 3.4 mmol/L (3.5-5.1) L 05/10/24 10:14 Chloride 101 mmol/L (98-107) 05/10/24 10:14 Carbon Dioxide 24 mmol/L (22-29) 05/10/24 10:14 Anion Gap 17.4 (5-19) 05/10/24 10:14 BUN 10 mg/dL (8-23) 05/10/24 10:14 Creatinine 0.8 mg/dL (0.5-0.9) 05/10/24 10:14 GFR Calculation 72.4 mL/min (90-130) L 05/10/24 10:14 Glucose 232 mg/dL (65-115) H 05/10/24 10:14 Calculated Osmolality 294 mOsm/kg (285-295) 05/10/24 10:14 Calcium 8.8 mg/dL (8.5-10.5) 05/10/24 10:14 Total Bilirubin 0.6 mg/dL (0.15-1.2) 05/10/24 10:14 AST 7 U/L (0-32) 05/10/24 10:14 ALT < 5 U/L (0-33) 05/10/24 10:14 Alkaline Phosphatase 119 U/L (35-105) H 05/10/24 10:14 Total Protein 7.4 g/dL (6.6-8.7) 05/10/24 10:14 Albumin 3.5 g/dL (3.5-5.2) 05/10/24 10:14 Globulin 3.9 g/dL (1.3-4.6) 05/10/24 10:14 Urine Color Yellow (Yellow) 05/10/24 10:50 Urine Appearance Turbid (CLEAR) A 05/10/24 10:50 Urine pH 5.5 (5-7) 05/10/24 10:50 Ur Specific [place] 1.018 (1.005-1.030) 05/10/24 10:50 Urine Protein 1+ (Negative) A 05/10/24 10:50 Urine Glucose (UA) Trace (Normal) H 05/10/24 10:50 Urine Ketones Trace (Negative) 05/10/24 10:50 Urine Blood 1+ (Negative) A 05/10/24 10:50 Urine Nitrate Positive (Negative) A 05/10/24 10:50 Urine Bilirubin Negative (Negative) 05/10/24 10:50 Urine Urobilinogen 0.2 mg/dL (Negative) 05/10/24 10:50 Ur Leukocyte Esterase 2+ (Negative) A 05/10/24 10:50 Urine RBC 0-2 /hpf (0-2) 05/10/24 10:50 Urine WBC >100 /hpf (0-5) H 05/10/24 10:50 Ur Squamous Epith Cells 21-50 /hpf (0-5) 05/10/24 10:50 Amorphous Sediment Not Reportable 05/10/24 10:50 Urine Bacteria 4+ /hpf (NONE) H 05/10/24 10:50 Hyaline Casts 5.56 /lpf 05/10/24 10:50 All radiology interpretation(s) finalized by discharge Discharge Plan Discharge Patient Disposition: Home Clinical Impression: Urinary tract infection, Headache Condition: Stable Prescriptions: New tramadol 50 mg tablet 50 mg PO Q8H PRN (Reason: pain) Qty: 10 0RF ondansetron 4 mg tablet,disintegrating 4 mg PO Q8H PRN (Reason: nausea and vomiting) Qty: 10 0RF cefdinir 300 mg capsule 300 mg PO BID 7 Days Qty: 14 0RF No Action (DME) left arm sling See Rx Instructions .Route .MEDSUPPLY Qty: 1 0RF Rx Instructions: As directed (DME) left thumb spika fast form See Rx Instructions .Route .MEDSUPPLY Qty: 1 0RF Rx Instructions: As directed insulin glargine [Lantus Solostar U-100 Insulin] 100 unit/mL (3 mL) insulin pen 45 unit SUBCUT DAILY Qty: 90 0RF Trulicity 4.5 mg/0.5 mL pen injector 4.5 mg SUBCUT Q7D Qty: 2 5RF Rx Instructions: INJECT 4.5mg weekly (DME) Dexcom G7 Room Service Supervisor Misc See Rx Instructions .ROUTE .COMPLEX Qty: 1 0RF Dose Instruction: DIRECTED Rx Instructions: DIRECTED rosuvastatin 10 mg tablet 10 mg PO QPM Qty: 30 1RF duloxetine 60 mg capsule,delayed release(DR/EC) 60 mg PO DAILY Qty: 90 0RF insulin aspart U-100 [Novolog FlexPen U-100 Insulin] 100 unit/mL (3 mL) insulin pen See Rx Instructions .ROUTE .COMPLEX Qty: 15 1RF Dose Instruction: INJECT 10 UNITS SUBCUTANEOUSLY THREE TIMES DAILY Rx Instructions: INJECT 10 UNITS SUBCUTANEOUSLY THREE TIMES DAILY (DME) Dexcom G7 Sensor Device See Rx Instructions .ROUTE .COMPLEX Qty: 3 1RF Dose Instruction: DIRECTED, CHANGE EVERY 10 DAYS Rx Instructions: DIRECTED, CHANGE EVERY 10 DAYS omeprazole 40 mg Capsule,Delayed Release(Dr/Ec) 40 mg PO DAILY hydrocodone-acetaminophen 5-325 mg tablet 1 tab PO Q6H PRN (Reason: pain) Qty: 14 0RF ondansetron 4 mg tablet,disintegrating 4 mg PO Q8H PRN (Reason: nausea and vomiting) Qty: 14 0RF acetaminophen [Tylenol] 325 mg Tablet 650 mg PO QID PRN (Reason: Pain) Discharge Orders: Discharge ED (Routine); Ordered 05/10/24 Ordered By: Nita Dc Referrals: Ana Webber MD [Physician] - 4-7 days (Please call for an appointment or obtain referral from your primary care provider if your headaches persist.) Dorothy Christine NP [Primary Care Provider] - Discharge Diet: Usual diet Discharge Activity: Increase activity as tolerated Patient Instructions: Urinary Tract Infection in Older Adults (ED), Opioid Safety, Pain Management Activity Restrictions/Additional Instructions: Thank you for choosing [facility] for your healthcare needs today. Please realize this is an emergency room and that we are providing you with a medical screening exam and this may not be complete and all inclusive of all the testing and or work up that you may need to determine your ailment or severity of your illness. You have been screened and evaluated and felt safe for discharge. Health conditions do change or evolve sometimes and as such it is important that you follow up with your Primary Doctor to be re checked, 3-5 days is a general good time frame for follow up. You are always welcome to return to the ED for re assessment if your symptoms are worsening or you have new concerns Coding Level of Care Code ED Vp [employer] for Fang Lewis
[2024-05-10 10:23] LABS: Basophils # 0.1 10^3/uL (0.0-0.1); Basophils % 0.9 %; Eosinophils # 0.3 10^3/uL (0.0-0.8); Eosinophils % 4.6 %; Hematocrit 36.2 % (36-47); Lymphocytes # 2.4 10^3/uL (0.8-4.8); Mean Corpuscular HGB Conc 31.8 g/dL (30-55); Mean Corpuscular Hemoglobin 26.1 pg (27-33); Mean Corpuscular Volume 82.3 fl (85-98); Mean Platelet Volume 9.3 fL (7.4-10.4); Monocytes # 0.4 10^3/uL (0.2-0.9); Monocytes % 6.5 %; Neutrophils # 3.33 10^3/uL (1.8-7.7); Neutrophils % 50.7 %; Nucleated Red Blood Cells % 0 %; Platelet Count 206 10^3/cmm (157-399); Red Cell Distribution Width 14.5 % (12.1-15.1); White Blood Count 6.57 10^3/uL (3.29-11.43)
[2024-05-10 10:39] LABS: Alanine Aminotransferase < 5 U/L (0-33); Albumin Level 3.5 g/dL (3.5-5.2); Alkaline Phosphatase 119 U/L (35-105); Anion Gap 17.4 (5-19); Aspartate Amino Transferase 7 U/L (0-32); Blood Urea Nitrogen 10 mg/dL (8-23); Calcium 8.8 mg/dL (8.5-10.5); Carbon Dioxide 24 mmol/L (22-29); Chloride 101 mmol/L (98-107); Creatinine Clr Calc Pharmacy 81.6616; Globulin 3.9 g/dL (1.3-4.6); Glomerular Filtration Rate 72.4 mL/min (90-130); Glucose 232 mg/dL (65-115); Osmolality Calculated 294 mOsm/kg (285-295); Potassium 3.4 mmol/L (3.5-5.1); Sodium 139 mmol/L (136-145); Total Bilirubin 0.6 mg/dL (0.15-1.2); Total Protein 7.4 g/dL (6.6-8.7)
[2024-05-10 11:01] LABS: Bilirubin Urine Negative (Negative); Blood Urine 1+ (Negative); Glucose Urine UA Trace (Normal); Ketones Urine Trace (Negative); Leukocyte Esterase Urine 2+ (Negative); Nitrate Urine Positive (Negative); Protein Urine 1+ (Negative); Specific Gravity, Urine 1.018 (1.005-1.030); Urine Appearance Turbid (CLEAR); Urine Color Yellow (Yellow); Urobilinogen Urine 0.2 mg/dL (Negative); pH Urine 5.5 (5-7)
[2024-05-10 11:03] LABS: Bacteria Urine 4+ /hpf; Hyaline Casts Urine 5.56 /lpf; RBC Urine 0-2 /hpf (0-2); Squamous Epithelial Cell Urine 21-50 /hpf (0-5); WBC Urine >100 /hpf (0-5)
[2024-05-10] MEDS: ketorolac 30 mg/mL INJ IVP (11:28)
[2024-05-10] MEDS: cefTRIAXone 1,000 mg SDV 1000 MG IVP (11:28)
[2024-05-10] MEDS: ondansetron 2 mg/ML SDV 2 mL 4 MG IVP (11:28)
[2024-05-10 11:42] VITALS: BP 137/81; PULSE 89; O2SAT 99
== END 2024-05-10 11:44 | disposition home or self-care (01) ==
PROVIDERS: Emergency Provider Emergency Medicine
DX: N39.0 Urinary tract infection, site not specified (principal); R51.9 Headache, unspecified
CPT/HCPCS: 36415; 70450; 80053; 81001; 85025; 96374; 96375; 99285; J0696; J1885; J2405

== ENCOUNTER → 2024-05-13 13:21 | Outpatient (BNVA) | payer BC, SELFPAY | PROVIDERS: Visit Provider Physician Assistant | DX: S52.122A Displaced fracture of head of left radius, initial encounter for closed fracture; S52.512A Displaced fracture of left radial styloid process, initial encounter for closed fracture; X58.XXXA Exposure to other specified factors, initial encounter | CPT/HCPCS: 73080; 73110 ==

== ENCOUNTER 2024-05-13 15:53 | Outpatient (CLI) | payer OTHER, SELFPAY | END 2024-05-13 15:54 | disposition home or self-care (01) | LOC: SPT 15:54 | PROVIDERS: Visit Provider Physician Assistant | DX: Z46.89 Encounter for fitting and adjustment of other specified devices (principal); S52.512D Displaced fracture of left radial styloid process, subsequent encounter for closed fracture with routine healing; X58.XXXD Exposure to other specified factors, subsequent encounter | CPT/HCPCS: L3908 ==

== ENCOUNTER 2024-05-21 13:31 | Outpatient (CLI) | payer OTHER, SELFPAY ==
--- NOTE | 2024-05-21 13:35 | XR_ITS ---
WS: [id number] XR shoulder LT min 2V* [id number] REASON FOR EXAM: left shoulder pain FINDINGS: The examination is unchanged compared to 03/28/2024. Minimal narrowing of the acromioclavicular joint with minimal subchondral sclerosis and osteophytosis . The glenohumeral joint space is not demonstrated. There is mild subchondral sclerosis in the glenoid. There is a calcification adjacent to the humeral head which may be within the biceps tendon. This umu cification is identifiable on the previous examination of 03/28/2024. 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 Possib le calcific tendinosis/HADD in the intra-articular biceps tendon.
== END 2024-05-21 13:32 | disposition home or self-care (01) ==
LOC: RAD 13:33
PROVIDERS: Visit Provider Pediatrics
DX: M25.512 Pain in left shoulder (principal); R93.6 Abnormal findings on diagnostic imaging of limbs
CPT/HCPCS: 73030

== ENCOUNTER → 2024-06-10 14:38 | Outpatient (BNVA) | payer OTHER, SELFPAY | PROVIDERS: Visit Provider Physician Assistant | DX: S52.122D Displaced fracture of head of left radius, subsequent encounter for closed fracture with routine healing (principal); X58.XXXD Exposure to other specified factors, subsequent encounter | CPT/HCPCS: 73080; 73110 ==

== ENCOUNTER → 2024-06-17 07:18 | Outpatient (BNVA) | payer OTHER, SELFPAY | DX: R05.9 Cough, unspecified (principal) | CPT/HCPCS: 87400 ==

== ENCOUNTER 2024-11-30 22:44 | Emergency (ER) | payer SELFPAY ==
[2024-11-30 22:45] VITALS: PULSE 67; RESP 16; TEMP 36.6; O2SAT 100; BMI 32.3
--- NOTE | 2024-11-30 23:01 | CTR_ITS ---
PROCEDURE INFORMATION: Exam: CT Abdomen And Pelvis With Contrast Exam date and time: 11/30/2024 11:23 PM Age: 64 years old Clinical indication: Nausea and vomiting; Abdominal pain; Prior surgery; Surgery date: 6+ months; Surgery type: Gb. Hysterectomy; Epigastric pain with n/v; Additional info: Abd pain TECHNIQUE: Imaging protocol: Computed tomography of the abdomen and pelvis with contrast. Radiation optimization: All CT scans at this facility use at least one of these dose optimization techniques: automated exposure control; mA and/or kV adjustment per patient size (includes targeted exams where dose is matched to clinical indication); or iterative reconstruction. Contrast material: OMNI 350; Contrast volume: 100 ml; Contrast route: INTRAVENOUS (IV); COMPARISON: CT abdomen pelvis w con* [id number] 04/11/2022 3:05 PM RADIATION DOSE METRICS: Total DLP (mGy-cm): 966.53 FINDINGS: Lungs: Emphysematous changes. Liver: Normal. No mass. Gallbladder and biliary ducts: Normal. No calcified stones. No ductal dilation. Pancreas: Normal. No ductal dilation. Spleen: Normal. No splenomegaly. Adrenal glands: Normal. No mass. Kidneys and ureters: Right renal pelvis is somewhat dilated suggestive of a ureteropelvic junction stricture, similar to prior exam, delayed phase postcontrast imaging study could further characterize this. Stomach and bowel: Sigmoid colon mild wall thickening with surrounding edema, suggestive of diverticulitis. Appendix: No evidence of appendicitis. Intraperitoneal space: Unremarkable. No free air. No significant fluid collection. Vasculature: Unremarkable. No abdominal aortic aneurysm. Lymph nodes: Unremarkable. No enlarged lymph nodes. Urinary bladder: Urinary bladder wall thickening with mild surrounding edema, please correlate for cystitis. Reproductive: Unremarkable as visualized. Bones/joints: Unremarkable. No acute fracture. Soft tissues: Unremarkable. CT/CT abdomen pelvis w con* [id number] IMPRESSION: 1. Sigmoid colon mild wall thickening with surrounding edema, suggestive of diverticulitis. 2. Emphysematous changes. 3. Right renal pelvis is somewhat dilated suggestive of a ureteropelvic junction stricture, similar to prior exam, delayed phase postcontrast imaging study could further characterize this. 4. Urinary bladder wall thickening with mild surrounding edema, please correlate for cystitis.
[2024-11-30] MEDS: ondansetron 2 mg/ML SDV 2 mL 4 MG IVP (23:11)
[2024-11-30] MEDS: haloperidol inj 5 mg/mL INJ 1 mL 3 MG IVP (23:11)
[2024-11-30 23:16] LABS: Hematocrit 38.5 % (36-47); Hemoglobin 12.70 g/dL (11.27-16.99); Lactic Sepsis W/Reflex 3.7 mmol/L (0.5-2.2); Mean Corpuscular HGB Conc 33.0 g/dL (30-55); Mean Corpuscular Hemoglobin 26.9 pg (27-33); Mean Corpuscular Volume 81.6 fl (85-98); Nucleated Red Blood Cells % 0 %; Platelet Count 260 10^3/cmm (157-399); Red Blood Count 4.72 10^6/uL (3.85-5.65); White Blood Count 9.91 10^3/uL (3.29-11.43)
[2024-11-30 23:17] LABS: Alanine Aminotransferase 6 U/L (0-33); Albumin Level 3.8 g/dL (3.5-5.2); Alkaline Phosphatase 130 U/L (35-105); Anion Gap 23.3 (5-19); Aspartate Amino Transferase 8 U/L (0-32); Blood Urea Nitrogen 18 mg/dL (8-23); Calcium 9.6 mg/dL (8.5-10.5); Carbon Dioxide 19 mmol/L (22-29); Chloride 99 mmol/L (98-107); Creatinine Clr Calc Pharmacy 64.4808; Globulin 4.4 g/dL (1.3-4.6); Glucose 271 mg/dL (65-115); Lipase 13 U/L (13-60); Osmolality Calculated 297 mOsm/kg (285-295); Potassium 3.3 mmol/L (3.5-5.1); Reflex Lactate Order REFLEX LACTIC ORDERD; Sodium 138 mmol/L (136-145); Total Protein 8.2 g/dL (6.6-8.7)
[2024-11-30] MEDS: iohexol 350 mg/mL 500 mL Btl (per mL) IV (23:21)
[2024-11-30 23:49] VITALS: BP 143/102; PULSE 89; RESP 16; O2SAT 99
[2024-12-01] VITALS (8 sets, daily range): BP systolic 135–163; BP diastolic 84–109; PULSE 64–74; RESP 16–18; O2SAT 92–100
--- NOTE | 2024-12-01 00:10 | W.ED.NAVMDI ---
HPI - Nausea/Vomiting/Diarrhea General: Chief complaint: Nausea/Vomiting/Diarrhea Stated complaint: N/V Time Seen by Provider: 11/30/24 22:45 History of Present Illness: 64-year-old female with generalized abdominal pain, vomiting. She denies fever. Her symptoms started today, this afternoon. No definite fever. She feels cold. No diarrhea. No blood in the stool or vomitus. Related Data Home Medications ?Medication ?Instructions ?Recorded ?Confirmed omeprazole 40 mg capsule,delayed 40 mg PO DAILY 07/08/19 06/17/24 release acetaminophen 325 mg tablet 650 mg PO QID PRN Pain 05/10/24 06/17/24 (Tylenol) Previous Rx's ?Medication ?Instructions ?Recorded dulaglutide 4.5 mg/0.5 mL 4.5 mg (0.5 mL) SUBCUT Q7D #2 mL 10/24/23 subcutaneous pen injector ([employer]) blood-glucose,optometric assistant,cont #1 ea 02/05/24 (Dexcom G7 Wood Type Finisher) duloxetine 60 mg capsule,delayed 60 mg PO DAILY #90 caps 04/02/24 release rosuvastatin 10 mg tablet 10 mg PO QPM #30 tabs 04/02/24 ondansetron 4 mg disintegrating 4 mg PO Q8H PRN nausea and 05/10/24 tablet vomiting #10 tabs tramadol 50 mg tablet 50 mg PO Q8H PRN pain #10 tabs 05/10/24 Cock Up Velcro Wrist Brace #1 ea 05/13/24 cyclobenzaprine 5 mg tablet 5 mg PO TID PRN muscle spasm #30 05/19/24 tabs oseltamivir 75 mg capsule (Tamiflu) 75 mg PO BID 5 days #10 caps 06/17/24 insulin glargine 100 unit/mL (3 45 unit (0.45 mL) SUBCUT DAILY #90 06/23/24 mL) subcutaneous pen (Lantus mL Solostar U-100 Insulin) blood-glucose sensor (Dexcom G7 #9 ea 07/02/24 Sensor device) insulin aspart U-100 100 unit/mL See Rx Instructions .Route 10/08/24 (3 mL) subcutaneous pen (Novolog .COMPLEX #15 mL FlexPen U-100 Insulin aspart) Allergies Allergy/AdvReac Type Severity Reaction Status Date / Time insulin detemir (From Allergy Intermediate ALGY-Swell Verified 06/17/24 07:06 Levemir U-100 Insulin) Lip/Tongue/Throat acetaminophen (From Percocet) Allergy ADR-Nausea Verified 06/17/24 07:06 atorvastatin Allergy bad Verified 06/17/24 07:06 diarrhea empagliflozin (From Allergy Unknown Verified 06/17/24 07:06 Jardiance) etodolac Allergy Unknown Verified 06/17/24 07:06 liraglutide (From Victoza) Allergy severe Verified 06/17/24 07:06 burps and gas nabumetone (From Relafen) Allergy ADR-Nausea Verified 06/17/24 07:06 oxycodone (From Percocet) Allergy ADR-Nausea Verified 06/17/24 07:06 prochlorperazine (From Allergy ADR/ALGY-Pa Verified 06/17/24 07:06 Compazine) lpitations topiramate (From Topamax) Allergy ADR-Agitate Verified 06/17/24 07:06 d triamcinolone (From Nasacort) Allergy ADR-Nausea Verified 06/17/24 07:06 PFSH ED PFSH: Medical History Left shoulder pain Unsteady gait Pneumonia Vomiting Iron deficiency anemia Normal colonoscopy HX: benign breast biopsy Gastric ulcer Chronic GERD Insulin dependent diabetes mellitus Type 2 diabetes mellitus Anxiety Liver mass benign Surgical History History of colonoscopy History of esophagogastroduodenoscopy (EGD) H/O discectomy L4-L5 History of hysterectomy IGNACIO-BSO. Benign H/O arthroscopic knee surgery Left History of tubal ligation Hx of cholecystectomy Family History Father CAD (coronary artery disease) Mother CAD (coronary artery disease) Social History Smoking and tobacco/nicotine status: never used tobacco/nicotine Alcohol intake: former Substance/Drug Use: never Adopted: No Lives independently: Yes Household members: spouse Marital status: service: No Current occupational exposures/hazards: No Physical Exam Const: GENERAL APPEARANCE: cooperative, ill appearing and frail appearing (Mildly) HENMT: COMMON NORMALS: normocephalic, atraumatic and Normal external nose present HEAD & SCALP: normocephalic and atraumatic FACE & SINUS: normal facial exam and face symmetric NOSE: Normal external nose present Eye: COMMON NORMALS: Equal, round and reactive pupils present and EOMs intact bilaterally PUPIL: Yes Equal, round and reactive pupils present Neck/C-Spine: GENERAL: Yes trachea midline Chest: CHEST: Yes Symmetrical chest wall rise Resp: COMMON NORMALS: normal respiratory effort, No retractions, No use of accessory muscles and clear to auscultation bilaterally AUSCULTATION: clear to auscultation bilaterally Cardio: COMMON NORMALS: regular rate and regular rhythm RATE: regular rate RHYTHM: regular rhythm GI: INSPECTION: Yes abdominal distension PALPATION: Yes Tenderness to palpation present (GI) (Generalized) and Yes Guarding due to palpation present (GI) Extremity: COMMON NORMALS: no pedal edema Neuro: GLYNN COMA SCALE: document GCS findings Glynn coma scale eye opening: Spontaneous [place]nn coma scale verbal response: Orientated [place] coma scale motor response: Obey commands [place] coma scale total score: 15 SENSORY EXAM: Yes extremities (intact) Psych: COMMON NORMALS: speech normal SPEECH: Yes normal speech Skin: COMMON NORMALS: no rashes or lesions noted GENERAL SKIN EXAM: no rashes or lesions noted Course Vital Signs: Vital signs: Vital Signs Temperature 97.8 F 11/30/24 22:45 Pulse Rate 67 12/01/24 02:00 Respiratory Rate 16 12/01/24 02:00 Blood Pressure 139/84 12/01/24 02:00 Pulse Oximetry 100 12/01/24 02:00 Oxygen Delivery Me thod Room Air 12/01/24 02:00 Oxygen Flow Rate 1 12/01/24 01:00 MDM - Nausea/Vomiting/Diarrhea Medical Decision Making Patient is mildly hypertensive. She is afebrile. Vomiting improved after 3 mg IV Haldol and IV Zofran here. White blood cell count is 9.9. Hemoglobin is 12.7. Potassium is 3.3, bicarb of 19. Creatinine is 1. She has sigmoid colon thickening of the wall with surrounding edema suggestive of diverticulitis. Her lactic acid is 3.7. The right renal pelvis is dilated suggestive of ureteropelvic stricture, and the patient does have a urinary tract infection. Stricture appears chronic, as it looks present on a CT scan from 2021. However, with greater than 100 whites in the urine, if UTI is resistant to treatment, urology consultation could be needed. We have no urologist on staff currently for consult. We have a call out to other facilities for potential transfer and admission for diverticulitis, intractable vomiting, and UTI with ureteral stricture. [facility] has agreed to accept the patient. She is stable for transfer at this point. She is getting IV fluids, and will continue to get IV antibiotics. Lab Data 11/30/24 22:30 11/30/24 22:30 Radiology Impressions Abdomen/Pelvis CT 11/30/24 23:01 IMPRESSION: 1. Sigmoid colon mild wall thickening with surrounding edema, suggestive of diverticulitis. 2. Emphysematous changes. 3. Right renal pelvis is somewhat dilated suggestive of a ureteropelvic junction stricture, similar to prior exam, delayed phase postcontrast imaging study could further characterize this. 4. Urinary bladder wall thickening with mild surrounding edema, please correlate for cystitis. Laboratory Results WBC 9.91 10^3/uL (3.29-11.43) 11/30/24 22: RBC 4.72 10^6/uL (3.85-5.65) 11/30/24: Hgb 12.70 g/dL (11.27-16.99) 11/30/24 22: Hct 38.5 % (36-47) 11/30/24: MCV 81.6 fl (85-98) L 11/30/24: MCH 26.9 pg (27-33) L 11/30/24: MCHC 33.0 g/dL (30-55) 11/30/24 22: RDW 13.6 % (12.1-15.1) 11/30/24: Plt Count 260 10^3/cmm (157-399) 11/30/24: MPV 9.4 fL (7.4-10.4) 11/30/24 22: Neut % (Auto) 51.8 % 11/30/24 22: Lymph % (Auto) 41.0 % 11/30/24: [place] % (Auto) 5.5 % 07/27/25 22:30 Eos % (Auto) 1.0 % 11/30/24 22:30 Baso % (Auto) 0.5 % 11/30/24 22:30 Neut # (Auto) 5.13 10^3/uL (1.8-7.7) 11/30/24 22:30 Lymph # (Auto) 4.1 10^3/uL (0.8-4.8) 11/30/24 22: [place] # (Auto) 0.6 10^3/uL (0.2-0.9) 11/30/24 22:30 Eos # (Auto) 0.1 10^3/uL (0.0-0.8) 11/30/24 22: Baso # (Auto) 0.1 10^3/uL (0.0-0.1) 11/30/24 22: Nucleated RBC % (auto) 0 % 11/30/24 22: Nucleated RBCs # 0.0 /100WBC 11/30/24 22:30 Sodium 138 mmol/L (136-145) 11/30/24 22:30 Potassium 3.3 mmol/L (3.5-5.1) L 11/30/24 22:30 Chloride 99 mmol/L (98-107) 11/30/24 22: Carbon Dioxide 19 mmol/L (22-29) L 11/30/24 22:30 Anion Gap 23.3 (5-19) H 11/30/24 22:30 BUN 18 mg/dL (8-23) 11/30/24 22: Creatinine 1.0 mg/dL (0.5-0.9) H 11/30/24 22:30 GFR Calculation 55.8 mL/min (90-130) L 11/30/24 22:30 Glucose 271 mg/dL (65-115) H 11/30/24 22:30 Calculated Osmolality 297 mOsm/kg (285-295) H 11/30/24 22:30 Lactic Acid 3.7 mmol/L (0.5-2.2) H 11/30/24 22:30 Lactic Acid (Sepsis) 2.0 mmol/L (0.5-2.2) 12/01/24 01:44 Calcium 9.6 mg/dL (8.5-10.5) 11/30/24 22:30 Total Bilirubin 0.6 mg/dL (0.15-1.2) 11/30/24 22:30 AST 8 U/L (0-32) 11/30/24 22:30 ALT 6 U/L (0-33) 11/30/24 22:30 Alkaline Phosphatase 130 U/L (35-105) H 11/30/24 22:30 C-Reactive Protein 13.7 mg/L (0.0-4.9) H 11/30/24 22: Total Protein 8.2 g/dL (6.6-8.7) 11/30/24 22: Albumin 3.8 g/dL (3.5-5.2) 11/30/24: Globulin 4.4 g/dL (1.3-4.6) 11/30/24 22: Lipase 13 U/L (13-60) 11/30/24 22:30 Urine Color Yellow (Yellow) 12/01/24 00:18 Urine Appearance Cloudy (CLEAR) A 12/01/24 00:18 Urine pH 6.0 (5-7) 12/01/24 00:18 Ur Specific [place] 1.042 (1.005-1.030) H 12/01/24 00:18 Urine Protein Trace (Negative) A 12/01/24 00:18 Urine Glucose (UA) 1+ (Normal) H 12/01/24 00:18 Urine Ketones 1+ (Negative) H 12/01/24 00:18 Urine Blood Non-haemolysed trace (Negative) 12/01/24 00:18 Urine Nitrate Positive (Negative) A 12/01/24 00:18 Urine Bilirubin Negative (Negative) 12/01/24 00:18 Urine Urobilinogen 1.0 mg/dL (Negative) 12/01/24 00:18 Ur Leukocyte Esterase 2+ (Negative) A 12/01/24 00:18 Urine RBC 0-2 /hpf (0-2) 12/01/24 00:18 Urine WBC >100 /hpf (0-5) H 12/01/24 00:18 Ur Squamous Epith Cells 0-5 /hpf (0-5) 12/01/24 00:18 Amorphous Sediment Not Reportable 12/01/24 00:18 Urine Bacteria 4+ /hpf (NONE) H 12/01/24 00:18 Hyaline Casts 2.05 /lpf 12/01/24 00:18 Urine Opiates Screen Positive ng/mL (Negative) H 12/01/24 00:18 Ur Barbiturates Screen Negative ng/mL (Negative) 12/01/24 00:18 Ur Phencyclidine Scrn Negative ng/mL (Negative) 12/01/24 00:18 Ur Amphetamines Screen Negative ng/mL (Negative) 12/01/24 00:18 U Benzodiazepines Scrn Negative ng/mL (Negative) 12/01/24 00:18 Urine Cocaine Screen Negative ng/mL (Negative) 12/01/24 00:18 U Marijuana (THC) Screen Negative ng/mL (Negative) 12/01/24 00:18 All radiology interpretation(s) finalized by discharge Discharge Plan Discharge Patient Disposition: Xfer Short-Term Hosp Clinical Impression: Diverticulitis, UTI (urinary tract infection), Ureteral stricture, right Condition: Fair Print Language: New Zealander Coding Level of Care Code ED Director Clinical Research for Fang Lewis
--- NOTE | 2024-12-01 00:23 | PC.NURSE ---
pt O2 sat after CT dropped to 65% placed on nasal canula at 5L by MD. O2 titrated to 2L at this time. will continue to monitor.
[2024-12-01 00:31] LABS: Glucose Urine UA 1+ (Normal); Nitrate Urine Positive (Negative)
[2024-12-01] MEDS: metroNIDAZOLE IV 500 MG/100 ML PREMIX 100 MG IV (00:32)
[2024-12-01 00:36] LABS: Add Urine Microscopic? YES
[2024-12-01 00:38] LABS: PCP Screen Urine Negative (Negative)
[2024-12-01 00:44] LABS: Specific Gravity, Urine 1.042 (1.005-1.030)
[2024-12-01 02:03] LABS: Lactic Acid level (Lactate) 2.0 mmol/L (0.5-2.2)
--- NOTE | 2024-12-01 06:49 | PC.NURSE ---
report called at 0339 to Linda Rodriguez with [facility], still awaiting transport at this time.
== END 2024-12-01 10:40 | disposition short-term general hospital (02) ==
PROVIDERS: Emergency Provider Emergency Medicine
DX: K57.92 Diverticulitis of intestine, part unspecified, without perforation or abscess without bleeding (principal); N39.0 Urinary tract infection, site not specified; N13.5 Crossing vessel and stricture of ureter without hydronephrosis; E11.9 Type 2 diabetes mellitus without complications
CPT/HCPCS: 74177; 80053; 80306; 81001; 83605; 83690; 85025; 86140; 87077; 87086; 87186; 96365; 96366; 96367; 96375; 99285; J0744; J1630; J2405; J3490; J7030

== ENCOUNTER 2025-01-16 09:24 | Outpatient (CLI) | payer OTHER, SELFPAY ==
--- NOTE | 2025-01-16 09:37 | XRR_ITS ---
PROCEDURE INFORMATION: Exam: XR Left Knee Exam date and time: 01/16/2025 9:43 AM Age: 64 years old Clinical indication: Pain; Knee; Left; Additional info: Lt knee pain TECHNIQUE: Imaging protocol: Radiologic exam of the left knee. Views: 1 or 2 views. COMPARISON: No relevant prior studies available. FINDINGS: Bones/joints: Severe tricompartmental degenerative changes of the left knee joint. This is greatest at the lateral tibiofemoral compartment where there is a greatest amount of joint space loss, subchondral sclerosis and cystic changes. No knee joint effusion. Soft tissues: Overlying soft tissues are unremarkable. XR/XR knee LT 1-2V [id number] IMPRESSION: As above.
--- NOTE | 2025-01-16 09:37 | XRR_ITS ---
PROCEDURE INFORMATION: Exam: XR Lumbosacral Spine Exam date and time: 01/16/2025 9:43 AM Age: 64 years old Clinical indication: Low back pain; Lower back pain TECHNIQUE: Imaging protocol: Radiologic exam of the lumbosacral spine. Views: 2 or 3 views. COMPARISON: CT abdomen pelvis w con* [id number] 11/30/2024 11:23 PM FINDINGS: Bones/joints: Levoconvex curvature of the lumbar spine. Multilevel degenerative disc, facet and spondylosis. This results in varying degrees of neural foraminal narrowing likely greatest at L4-L5. Evaluation of the spinal canal can better be made with cross-sectional imaging. Otherwise the vertebral body heights are preserved. Soft tissues: Unremarkable. XR/XR lumbar spine 2-3V* [id number] IMPRESSION: As above.
== END 2025-01-16 09:25 | disposition home or self-care (01) ==
LOC: RAD 09:29
PROVIDERS: PCP Family Medicine; Visit Provider Family Medicine
DX: Z02.71 Encounter for disability determination (principal)
CPT/HCPCS: 72100; 73560

== ENCOUNTER 2025-04-07 10:54 | Emergency (ER) | payer MEDICAID, SELFPAY ==
[2025-04-07 10:54] VITALS: BP 152/61; PULSE 71; RESP 18; TEMP 36.4; O2SAT 95
--- NOTE | 2025-04-07 10:56 | XR_ITS ---
WS: [id number] Exam: XR chest 1V portable [id number] Date/Time of Exam: 04/07/2025 11:01 AM Reason For Exam: chest pain Comparison 11/06/2023. Lungs are fully inflated and clear. Normal cardiomediastinal silhouette. Bony structures are intact. Degenerative changes and mild dextroscoliosis of the T-spine. XR/XR chest 1V portable [id number] IMPRESSION: 1. No acute cardiopulmonary finding.
--- NOTE | 2025-04-07 10:58 | ECG_ITS ---
[facility]: [facility] Pat Name: Nona Sevilla Department: Room: Gender: Female [employer]ater: : 1960 Requested By: Nita Russo Order Number: [id number] Nancy MD: Lubna Koenig M.D. Measurements Intervals [place] Rate: 71 P: 0 IA: 0 QRS: 5 QRSD: 94 T: 32 QT: 389 QTc: 425 Interpretive Statements regular supraventricular rhythm LOW QRS VOLTAGE IN PRECORDIAL LEADS [QRS DEFLECTION < 1.0 mV IN CHEST LEADS] PATTERN CONSISTENT WITH PULMONARY DISEASE INTERPRETATION BASED ON A DEFAULT AGE OF 40 YEARS Compared to ECG 11/01/2021 07:01:30 Low QRS voltage now present Sinus rhythm no longer present T-wave abnormality no longer present Electronically Signed On 04-07-2025 18:58:12 EDI SPECIALIST by Lubna Koenig M.D. [email or web address]
--- NOTE | 2025-04-07 11:00 | ED_ITS ---
HPI - Chest Pain 2 General: Chief Complaint: Chest Pain Stated Complaint: Chest pain History of Present Illness: 64-year-old female with history of diabe emeterio and obesity who presents to the emergency room with chest pain. She says this started a couple of hours ago. Central chest pain that is tight and radiates to the left arm. She describes the pain as a pressure. IV was not obtained so she did not receive any nitroglycerin on the ambulance. No cough. No fever. No vomiting. No altered mental status. No abdominal pain. No lower extremity swelling. No known cardiac history Related Data Home Medications ?Medication ?Instructions ?Recorded ?Confirmed acetaminophen 500 mg tablet 1,000 mg PO Q6H PRN Fever Or Pain 04/07/25 04/07/25 (Tylenol Extra Strength) Previous Rx's ?Medication ?Instructions ?Recorded blood-glucose,production technologist,cont #1 ea 02/05/24 (Dexcom G7 Tray Line Supervisor) Cock Up Velcro Wrist Brace #1 ea 05/13/24 insulin glargine 100 unit/mL (3 45 unit (0.45 mL) SUBC UT DAILY #90 06/23/24 mL) subcutaneous pen (Lantus mL Solostar U-100 Insulin) blood-glucose sensor (Dexcom G7 #9 ea 07/02/24 Sensor device) insulin aspart U-100 100 unit/mL See Rx Instructions . Route 10/08/24 (3 mL) subcutaneous pen (Novolog .COMPLEX #15 mL FlexPen U-100 Insulin aspart) Allergies Allergy/AdvReac Type Severity Reaction Status Date / Time insulin detemir (From Allergy Intermediate ALGY-Swell Verified 06/17/24 07:06 Levemir U-100 Insulin) Lip/Tongue/Throat acetaminophen (From Percocet) Allergy ADR-Nausea Verified 06/17/24 07:06 atorvastatin Allergy bad Verified 06/17/24 07:06 diarrhea empagliflozin (From Allergy Unknown Verified 06/17/24 07:06 Jardiance) etodolac Allergy Unknown Verified 06/17/24 07:06 liraglutide (From Victoza) Allergy severe Verified 06/17/24 07:06 burps and gas nabumetone (From Relafen) Allergy ADR-Nausea Verified 06/17/24 07:06 oxycodone (From Percocet) Allergy ADR-Nausea Verified 06/17/24 07:06 prochlorperazine (From Allergy ADR/ALGY-Pa Verified 06/17/24 07:06 Compazine) lpitations topiramate (From Topamax) Allergy ADR-Agitate Verified 06/17/24 07:06 d triamcinolone (From Nasacort) Allergy ADR-Nausea Verified 06/17/24 07:06 Review of Systems 2 Narrative: Constitutional symptoms: Negative except as documented in HPI. Skin symptoms: Negative except as documented in HPI. Eye symptoms: Negative except as documented in HPI. ENMT symptoms: Negative except as documented in HPI. Respiratory symptoms: Negative except as documented in HPI. Cardiovascular symptoms: Negative except as documented in HPI. Gastrointestinal symptoms: Negative except as documented in HPI. Genitourinary symptoms: Negative except as documented in HPI. Musculoskeletal symptoms: Negative except as documented in HPI. Neurologic symptoms: Negative except as documented in HPI. Psychiatric symptoms: Negative except as documented in HPI. Endocrine symptoms: Negative except as documented in HPI. PFSH ED 2 PFSH: Medical History (Updated 04/07/25 @ 13:29 by Nita Dc MD) Left shoulder pain Unsteady gait Pneumonia Vomiting Iron deficiency anemia Normal colonoscopy HX: benign breast biopsy Gastric ulcer Chronic GERD Insulin dependent diabetes mellitus Type 2 diabetes mellitus Anxiety Liver mass benign Surgical History History of colonoscopy History of esophagogastroduodenoscopy (EGD) H/O discectomy L4-L5 History of hysterectomy IGNACIO-BSO. Benign H/O arthroscopic knee surgery Left History of tubal ligation Hx of cholecystectomy Family History Father CAD (coronary artery disease) Mother CAD (coronary artery disease) Social History Smoking and tobacco/nicotine status: never used tobacco/nicotine Alcohol intake: former Substance/Drug Use: never Adopted: No Lives independently: Yes Household members: spouse Marital status: service: No Current occupational exposures/hazards: No Physical Exam 2 Narrative: EXAM NARRATIVE: General: Alert, no acute distress. Skin: Warm, dry. Head: Normocephalic, atraumatic. Neck: Supple, trachea midline. Eye: Extraocular movements are intact. Ears, nose, mouth and throat: mucosa moist. Cardiovascular: Regular, Normal peripheral perfusion. Respiratory: Lungs are clear to auscultation, respirations are non-labored, breath sounds are equal, Symmetrical chest wall expansion. Gastrointestinal: Soft, Nontender, Non distended Musculoskeletal: Normal ROM, no deformity. Neurological: Alert and oriented, No focal neurological deficit observed. Psychiatric: Cooperative, appropriate mood & affect. Course 2 Vital Signs: Vital signs: Vital Signs Temperature 97.6 F 04/07/25 10:54 Pulse Rate 59 L 04/07/25 13:30 Respiratory Rate 18 04/07/25 13:00 Blood Pressure 145/78 04/07/25 13:30 Pulse Oximetry 97 04/07/25 13:30 Oxygen Delivery Me thod Room Air 04/07/25 13:00 MDM - Chest Pain Medical Decision Making Medical decision making Patient's reason for coming to the emergency room: Chest pain Social determinants: Retired. Comes from home. I reviewed the patient's medical record. Patient's most recent visit to the emergency room was for diverticulitis I reviewed the patient's current home meds Patient is an insulin-dependent diabetic Alternate historians: None Differential diagnosis for patient with chest pain includes but is not limited to and based on the above HPI, review of systems and physical exam: Pneumonia. unstable angina. angina. Acute coronary syndrome / [place]. Pulmonary embolism. Costochondritis / musculoskeletal. Pleurisy. Pericarditis. Esophageal spasm. Pancreatitis. Cholecystitis. Orders placed to evaluate differential diagnosis based on the above differential, HPI and physical exam EKG: Time 10:58 AM. Rate 71. Normal sinus rhythm, No ST-T changes, no ectopy, normal MO & QRS intervals, This was reviewed and interpreted by myself the ER physician at 11:04 AM Repeat EKG: Time 1259. Rate 59. Sinus bradycardia, No ST-T changes, no ectopy, normal MO & QRS intervals, This was reviewed and interpreted by myself the ER physician at 1303. No significant changes from EKG done previously. Slightly slower rate. Chest x-ray: No acute process. No infiltrate. No pneumothorax. This was reviewed and interpreted by myself the emergency room physician. I also reviewed the radiology report. Lab Review: Laboratory results were reviewed and interpreted by myself the emergency room physician. No leukocytosis. No anemia. No renal failure. Serial troponins are negative. Assessment of risk: Level of risk: Moderate risk patient. Multiple comorbidities. Hospitalization considerations: We did discuss possible observation here the heart score is just 3 her story was fairly convincing. She does not want to be admitted today and chooses to go home Clinical decision support: Heart score is 3. Serial troponins were negative. Patient chooses to go home Reexamination: Patient remained stable. No increased work of breathing. No altered mental status. No focal motor deficits. Chest pain resolved spontaneously Assessment and plan: Chest pain - Discharged home - Discussed plan with patient. Answered any questions. - Evaluation and treatment of this problem were appropriate in the emergency setting. Lab Data 04/07/25 11:07 04/07/25 11:07 Radiology Impressions Chest X-Ray 04/07/25 10:56 IMPRESSION: 1. No acute cardiopulmonary finding. Laboratory Results WBC 7.31 10^3/uL (3.29-11.43) 04/07/25 11:07 RBC 4.44 10^6/uL (3.85-5.65) 04/07/25 11:07 Hgb 12.40 g/dL (11.27-16.99) 04/07/25 11:07 Hct 39.2 % (36-47) 04/07/25 11:07 MCV 88.3 fl (85-98) 04/07/25 11:07 MCH 27.9 pg (27-33) 04/07/25 11:07 MCHC 31.6 g/dL (30-55) 04/07/25 11:07 RDW 13.5 % (12.1-15.1) 04/07/25 11:07 Plt Count 211 10^3/cmm (157-399) 04/07/25 11:07 MPV 8.9 fL (7.4-10.4) 04/07/25 11:07 Neut % (Auto) 60.4 % 04/07/25 11:07 Lymph % (Auto) 26.9 % 04/07/25 11:07 Bond % (Auto) 8.1 % 04/07/25 11:07 Eos % (Auto) 3.7 % 04/07/25 11:07 Baso % (Auto) 0.5 % 04/07/25 11:07 Neut # (Auto) 4.41 10^3/uL (1.8-7.7) 04/07/25 11:07 Lymph # (Auto) 2.0 10^3/uL (0.8-4.8) 04/07/25 11:07 Bond # (Auto) 0.6 10^3/uL (0.2-0.9) 04/07/25 11:07 Eos # (Auto) 0.3 10^3/uL (0.0-0.8) 04/07/25 11:07 Baso # (Auto) 0.0 10^3/uL (0.0-0.1) 04/07/25 11:07 Nucleated RBC % (auto) 0 % 04/07/25 11:07 Nucleated RBCs # 0.0 /100WBC 04/07/25 11:07 PT 14.00 SECONDS (12.1-14.9) 04/07/25 11:07 INR 1.01 (0.8-1.2) 04/07/25 11:07 APTT 23.0 SECONDS (23.9-36.7) L 04/07/25 11:07 Sodium 140 mmol/L (136-145) 04/07/25 11:07 Potassium 4.1 mmol/L (3.5-5.1) 04/07/25 11:07 Chloride 104 mmol/L (98-107) 04/07/25 11:07 Carbon Dioxide 22 mmol/L (22-29) 04/07/25 11:07 Anion Gap 18.1 (5-19) 04/07/25 11:07 BUN 13 mg/dL (8-23) 04/07/25 11:07 Creatinine 0.8 mg/dL (0.5-0.9) 04/07/25 11:07 GFR Calculation 72.2 mL/min (90-130) L 04/07/25 11:07 Glucose 270 mg/dL (65-115) H 04/07/25 11:07 Calculated Osmolality 300 mOsm/kg (285-295) H 04/07/25 11:07 Calcium 8.7 mg/dL (8.5-10.5) 04/07/25 11:07 Total Bilirubin 0.6 mg/dL (0.15-1.2) 04/07/25 11:07 AST 9 U/L (0-32) 04/07/25 11:07 ALT 7 U/L (0-33) 04/07/25 11:07 Alkaline Phosphatase 115 U/L (35-105) H 04/07/25 11:07 Troponin T Baseline 11 ng/L (0-10) H 04/07/25 11:07 Troponin T 120 Minute 12.58 ng/L (0-10) H 04/07/25 12:37 Delta Troponin T 1.58 ABS# (0-10) 04/07/25 12:37 NT-Pro-B Natriuret Pep 244 pg/mL (0-125) H 04/07/25 11:07 Total Protein 7.3 g/dL (6.6-8.7) 04/07/25 11:07 Albumin 3.9 g/dL (3.5-5.2) 04/07/25 11:07 Globulin 3.4 g/dL (1.3-4.6) 04/07/25 11:07 Lipase 14 U/L (13-60) 04/07/25 11:07 All radiology interpretation(s) finalized by discharge Clincial Decision Support The following clinical decision support tools were used to aid in care of the patient HEART Score -> History: Moderately Suspicious, EKG: Normal, Age: 45-64 yrs, Risk Factors: 1 or 2 Risk Factors, Troponin: Baseline Trop <16 ng/L. Resulting HEART Score: 3. Discharge Plan Discharge Patient Disposition: Home Clinical Impression: Chest pain Condition: Stable Prescriptions: No Action (DME) Cock Up Velcro Wrist Brace See Rx Instructions .Route .MEDSUPPLY Qty: 1 0RF Rx Instructions: As directed (DME) Dexcom G7 Tray Line Supervisor Misc See Rx Instructions .ROUTE .COMPLEX Qty: 1 0RF Dose Instruction: DIRECTED Rx Instructions: DIRECTED insulin glargine [Lantus Solostar U-100 Insulin] 100 unit/mL (3 mL) insulin pen 45 unit SUBCUT DAILY Qty: 90 0RF (DME) Dexcom G7 Sensor Device See Rx Instructions .ROUTE .COMPLEX Qty: 9 3RF Dose Instruction: DIRECTED, CHANGE EVERY 10 DAYS Rx Instructions: DIRECTED, CHANGE EVERY 10 DAYS insulin aspart U-100 [Novolog FlexPen U-100 Insulin] 100 unit/mL (3 mL) insulin pen See Rx Instructions .ROUTE .COMPLEX Qty: 15 0RF Dose Instruction: INJECT 10 UNITS SUBCUTANEOUSLY THREE TIMES DAILY Rx Instructions: INJECT 10 UNITS SUBCUTANEOUSLY THREE TIMES DAILY acetaminophen [Tylenol Extra Strength] 500 mg Tablet 1,000 mg PO Q6H PRN (Reason: Fever Or Pain) Discharge Orders: Discharge ED (Routine); Ordered 04/07/25 Ordered By: Nita Dc Referrals: Mila Garzon DO [Primary Care Provider, Family Practice] Discharge Diet: Usual diet Discharge Activity: Increase activity as tolerated Patient Instructions: Chest Pain (ED), Opioid Safety, Pain Management, Patient Portal & Vitaliy Instructions Activity Restrictions/Additional Instructions: Please return immediately to the emergency room if you develop more chest pain. Please call your PCP and have prompt follow-up for possible stress test. Thank you for choosing [facility] for your healthcare needs today. You have been screened and evaluated and felt safe for discharge. Health conditions do change or evolve sometimes and as such it is important that you follow up with your Primary Doctor to be re checked, 3-5 days is a general good time frame for follow up. You are always welcome to return to the ED for re assessment if your symptoms are worsening or you have new concerns Print Language: [place] Coding Level of Care Code ED Is Support Analyst for Chg Fwd Heart Score HEART Score Components History: Moderately Suspicious EKG: Normal Age: 45-64 yrs Risk Factors: 1 or 2 Risk Factors Troponin: Baseline Trop <16 ng/L HEART Score RESULT HEART Score: 3
[2025-04-07 11:16] VITALS: BP 152/61; PULSE 65; RESP 16; O2SAT 98
[2025-04-07 11:16] LABS: Hematocrit 39.2 % (36-47); Hemoglobin 12.40 g/dL (11.27-16.99); Mean Corpuscular HGB Conc 31.6 g/dL (30-55); Mean Corpuscular Hemoglobin 27.9 pg (27-33); Mean Corpuscular Volume 88.3 fl (85-98); Nucleated Red Blood Cells % 0 %; Platelet Count 211 10^3/cmm (157-399); Red Blood Count 4.44 10^6/uL (3.85-5.65); White Blood Count 7.31 10^3/uL (3.29-11.43)
[2025-04-07 11:31] LABS: Partial Thromboplastin Time 23.0 SECONDS (23.9-36.7)
[2025-04-07 11:32] LABS: INR 1.01 (0.8-1.2); Prothrombin Time 14.00 SECONDS (12.1-14.9)
[2025-04-07 11:37] VITALS: BP 152/61; PULSE 63; RESP 18; O2SAT 100
--- NOTE | 2025-04-07 11:41 | PC.NURSE ---
CHEST PAIN RELIEVED PRIOR TO NITRO ADMINISTRATION, DR HERNANDEZ NOTIFIED.
[2025-04-07 11:42] LABS: Troponin(5th) Baseline 11 ng/L (0-10)
[2025-04-07 11:54] LABS: Alanine Aminotransferase 7 U/L (0-33); Albumin Level 3.9 g/dL (3.5-5.2); Alkaline Phosphatase 115 U/L (35-105); Aspartate Amino Transferase 9 U/L (0-32); Blood Urea Nitrogen 13 mg/dL (8-23); Calcium 8.7 mg/dL (8.5-10.5); Carbon Dioxide 22 mmol/L (22-29); Chloride 104 mmol/L (98-107); Globulin 3.4 g/dL (1.3-4.6); Glucose 270 mg/dL (65-115); Lipase 14 U/L (13-60); NT Pro B Type Natriuretic Pept 244 pg/mL (0-125); Osmolality Calculated 300 mOsm/kg (285-295); Sodium 140 mmol/L (136-145); Total Protein 7.3 g/dL (6.6-8.7)
[2025-04-07 11:57] LABS: Anion Gap 18.1 (5-19); Potassium 4.1 mmol/L (3.5-5.1)
[2025-04-07 12:30] VITALS: BP 140/74; PULSE 60; RESP 18; O2SAT 100
--- NOTE | 2025-04-07 12:31 | PC.PHAR ---
Patient states she still takes her insulins. I checked with Pharmacy and she has not filled them since 10/09/24 Novolog for 50days , and Lantus 09/19/24 90days
--- NOTE | 2025-04-07 12:56 | ECG_ITS ---
[facility]: [facility]25[facility]07 Pat Name: Nona Sevilla Department: Room: Gender: Female Academic Success Coordinator: : 1960 Requested By: Nita Russo Order Number: [id number] Nancy MD: Lubna Koenig M.D. Measurements Intervals [place] Rate: 59 P: 30 W[place]: 185 QRS: 10 QRSD: 89 T: 9 QT: 421 QTc: 419 Interpretive Statements SINUS BRADYCARDIA LOW QRS VOLTAGE IN PRECORDIAL LEADS [QRS DEFLECTION < 1.0 mV IN CHEST LEADS] Compared to ECG 04/07/2025 10:58:17 Atrial fibrillation no longer present Electronically Signed On 04-07-2025 20:32:49 OR ASSISTANT by Lubna Koenig M.D. [email or web address]
[2025-04-07 13:00] VITALS: BP 144/77; PULSE 64; RESP 18; O2SAT 97
[2025-04-07 13:15] LABS: Troponin 5 2HR 12.58 ng/L (0-10); Troponin 5 2HR Delta 1.58 ABS# (0-10)
[2025-04-07 13:30] VITALS: BP 145/78; PULSE 59; O2SAT 97
== END 2025-04-07 13:37 | disposition home or self-care (01) ==
PROVIDERS: Emergency Provider Emergency Medicine; PCP Family Medicine
DX: R07.9 Chest pain, unspecified (principal); Z79.4 Long term (current) use of insulin; E11.9 Type 2 diabetes mellitus without complications
CPT/HCPCS: 36415; 71045; 80053; 83690; 83880; 84484; 85025; 85610; 85730; 93005; 99285